=== PATIENT | female | born 1985 | race Caucasian/White ===

== ENCOUNTER 2017-10-05 00:23 | Inpatient (IN) | payer OTHER, MEDICAID ==
[~2017-10-05] VITALS: Ht 167.6 cm; Wt 68.3 kg
[~2017-10-05 00:23] MED LIST: CLOZ100 PO; DOCU250C91 PO; QUET300T2 PO
[2017-10-05 01:23] LABS: BASOPHILS % (AUTO) 0.7 % (0.0-2.0); EOSINOPHILS % (AUTO) 0.7 % (1.0-6.0); HEMATOCRIT 35.9 % (36-46); HEMOGLOBIN 12.4 g/dL (12.0-16.0); LYMPHOCYTES # (AUTO) 2.3 K/uL (1.0-4.8); LYMPHOCYTES % (AUTO) 35.3 % (22.0-44.0); MEAN CORPUSCULAR HEMOGLOBIN 30.4 pg (26.0-34.0); MEAN CORPUSCULAR HGB CONC 34.6 G/dL (31.0-37.0); MEAN CORPUSCULAR VOLUME 88 fL (80-100); MONOCYTES # (AUTO) 0.7 K/uL (0.1-1.0); MONOCYTES % (AUTO) 10.7 % (2.0-9.0); NEUTROPHILS # (AUTO) 3.4 K/uL (1.8-7.7); NEUTROPHILS % (AUTO) 52.6 % (40.0-70.0); PLATELET COUNT (AUTO) 260 K/uL (150-450); RED BLOOD CELL COUNT(AUTO) 4.09 MIL/uL (4.00-5.20)
[2017-10-05 01:39] LABS: ANION GAP 8 mmol/L (8-16); CALCIUM, TOTAL 9.1 mg/dL (8.8-10.5); CARBON DIOXIDE 25 mmol/L (22-29); CHLORIDE 106 mmol/L (98-107); CREATININE 1.13 mg/dL (0.60-1.30); GLOMERULAR FILTR. RATE CALC 56 mL/min (>60); GLUCOSE,RANDOM 125 mg/dL (70-110); POTASSIUM 3.8 mmol/L (3.5-5.1); SODIUM SERUM 139 mmol/L (136-145); UREA NITROGEN, BLOOD 13 mg/dL (7-18)
[2017-10-05 01:44] LABS: ALANINE AMINOTRANSFERASE 22 U/L (12-78); ALBUMIN 3.9 g/dL (3.4-5.0); ALKALINE PHOSPHATASE 47 U/L (46-116); ASPARTATE AMINOTRANSFERASE 20 U/L (15-37); BILIRUBIN,TOTAL 0.3 mg/dL (0.1-1.0); TOTAL PROTEIN, SERUM 7.5 g/dL (6.4-8.2)
[2017-10-05 05:24] LABS: AMPHET/METH SCREEN,URINE NEGATIVE (NEGATIVE); BARBITURATE SCREEN, URINE NEGATIVE (NEGATIVE); BENZODIAZEPINES SCREEN,URINE NEGATIVE (NEGATIVE); CANNABINOID SCREEN,URINE NEGATIVE (NEGATIVE); COCAINE SCREEN,URINE NEGATIVE (NEGATIVE); METHADONE SCREEN, URINE NEGATIVE (NEGATIVE); OPIATE SCREEN,URINE NEGATIVE (NEGATIVE)
[2017-10-05 05:25] LABS: PHENCYCLIDINE SCREEN,URINE NEGATIVE (NEGATIVE)
[2017-10-05] MEDS ORDERED: ZOLPIDEM TARTRATE 10 MG TABLET PO PRN (06:45)
[2017-10-05 18:33] VITALS: BP 102/64
[2017-10-06 01:07] VITALS: BP 121/79
[2017-10-06 08:22] VITALS: BP 125/71
[2017-10-06 16:23] VITALS: BP 136/76
[2017-10-07 01:20] VITALS: BP 122/73
[2017-10-07 08:30] VITALS: BP 118/79
[2017-10-07 09:57] LABS: GLUCOMETER DEV NAME(LOC) BV3S 2; GLUCOSE,POINT OF CARE 105 MG/DL (70-110)
[2017-10-07] MEDS ORDERED: LORazepam 2 MG/ML VIAL IM ONE (10:00)
[2017-10-07] MEDS ORDERED: HALOPERIDOL LACTATE 5 MG/ML VIAL IM ONE (10:00)
[2017-10-07 14:14] VITALS: BP 120/62
[2017-10-07 16:11] VITALS: BP 115/68
[2017-10-07] MEDS: LORazepam 2 MG TABLET PO PRN (16:15)
[2017-10-07] MEDS: HALOPERIDOL 5 MG TABLET PO PRN (16:15)
[2017-10-07] MEDS: TOPIRAMATE 100 MG TABLET PO SCH (16:16)
[2017-10-07] MEDS: CloZAPine 100 MG TABLET PO SCH (20:59)
[2017-10-07] MEDS: LORazepam 0.5 MG TABLET PO SCH (20:59)
[2017-10-08 07:15] VITALS: BP 110/69
[2017-10-08] MEDS: TOPIRAMATE 100 MG TABLET PO SCH ×2 (08:14→16:31)
[2017-10-08] MEDS: BuPROPion HCL 75 MG TABLET PO SCH (08:14)
[2017-10-08] MEDS: DOCUSATE SODIUM 250 MG CAPSULE PO SCH (08:14)
[2017-10-08] MEDS: CloZAPine 100 MG TABLET PO SCH ×2 (08:14→20:21)
[2017-10-08] MEDS: LORazepam 2 MG TABLET PO PRN ×2 (08:16→16:31)
[2017-10-08 08:48] VITALS: BP 101/64
[2017-10-08 16:20] VITALS: BP 117/63
[2017-10-08] MEDS ORDERED: ACETAMINOPHEN 325 MG TABLET PO PRN (20:00)
[2017-10-08] MEDS ORDERED: IBUPROFEN 600 MG TABLET PO PRN (20:00)
[2017-10-08] MEDS: LORazepam 0.5 MG TABLET PO SCH (20:21)
[2017-10-09 04:45] VITALS: BP 115/70
[2017-10-09] MEDS: BuPROPion HCL 75 MG TABLET PO SCH (08:09)
[2017-10-09] MEDS: TOPIRAMATE 100 MG TABLET PO SCH ×2 (08:09→16:12)
[2017-10-09] MEDS: DOCUSATE SODIUM 250 MG CAPSULE PO SCH (08:09)
[2017-10-09] MEDS: CloZAPine 100 MG TABLET PO SCH ×2 (08:09→20:23)
[2017-10-09] MEDS: LORazepam 2 MG TABLET PO PRN ×2 (08:09→16:12)
[2017-10-09 08:38] VITALS: BP 107/72
[2017-10-09 08:50] LABS: FREE T4 (FREE THYROXINE) 1.17 ng/dL (0.76-1.46); THYROID STIMULATING HORMONE 2.03 uIU/mL (0.36-3.74)
[2017-10-09 16:10] VITALS: BP 129/69
[2017-10-09] MEDS: LORazepam 0.5 MG TABLET PO SCH (20:23)
[2017-10-10] MEDS: LORazepam 2 MG TABLET PO PRN ×3 (06:22→16:48)
[2017-10-10] MEDS: BuPROPion HCL 75 MG TABLET PO SCH (08:14)
[2017-10-10] MEDS: DOCUSATE SODIUM 250 MG CAPSULE PO SCH (08:14)
[2017-10-10] MEDS: TOPIRAMATE 100 MG TABLET PO SCH ×2 (08:14→16:47)
[2017-10-10] MEDS: CloZAPine 100 MG TABLET PO SCH ×2 (08:14→20:26)
[2017-10-10 08:37] VITALS: BP 114/67
[2017-10-10] MEDS ORDERED: ONDANSETRON HCL 4 MG TABLET PO PRN (11:00)
[2017-10-10 16:28] VITALS: BP 116/68
[2017-10-10] MEDS: LORazepam 0.5 MG TABLET PO SCH (20:26)
[2017-10-11 05:57] VITALS: BP 125/68
[2017-10-11] MEDS: CloZAPine 100 MG TABLET PO SCH ×2 (08:08→20:20)
[2017-10-11] MEDS: DOCUSATE SODIUM 250 MG CAPSULE PO SCH (08:08)
[2017-10-11] MEDS: TOPIRAMATE 100 MG TABLET PO SCH ×2 (08:08→16:08)
[2017-10-11] MEDS: BuPROPion HCL 75 MG TABLET PO SCH (08:13)
[2017-10-11 08:36] VITALS: BP 111/70
[2017-10-11] MEDS: LORazepam 2 MG TABLET PO PRN (16:08)
[2017-10-11 16:11] VITALS: BP 125/93
[2017-10-11] MEDS: LORazepam 0.5 MG TABLET PO SCH (20:20)
[2017-10-12 04:32] VITALS: BP 111/66
[2017-10-12 08:24] VITALS: BP 114/71
[2017-10-12] MEDS: LORazepam 2 MG TABLET PO PRN (08:25)
[2017-10-12] MEDS: DOCUSATE SODIUM 250 MG CAPSULE PO SCH (08:25)
[2017-10-12] MEDS: TOPIRAMATE 100 MG TABLET PO SCH ×2 (08:25→17:06)
[2017-10-12] MEDS: CloZAPine 100 MG TABLET PO SCH ×2 (08:25→20:52)
[2017-10-12] MEDS: BuPROPion HCL 75 MG TABLET PO SCH (08:25)
[2017-10-12 08:51] LABS: BASOPHILS % (AUTO) 0.8 % (0.0-2.0); EOSINOPHILS % (AUTO) 0.9 % (1.0-6.0); HEMATOCRIT 35.9 % (36-46); HEMOGLOBIN 12.5 g/dL (12.0-16.0); LYMPHOCYTES % (AUTO) 34.9 % (22.0-44.0); MEAN CORPUSCULAR HEMOGLOBIN 30.5 pg (26.0-34.0); MEAN CORPUSCULAR HGB CONC 34.8 G/dL (31.0-37.0); MEAN CORPUSCULAR VOLUME 88 fL (80-100); MONOCYTES # (AUTO) 0.6 K/uL (0.1-1.0); MONOCYTES % (AUTO) 10.2 % (2.0-9.0); NEUTROPHILS % (AUTO) 53.2 % (40.0-70.0); PLATELET COUNT (AUTO) 291 K/uL (150-450); RED BLOOD CELL COUNT(AUTO) 4.09 MIL/uL (4.00-5.20); RED CELL DISTRIBUTION WIDTH 13.3 % (11.5-14.5)
[2017-10-12 16:51] VITALS: BP 122/74
[2017-10-12] MEDS: LORazepam 0.5 MG TABLET PO SCH (20:52)
[2017-10-13 07:16] VITALS: BP 126/72
[2017-10-13 08:15] VITALS: BP 116/71
[2017-10-13] MEDS: BuPROPion HCL 75 MG TABLET PO SCH (08:37)
[2017-10-13] MEDS: DOCUSATE SODIUM 250 MG CAPSULE PO SCH (08:38)
[2017-10-13] MEDS: CloZAPine 100 MG TABLET PO SCH ×2 (08:38→20:50)
[2017-10-13] MEDS: LORazepam 2 MG TABLET PO PRN ×2 (08:38→16:47)
[2017-10-13] MEDS: TOPIRAMATE 100 MG TABLET PO SCH ×2 (08:38→17:32)
[2017-10-13 16:05] VITALS: BP 114/75
[2017-10-13] MEDS: HALOPERIDOL 5 MG TABLET PO PRN (16:47)
[2017-10-13] MEDS: LORazepam 0.5 MG TABLET PO SCH (20:50)
[2017-10-14 06:01] VITALS: BP 120/71
[2017-10-14] MEDS: CloZAPine 100 MG TABLET PO SCH ×2 (08:25→20:37)
[2017-10-14] MEDS: TOPIRAMATE 100 MG TABLET PO SCH ×2 (08:25→16:53)
[2017-10-14] MEDS: BuPROPion HCL 75 MG TABLET PO SCH (08:25)
[2017-10-14] MEDS: LORazepam 2 MG TABLET PO PRN (08:25)
[2017-10-14] MEDS: DOCUSATE SODIUM 250 MG CAPSULE PO SCH (08:25)
[2017-10-14 14:58] VITALS: BP 103/73
[2017-10-14 16:10] VITALS: BP 104/70
[2017-10-14] MEDS: LORazepam 0.5 MG TABLET PO SCH (20:37)
[2017-10-15 07:23] VITALS: BP 110/72
[2017-10-15] MEDS: TOPIRAMATE 100 MG TABLET PO SCH ×2 (08:12→17:28)
[2017-10-15] MEDS: HALOPERIDOL 5 MG TABLET PO PRN ×2 (08:13→16:16)
[2017-10-15] MEDS: CloZAPine 100 MG TABLET PO SCH ×2 (08:13→20:47)
[2017-10-15] MEDS: BuPROPion HCL 75 MG TABLET PO SCH (08:13)
[2017-10-15 08:15] VITALS: BP 117/67
[2017-10-15] MEDS: DOCUSATE SODIUM 250 MG CAPSULE PO SCH (08:44)
[2017-10-15 16:05] VITALS: BP 110/69
[2017-10-15] MEDS: LORazepam 2 MG TABLET PO PRN (16:16)
[2017-10-15] MEDS: LORazepam 0.5 MG TABLET PO SCH (20:47)
[2017-10-16 05:44] VITALS: BP 114/70
[2017-10-16 08:17] VITALS: BP 110/72
[2017-10-16] MEDS: DOCUSATE SODIUM 250 MG CAPSULE PO SCH (09:09)
[2017-10-16] MEDS: CloZAPine 100 MG TABLET PO SCH ×2 (09:09→20:09)
[2017-10-16] MEDS: HALOPERIDOL 5 MG TABLET PO PRN ×2 (09:10→16:58)
[2017-10-16] MEDS: LORazepam 2 MG TABLET PO PRN ×2 (09:10→16:58)
[2017-10-16] MEDS: TOPIRAMATE 100 MG TABLET PO SCH ×2 (09:10→17:34)
[2017-10-16] MEDS: BuPROPion HCL 75 MG TABLET PO SCH (09:10)
[2017-10-16 16:29] VITALS: BP 110/69
[2017-10-16] MEDS: LORazepam 0.5 MG TABLET PO SCH (20:10)
[2017-10-17 04:04] VITALS: BP 117/66
[2017-10-17 08:17] VITALS: BP 121/68
[2017-10-17] MEDS: DOCUSATE SODIUM 250 MG CAPSULE PO SCH (08:42)
[2017-10-17] MEDS: CloZAPine 100 MG TABLET PO SCH ×2 (08:42→20:31)
[2017-10-17] MEDS: TOPIRAMATE 100 MG TABLET PO SCH ×2 (08:43→17:04)
[2017-10-17] MEDS: BuPROPion HCL 75 MG TABLET PO SCH (08:43)
[2017-10-17] MEDS ORDERED: CLOZ100 PO (15:57)
[2017-10-17] MEDS ORDERED: BUPR75 PO (15:57)
[2017-10-17] MEDS ORDERED: DOCU250C91 PO (15:57)
[2017-10-17] MEDS ORDERED: TOPI100T37 PO (15:57)
[2017-10-17 16:09] VITALS: BP 123/74
[2017-10-17] MEDS: LORazepam 2 MG TABLET PO PRN (16:23)
[2017-10-17] MEDS: HALOPERIDOL 5 MG TABLET PO PRN (17:23)
[2017-10-17] MEDS: LORazepam 0.5 MG TABLET PO SCH (20:31)
[2017-10-18 06:41] VITALS: BP 107/73
[2017-10-18] MEDS: BuPROPion HCL 75 MG TABLET PO SCH (08:16)
[2017-10-18] MEDS: TOPIRAMATE 100 MG TABLET PO SCH ×2 (08:17→17:02)
[2017-10-18] MEDS: CloZAPine 100 MG TABLET PO SCH ×2 (08:18→20:20)
[2017-10-18] MEDS: DOCUSATE SODIUM 250 MG CAPSULE PO SCH (08:18)
[2017-10-18] MEDS: LORazepam 2 MG TABLET PO PRN ×2 (08:19→16:21)
[2017-10-18 08:30] VITALS: BP 105/76
[2017-10-18 16:05] VITALS: BP 110/74
[2017-10-18] MEDS: HALOPERIDOL 5 MG TABLET PO PRN (16:21)
[2017-10-18] MEDS: LORazepam 0.5 MG TABLET PO SCH (20:20)
[2017-10-19 05:48] VITALS: BP 110/68
[2017-10-19 08:31] VITALS: BP 110/74
[2017-10-19] MEDS: BuPROPion HCL 75 MG TABLET PO SCH (09:15)
[2017-10-19] MEDS: TOPIRAMATE 100 MG TABLET PO SCH (09:15)
[2017-10-19] MEDS: DOCUSATE SODIUM 250 MG CAPSULE PO SCH (09:15)
[2017-10-19] MEDS: CloZAPine 100 MG TABLET PO SCH (09:15)
== END 2017-10-19 13:00 | disposition home or self-care (01) | DRG 885 ==
LOC: EMS 00:26 → B3A 16:32
PROVIDERS: ADMIT Psychiatry & Neurology Psychiatry; ATTEND Psychiatry & Neurology Psychiatry
DX: F20.0 Paranoid schizophrenia (principal); R11.0 Nausea; R51 Headache; Z79.899 Other long term (current) drug therapy
CPT/HCPCS: 84439; 84443; 99285; G0480; J1630; J2060

== ENCOUNTER 2017-11-11 19:55 | Inpatient (IN) | payer OTHER, MEDICAID ==
[~2017-11-11] VITALS: Ht 170.2 cm; Wt 70.9 kg
[~2017-11-11 19:55] MED LIST changes: +BUPR75 PO; -QUET300T2 PO; +TOPI100T37 PO
[2017-11-11] MEDS ORDERED: LORA0.5T2 PO (21:07)
[2017-11-11] MEDS ORDERED: FOLI1 PO (21:07)
[2017-11-11] MEDS ORDERED: DIPH25 PO (21:07)
[2017-11-11] MEDS ORDERED: NORG1TAB13 PO (21:07)
[2017-11-11] MEDS ORDERED: CLOZ100 PO (21:07)
[2017-11-11] MEDS ORDERED: FENO160 PO (21:07)
[2017-11-11] MEDS ORDERED: OMEP20 PO (21:07)
[2017-11-11 21:41] LABS: BASOPHILS % (AUTO) 0.6 % (0.0-2.0); HEMATOCRIT 34.5 % (36-46); HEMOGLOBIN 11.8 g/dL (12.0-16.0); LYMPHOCYTES # (AUTO) 2.6 K/uL (1.0-4.8); LYMPHOCYTES % (AUTO) 33.9 % (22.0-44.0); MEAN CORPUSCULAR HEMOGLOBIN 30.4 pg (26.0-34.0); MEAN CORPUSCULAR HGB CONC 34.2 G/dL (31.0-37.0); MEAN CORPUSCULAR VOLUME 89 fL (80-100); MONOCYTES # (AUTO) 0.7 K/uL (0.1-1.0); MONOCYTES % (AUTO) 9.2 % (2.0-9.0); NEUTROPHILS # (AUTO) 4.3 K/uL (1.8-7.7); NEUTROPHILS % (AUTO) 55.3 % (40.0-70.0); PLATELET COUNT (AUTO) 297 K/uL (150-450); RED BLOOD CELL COUNT(AUTO) 3.88 MIL/uL (4.00-5.20); RED CELL DISTRIBUTION WIDTH 14.2 % (11.5-14.5)
[2017-11-11 21:53] LABS: ANION GAP 9 mmol/L (8-16); CARBON DIOXIDE 23 mmol/L (22-29); CHLORIDE 106 mmol/L (98-107); CREATININE 0.94 mg/dL (0.60-1.30); GLOMERULAR FILTR. RATE CALC > 60 mL/min (>60); GLUCOSE,RANDOM 106 mg/dL (70-110); POTASSIUM 3.5 mmol/L (3.5-5.1); SODIUM SERUM 138 mmol/L (136-145); UREA NITROGEN, BLOOD 13 mg/dL (7-18)
[2017-11-11 22:03] LABS: ALANINE AMINOTRANSFERASE 25 U/L (12-78); ALBUMIN 3.3 g/dL (3.4-5.0); ALKALINE PHOSPHATASE 55 U/L (46-116); ASPARTATE AMINOTRANSFERASE 16 U/L (15-37); BILIRUBIN,TOTAL 0.2 mg/dL (0.1-1.0); TOTAL PROTEIN, SERUM 6.9 g/dL (6.4-8.2)
[2017-11-11 22:29] LABS: AMPHET/METH SCREEN,URINE NEGATIVE (NEGATIVE); BARBITURATE SCREEN, URINE NEGATIVE (NEGATIVE); BENZODIAZEPINES SCREEN,URINE NEGATIVE (NEGATIVE); CANNABINOID SCREEN,URINE NEGATIVE (NEGATIVE); COCAINE SCREEN,URINE NEGATIVE (NEGATIVE); METHADONE SCREEN, URINE NEGATIVE (NEGATIVE); OPIATE SCREEN,URINE NEGATIVE (NEGATIVE)
[2017-11-11 22:30] LABS: PHENCYCLIDINE SCREEN,URINE NEGATIVE (NEGATIVE)
[2017-11-12 03:37] VITALS: BP 131/78
[2017-11-12 08:26] VITALS: BP 123/69
[2017-11-12 08:39] LABS: CHOL/HDL RATIO 2.3 (3.9-5.7)
[2017-11-12 16:10] VITALS: BP 134/94
[2017-11-12] MEDS: LORazepam 2 MG TABLET PO PRN (16:18)
[2017-11-12] MEDS: HALOPERIDOL 5 MG TABLET PO PRN (16:27)
[2017-11-12 16:30] VITALS: BP 128/78
[2017-11-12] MEDS: CloZAPine 100 MG TABLET PO SCH (21:00)
[2017-11-13 02:49] VITALS: BP 128/80
[2017-11-13] MEDS: HALOPERIDOL 5 MG TABLET PO PRN (04:09)
[2017-11-13] MEDS: LORazepam 2 MG TABLET PO PRN ×3 (04:09→16:13)
[2017-11-13 08:15] VITALS: BP 108/75
[2017-11-13] MEDS: TOPIRAMATE 100 MG TABLET PO SCH ×2 (08:44→16:13)
[2017-11-13] MEDS: CloZAPine 100 MG TABLET PO SCH ×2 (08:45→20:21)
[2017-11-13] MEDS: BuPROPion HCL 75 MG TABLET PO SCH (08:45)
[2017-11-14 04:32] VITALS: BP 114/76
[2017-11-14] MEDS: LORazepam 2 MG TABLET PO PRN ×3 (04:50→16:47)
[2017-11-14] MEDS: HALOPERIDOL 5 MG TABLET PO PRN ×2 (04:50→16:47)
[2017-11-14] MEDS: CloZAPine 100 MG TABLET PO SCH ×2 (08:17→20:29)
[2017-11-14] MEDS: BuPROPion HCL 75 MG TABLET PO SCH (08:17)
[2017-11-14] MEDS: TOPIRAMATE 100 MG TABLET PO SCH ×2 (08:17→16:46)
[2017-11-14 08:19] VITALS: BP 120/69
[2017-11-14 16:41] VITALS: BP 123/70
[2017-11-15 04:12] VITALS: BP 120/64
[2017-11-15] MEDS: CloZAPine 100 MG TABLET PO SCH ×2 (08:08→20:32)
[2017-11-15] MEDS: HALOPERIDOL 5 MG TABLET PO PRN ×2 (08:08→16:47)
[2017-11-15] MEDS: BuPROPion HCL 75 MG TABLET PO SCH (08:08)
[2017-11-15] MEDS: LORazepam 2 MG TABLET PO PRN ×2 (08:08→16:47)
[2017-11-15] MEDS: TOPIRAMATE 100 MG TABLET PO SCH ×2 (08:08→16:47)
[2017-11-15 08:21] VITALS: BP 121/78
[2017-11-15] MEDS ORDERED: HALOPERIDOL LACTATE 5 MG/ML VIAL ONE (08:48)
[2017-11-15] MEDS ORDERED: LORazepam 2 MG/ML VIAL ONE (08:48)
[2017-11-15] MEDS ORDERED: DiphenhydrAMINE HCL 50 MG/ML VIAL IM ONE (09:00)
[2017-11-15] MEDS ORDERED: LORazepam 2 MG/ML VIAL IM ONE (09:00)
[2017-11-15] MEDS ORDERED: HALOPERIDOL LACTATE 5 MG/ML VIAL IM ONE (09:00)
[2017-11-15 16:26] VITALS: BP 146/67
[2017-11-15] MEDS: ZOLPIDEM TARTRATE 10 MG TABLET PO PRN (20:32)
[2017-11-16 04:37] VITALS: BP 110/60
[2017-11-16] MEDS: HALOPERIDOL 5 MG TABLET PO PRN ×2 (05:59→17:09)
[2017-11-16] MEDS: LORazepam 2 MG TABLET PO PRN ×2 (05:59→17:09)
[2017-11-16] MEDS: BuPROPion HCL 75 MG TABLET PO SCH (08:52)
[2017-11-16] MEDS: CloZAPine 100 MG TABLET PO SCH ×2 (08:52→20:50)
[2017-11-16] MEDS: TOPIRAMATE 100 MG TABLET PO SCH ×2 (08:52→17:09)
[2017-11-16 09:15] VITALS: BP 118/72
[2017-11-16 17:09] VITALS: BP 125/77
[2017-11-16] MEDS: ZOLPIDEM TARTRATE 10 MG TABLET PO PRN (20:50)
[2017-11-17 01:15] VITALS: BP 109/61
[2017-11-17 08:12] LABS: APPEARANCE,URINE CLOUDY (CLEAR); BILIRUBIN,URINE NEGATIVE (NEGATIVE); GLUCOSE, URINE (UA) NEGATIVE (NEGATIVE); KETONES,URINE NEGATIVE (NEGATIVE); LEUKOCYTE ESTERASE ,URINE NEGATIVE (NEGATIVE); NITRATE,URINE NEGATIVE (NEGATIVE); OCCULT BLOOD,URINE MODERATE (NEGATIVE); PROTEIN,URINE NEGATIVE (NEGATIVE); UROBILINOGEN,URINE 0.2 mg/dL (<=1.0)
[2017-11-17 08:27] LABS: BACTERIA,URINE Few /HPF (None Seen); SQUAMOUS EPITHELIAL CELL,UR Few /LPF (None Seen); WBC,URINE 0-2 /HPF (0-5)
[2017-11-17 08:28] LABS: AMORPHOUS SEDIMENT,UR Moderate /LPF (None Seen)
[2017-11-17] MEDS: LORazepam 2 MG TABLET PO PRN ×2 (08:32→16:14)
[2017-11-17] MEDS: BuPROPion HCL 75 MG TABLET PO SCH (08:32)
[2017-11-17] MEDS: TOPIRAMATE 100 MG TABLET PO SCH ×2 (08:32→16:14)
[2017-11-17] MEDS: CloZAPine 100 MG TABLET PO SCH ×2 (08:32→20:12)
[2017-11-17 08:40] VITALS: BP 118/73
[2017-11-17] MEDS: HALOPERIDOL 5 MG TABLET PO PRN (12:44)
[2017-11-17 16:20] VITALS: BP 119/72
[2017-11-18 06:55] VITALS: BP 127/50
[2017-11-18] MEDS: TOPIRAMATE 100 MG TABLET PO SCH (08:15)
[2017-11-18] MEDS: CloZAPine 100 MG TABLET PO SCH (08:15)
[2017-11-18] MEDS: BuPROPion HCL 75 MG TABLET PO SCH (08:16)
[2017-11-18] MEDS: LORazepam 2 MG TABLET PO PRN (08:16)
[2017-11-18 08:25] LABS: BASOPHILS % (AUTO) 0.5 % (0.0-2.0); EOSINOPHILS % (AUTO) 1.6 % (1.0-6.0); HEMATOCRIT 38.3 % (36-46); HEMOGLOBIN 13.1 g/dL (12.0-16.0); LYMPHOCYTES # (AUTO) 2.4 K/uL (1.0-4.8); LYMPHOCYTES % (AUTO) 36.2 % (22.0-44.0); MEAN CORPUSCULAR HEMOGLOBIN 30.8 pg (26.0-34.0); MEAN CORPUSCULAR HGB CONC 34.3 G/dL (31.0-37.0); MEAN CORPUSCULAR VOLUME 90 fL (80-100); MONOCYTES # (AUTO) 0.6 K/uL (0.1-1.0); MONOCYTES % (AUTO) 9.1 % (2.0-9.0); NEUTROPHILS # (AUTO) 3.4 K/uL (1.8-7.7); NEUTROPHILS % (AUTO) 52.6 % (40.0-70.0); PLATELET COUNT (AUTO) 310 K/uL (150-450); RED BLOOD CELL COUNT(AUTO) 4.26 MIL/uL (4.00-5.20); RED CELL DISTRIBUTION WIDTH 13.5 % (11.5-14.5)
[2017-11-18 08:34] VITALS: BP 127/69
[2017-11-18] MEDS ORDERED: CLOZ100 PO (10:18)
[2017-11-18] MEDS ORDERED: BUPR75 PO (10:19)
== END 2017-11-18 11:00 | disposition home or self-care (01) | DRG 885 ==
LOC: EMS 19:55 → B3A 11-12 01:32
PROVIDERS: ADMIT Psychiatry & Neurology Psychiatry; ATTEND Psychiatry & Neurology Psychiatry
DX: F20.0 Paranoid schizophrenia (principal); E78.5 Hyperlipidemia, unspecified; K21.9 Gastro-esophageal reflux disease without esophagitis; F32.9 Major depressive disorder, single episode, unspecified; F41.9 Anxiety disorder, unspecified; Z91.14 Patient's other noncompliance with medication regimen; Z79.899 Other long term (current) drug therapy
CPT/HCPCS: 87081; 99285; G0480; J1200; J1630; J2060

== ENCOUNTER 2017-12-03 09:40 | Inpatient (IN) | payer OTHER, MEDICAID ==
[~2017-12-03] VITALS: Ht 167.6 cm; Wt 76.7 kg
[~2017-12-03 09:40] MED LIST changes: -DOCU250C91 PO
[2017-12-03 10:06] LABS: BASOPHILS % (AUTO) 0.7 % (0.0-2.0); EOSINOPHILS % (AUTO) 2.4 % (1.0-6.0); HEMATOCRIT 37.5 % (36-46); HEMOGLOBIN 12.8 g/dL (12.0-16.0); LYMPHOCYTES # (AUTO) 2.4 K/uL (1.0-4.8); MEAN CORPUSCULAR HEMOGLOBIN 30.3 pg (26.0-34.0); MEAN CORPUSCULAR HGB CONC 34.1 G/dL (31.0-37.0); MEAN CORPUSCULAR VOLUME 89 fL (80-100); MONOCYTES # (AUTO) 0.7 K/uL (0.1-1.0); MONOCYTES % (AUTO) 10.3 % (2.0-9.0); NEUTROPHILS # (AUTO) 3.4 K/uL (1.8-7.7); NEUTROPHILS % (AUTO) 50.6 % (40.0-70.0); PLATELET COUNT (AUTO) 306 K/uL (150-450); RED BLOOD CELL COUNT(AUTO) 4.21 MIL/uL (4.00-5.20); RED CELL DISTRIBUTION WIDTH 13.4 % (11.5-14.5)
[2017-12-03 10:14] LABS: ANION GAP 9 mmol/L (8-16); CALCIUM, TOTAL 8.1 mg/dL (8.8-10.5); CARBON DIOXIDE 22 mmol/L (22-29); CHLORIDE 106 mmol/L (98-107); CREATININE 1.02 mg/dL (0.60-1.30); GLOMERULAR FILTR. RATE CALC > 60 mL/min (>60); GLUCOSE,RANDOM 104 mg/dL (70-110); POTASSIUM 3.4 mmol/L (3.5-5.1); SODIUM SERUM 137 mmol/L (136-145); UREA NITROGEN, BLOOD 15 mg/dL (7-18)
[2017-12-03 10:17] LABS: AMPHET/METH SCREEN,URINE NEGATIVE (NEGATIVE); BARBITURATE SCREEN, URINE NEGATIVE (NEGATIVE); BENZODIAZEPINES SCREEN,URINE NEGATIVE (NEGATIVE); CANNABINOID SCREEN,URINE NEGATIVE (NEGATIVE); COCAINE SCREEN,URINE NEGATIVE (NEGATIVE); METHADONE SCREEN, URINE NEGATIVE (NEGATIVE); OPIATE SCREEN,URINE NEGATIVE (NEGATIVE)
[2017-12-03 10:18] LABS: PHENCYCLIDINE SCREEN,URINE NEGATIVE (NEGATIVE)
[2017-12-03 10:19] LABS: ALANINE AMINOTRANSFERASE 29 U/L (12-78); ALBUMIN 3.7 g/dL (3.4-5.0); ALKALINE PHOSPHATASE 103 U/L (46-116); ASPARTATE AMINOTRANSFERASE 23 U/L (15-37); BILIRUBIN,TOTAL 0.2 mg/dL (0.1-1.0); TOTAL PROTEIN, SERUM 7.3 g/dL (6.4-8.2)
[2017-12-03] MEDS ORDERED: LORazepam 2 MG TABLET PO ONE (10:45)
[2017-12-03] MEDS ORDERED: HALOPERIDOL 5 MG TABLET PO ONE (10:45)
[2017-12-03 13:35] VITALS: BP 123/79
[2017-12-03 14:10] LABS: APPEARANCE,URINE CLOUDY (CLEAR); BILIRUBIN,URINE NEGATIVE (NEGATIVE); GLUCOSE, URINE (UA) NEGATIVE (NEGATIVE); KETONES,URINE NEGATIVE (NEGATIVE); LEUKOCYTE ESTERASE ,URINE SMALL (NEGATIVE); NITRATE,URINE NEGATIVE (NEGATIVE); OCCULT BLOOD,URINE NEGATIVE (NEGATIVE); PH,URINE 7.5 (5.0-8.0); PROTEIN,URINE NEGATIVE (NEGATIVE); UROBILINOGEN,URINE 0.2 mg/dL (<=1.0)
[2017-12-03 14:13] LABS: AMORPHOUS SEDIMENT,UR Moderate /LPF (None Seen); BACTERIA,URINE Rare /HPF (None Seen); RBC,URINE None Seen /HPF (0-2); SQUAMOUS EPITHELIAL CELL,UR Moderate /LPF (None Seen); WBC,URINE 0-2 /HPF (0-5)
[2017-12-03] MEDS ORDERED: POTASSIUM CHLORIDE 20 MEQ ER TABLET PO ONE (15:00)
[2017-12-03] MEDS ORDERED: GuaiFENesin/D-METHORPHAN [SUGAR-FREE] 200-20MG/10 ML SYRUP UDCUP PO PRN (15:00)
[2017-12-03] MEDS: TOPIRAMATE 100 MG TABLET PO SCH (16:11)
[2017-12-03] MEDS: CloZAPine 100 MG TABLET PO SCH (16:11)
[2017-12-03 16:15] VITALS: BP 124/72
[2017-12-03] MEDS: FLUTICASONE PROPIONATE 50 MCG/SPRAY 16 GM NASAL SPRAY NASAL SCH (16:21)
[2017-12-04 00:45] VITALS: BP 115/68
[2017-12-04] MEDS: HALOPERIDOL 5 MG TABLET PO PRN ×3 (01:34→16:22)
[2017-12-04] MEDS: ZOLPIDEM TARTRATE 10 MG TABLET PO PRN ×2 (01:34→20:27)
[2017-12-04] MEDS: BuPROPion HCL 75 MG TABLET PO SCH (08:34)
[2017-12-04] MEDS: CloZAPine 100 MG TABLET PO SCH ×2 (08:34→17:07)
[2017-12-04] MEDS: TOPIRAMATE 100 MG TABLET PO SCH ×2 (08:34→17:07)
[2017-12-04] MEDS: FLUTICASONE PROPIONATE 50 MCG/SPRAY 16 GM NASAL SPRAY NASAL SCH ×2 (08:34→17:07)
[2017-12-04] MEDS: LORazepam 2 MG TABLET PO PRN ×2 (08:35→16:22)
[2017-12-04 08:44] VITALS: BP 115/51
[2017-12-04 16:36] VITALS: BP 120/76
[2017-12-05 03:15] VITALS: BP 110/78
[2017-12-05 08:10] VITALS: BP 117/59
[2017-12-05] MEDS: TOPIRAMATE 100 MG TABLET PO SCH ×2 (08:33→17:01)
[2017-12-05] MEDS: CloZAPine 100 MG TABLET PO SCH ×2 (08:33→17:01)
[2017-12-05] MEDS: HALOPERIDOL 5 MG TABLET PO PRN ×2 (08:33→16:15)
[2017-12-05] MEDS: FLUTICASONE PROPIONATE 50 MCG/SPRAY 16 GM NASAL SPRAY NASAL SCH ×2 (08:33→17:01)
[2017-12-05] MEDS: BuPROPion HCL 75 MG TABLET PO SCH (08:33)
[2017-12-05] MEDS: LORazepam 2 MG TABLET PO PRN ×2 (08:33→16:15)
[2017-12-05 16:06] VITALS: BP 140/69
[2017-12-05] MEDS: ZOLPIDEM TARTRATE 10 MG TABLET PO PRN (21:07)
[2017-12-06 05:55] VITALS: BP 115/69
[2017-12-06 08:16] VITALS: BP 126/71
[2017-12-06] MEDS: FLUTICASONE PROPIONATE 50 MCG/SPRAY 16 GM NASAL SPRAY NASAL SCH ×2 (09:00→16:19)
[2017-12-06] MEDS: CloZAPine 100 MG TABLET PO SCH ×2 (09:20→16:19)
[2017-12-06] MEDS: HALOPERIDOL 5 MG TABLET PO PRN ×2 (09:21→13:49)
[2017-12-06] MEDS: BuPROPion HCL 75 MG TABLET PO SCH (09:21)
[2017-12-06] MEDS: LORazepam 2 MG TABLET PO PRN ×2 (09:21→13:48)
[2017-12-06] MEDS: TOPIRAMATE 100 MG TABLET PO SCH ×2 (09:21→16:18)
[2017-12-06] MEDS: OLANZapine 5 MG TABLET PO SCH ×2 (10:15→16:18)
[2017-12-06 16:00] VITALS: BP 117/64
[2017-12-07] MEDS: ZOLPIDEM TARTRATE 10 MG TABLET PO PRN (00:55)
[2017-12-07 01:50] VITALS: BP 105/62
[2017-12-07 08:20] VITALS: BP 123/79
[2017-12-07 08:48] LABS: BASOPHILS % (AUTO) 0.8 % (0.0-2.0); EOSINOPHILS % (AUTO) 2.3 % (1.0-6.0); LYMPHOCYTES # (AUTO) 2.3 K/uL (1.0-4.8); LYMPHOCYTES % (AUTO) 33.6 % (22.0-44.0); MEAN CORPUSCULAR HEMOGLOBIN 30.5 pg (26.0-34.0); MEAN CORPUSCULAR HGB CONC 34.2 G/dL (31.0-37.0); MEAN CORPUSCULAR VOLUME 89 fL (80-100); MONOCYTES # (AUTO) 0.6 K/uL (0.1-1.0); MONOCYTES % (AUTO) 9.5 % (2.0-9.0); NEUTROPHILS # (AUTO) 3.6 K/uL (1.8-7.7); NEUTROPHILS % (AUTO) 53.8 % (40.0-70.0); PLATELET COUNT (AUTO) 311 K/uL (150-450); RED CELL DISTRIBUTION WIDTH 13.1 % (11.5-14.5)
[2017-12-07 09:09] LABS: ALANINE AMINOTRANSFERASE 32 U/L (12-78); ALBUMIN 3.9 g/dL (3.4-5.0); ALKALINE PHOSPHATASE 95 U/L (46-116); ANION GAP 6 mmol/L (8-16); ASPARTATE AMINOTRANSFERASE 25 U/L (15-37); BILIRUBIN,TOTAL 0.2 mg/dL (0.1-1.0); CALCIUM, TOTAL 9.2 mg/dL (8.8-10.5); CARBON DIOXIDE 28 mmol/L (22-29); CHLORIDE 107 mmol/L (98-107); CREATININE 0.94 mg/dL (0.60-1.30); GLOMERULAR FILTR. RATE CALC > 60 mL/min (>60); GLUCOSE,RANDOM 65 mg/dL (70-110); POTASSIUM 3.9 mmol/L (3.5-5.1); SODIUM SERUM 141 mmol/L (136-145); TOTAL PROTEIN, SERUM 7.8 g/dL (6.4-8.2); UREA NITROGEN, BLOOD 22 mg/dL (7-18)
[2017-12-07] MEDS: LORazepam 2 MG TABLET PO PRN ×2 (09:20→13:56)
[2017-12-07] MEDS: CloZAPine 100 MG TABLET PO SCH ×2 (09:45→16:33)
[2017-12-07] MEDS: FLUTICASONE PROPIONATE 50 MCG/SPRAY 16 GM NASAL SPRAY NASAL SCH ×2 (09:45→16:33)
[2017-12-07] MEDS: TOPIRAMATE 100 MG TABLET PO SCH ×2 (09:45→16:33)
[2017-12-07] MEDS: OLANZapine 5 MG TABLET PO SCH ×2 (09:46→16:33)
[2017-12-07] MEDS: BuPROPion HCL 75 MG TABLET PO SCH (09:46)
[2017-12-07] MEDS: HALOPERIDOL 5 MG TABLET PO PRN ×2 (10:10→14:44)
[2017-12-07 16:05] VITALS: BP 125/74
[2017-12-08 05:01] VITALS: BP 124/74
[2017-12-08 08:31] VITALS: BP 127/75
[2017-12-08] MEDS: CloZAPine 100 MG TABLET PO SCH ×2 (09:00→16:48)
[2017-12-08] MEDS: BuPROPion HCL 75 MG TABLET PO SCH (09:00)
[2017-12-08] MEDS: TOPIRAMATE 100 MG TABLET PO SCH ×2 (09:00→16:48)
[2017-12-08] MEDS: OLANZapine 5 MG TABLET PO SCH ×2 (09:00→16:48)
[2017-12-08] MEDS: FLUTICASONE PROPIONATE 50 MCG/SPRAY 16 GM NASAL SPRAY NASAL SCH ×2 (09:00→16:48)
[2017-12-08] MEDS: LORazepam 2 MG TABLET PO PRN ×2 (09:01→16:48)
[2017-12-08] MEDS: HALOPERIDOL 5 MG TABLET PO PRN ×2 (10:57→16:48)
[2017-12-08 16:00] VITALS: BP 132/68
[2017-12-09 00:43] VITALS: BP 104/68
[2017-12-09] MEDS: BuPROPion HCL 75 MG TABLET PO SCH (08:13)
[2017-12-09] MEDS: LORazepam 2 MG TABLET PO PRN ×2 (08:13→16:26)
[2017-12-09] MEDS: OLANZapine 5 MG TABLET PO SCH ×2 (08:13→16:26)
[2017-12-09] MEDS: CloZAPine 100 MG TABLET PO SCH ×2 (08:13→16:26)
[2017-12-09] MEDS: TOPIRAMATE 100 MG TABLET PO SCH ×2 (08:13→16:26)
[2017-12-09] MEDS: FLUTICASONE PROPIONATE 50 MCG/SPRAY 16 GM NASAL SPRAY NASAL SCH ×2 (09:03→16:26)
[2017-12-09] MEDS: HALOPERIDOL 5 MG TABLET PO PRN ×2 (09:21→16:26)
[2017-12-09 11:04] VITALS: BP 102/63
[2017-12-09 16:10] VITALS: BP 109/73
[2017-12-10 01:29] VITALS: BP 115/70
[2017-12-10] MEDS: FLUTICASONE PROPIONATE 50 MCG/SPRAY 16 GM NASAL SPRAY NASAL SCH ×2 (08:11→16:04)
[2017-12-10] MEDS: TOPIRAMATE 100 MG TABLET PO SCH ×2 (08:12→16:04)
[2017-12-10] MEDS: BuPROPion HCL 75 MG TABLET PO SCH (08:12)
[2017-12-10] MEDS: OLANZapine 5 MG TABLET PO SCH ×2 (08:12→16:04)
[2017-12-10] MEDS: CloZAPine 100 MG TABLET PO SCH ×3 (08:12→20:43)
[2017-12-10] MEDS: LORazepam 2 MG TABLET PO PRN ×2 (08:13→16:04)
[2017-12-10] MEDS: HALOPERIDOL 5 MG TABLET PO PRN ×2 (08:25→17:23)
[2017-12-10 08:36] VITALS: BP 114/67
[2017-12-10 16:05] VITALS: BP 131/71
[2017-12-10] MEDS ORDERED: BISACODYL 5 MG EC TABLET PO PRN (19:15)
[2017-12-10] MEDS ORDERED: LACTULOSE 20 GM/30 ML SOLUTION UDCUP PO PRN (19:15)
[2017-12-10] MEDS: DOCUSATE SODIUM 250 MG CAPSULE PO SCH (20:43)
[2017-12-10] MEDS: PALIPERIDONE 6 MG ER TABLET PO SCH (20:43)
[2017-12-10] MEDS ORDERED: DOCUSATE SODIUM 100 MG CAPSULE PO SCH (21:00)
[2017-12-11 02:34] VITALS: BP 104/64
[2017-12-11] MEDS: TOPIRAMATE 100 MG TABLET PO SCH ×2 (08:13→16:42)
[2017-12-11] MEDS: DOCUSATE SODIUM 250 MG CAPSULE PO SCH ×2 (08:13→16:42)
[2017-12-11] MEDS: LORazepam 2 MG TABLET PO PRN ×2 (08:13→17:50)
[2017-12-11] MEDS: CloZAPine 100 MG TABLET PO SCH ×2 (08:13→20:38)
[2017-12-11] MEDS: FLUTICASONE PROPIONATE 50 MCG/SPRAY 16 GM NASAL SPRAY NASAL SCH ×2 (08:18→16:42)
[2017-12-11 08:24] VITALS: BP 116/67
[2017-12-11] MEDS: BuPROPion HCL 75 MG TABLET PO SCH (08:32)
[2017-12-11] MEDS: HALOPERIDOL 5 MG TABLET PO PRN ×2 (09:24→17:50)
[2017-12-11 16:07] VITALS: BP 125/66
[2017-12-11] MEDS: PALIPERIDONE 6 MG ER TABLET PO SCH (20:38)
[2017-12-12 05:01] VITALS: BP 119/60
[2017-12-12 08:14] VITALS: BP 111/69
[2017-12-12] MEDS: CloZAPine 100 MG TABLET PO SCH ×2 (08:18→20:19)
[2017-12-12] MEDS: DOCUSATE SODIUM 250 MG CAPSULE PO SCH ×2 (08:18→17:00)
[2017-12-12] MEDS: BuPROPion HCL 75 MG TABLET PO SCH (08:18)
[2017-12-12] MEDS: TOPIRAMATE 100 MG TABLET PO SCH ×2 (08:18→17:00)
[2017-12-12] MEDS: FLUTICASONE PROPIONATE 50 MCG/SPRAY 16 GM NASAL SPRAY NASAL SCH ×2 (08:18→17:00)
[2017-12-12] MEDS: LORazepam 2 MG TABLET PO PRN (08:48)
[2017-12-12] MEDS: HALOPERIDOL 5 MG TABLET PO PRN (09:40)
[2017-12-12 16:09] VITALS: BP 136/60
[2017-12-12] MEDS: PALIPERIDONE 6 MG ER TABLET PO SCH (20:37)
[2017-12-13 04:00] VITALS: BP 116/80
[2017-12-13 06:41] VITALS: BP 116/68
[2017-12-13] MEDS: TOPIRAMATE 100 MG TABLET PO SCH ×2 (08:20→17:14)
[2017-12-13] MEDS: DOCUSATE SODIUM 250 MG CAPSULE PO SCH ×2 (08:21→17:14)
[2017-12-13] MEDS: BuPROPion HCL 75 MG TABLET PO SCH (08:21)
[2017-12-13] MEDS: CloZAPine 100 MG TABLET PO SCH ×2 (08:21→20:40)
[2017-12-13] MEDS: LORazepam 2 MG TABLET PO PRN ×2 (08:21→17:14)
[2017-12-13] MEDS: FLUTICASONE PROPIONATE 50 MCG/SPRAY 16 GM NASAL SPRAY NASAL SCH ×2 (08:21→17:14)
[2017-12-13 08:40] VITALS: BP 119/72
[2017-12-13 09:07] LABS: BASOPHILS % (AUTO) 0.7 % (0.0-2.0); EOSINOPHILS % (AUTO) 1.6 % (1.0-6.0); HEMATOCRIT 38.3 % (36-46); HEMOGLOBIN 12.9 g/dL (12.0-16.0); LYMPHOCYTES # (AUTO) 2.4 K/uL (1.0-4.8); MEAN CORPUSCULAR HGB CONC 33.7 G/dL (31.0-37.0); MEAN CORPUSCULAR VOLUME 89 fL (80-100); MONOCYTES # (AUTO) 0.6 K/uL (0.1-1.0); MONOCYTES % (AUTO) 7.1 % (2.0-9.0); NEUTROPHILS # (AUTO) 5.1 K/uL (1.8-7.7); NEUTROPHILS % (AUTO) 61.6 % (40.0-70.0); PLATELET COUNT (AUTO) 281 K/uL (150-450); RED CELL DISTRIBUTION WIDTH 12.9 % (11.5-14.5)
[2017-12-13] MEDS: HALOPERIDOL 5 MG TABLET PO PRN ×2 (09:23→17:14)
[2017-12-13 16:49] VITALS: BP 116/60
[2017-12-13] MEDS: PALIPERIDONE 6 MG ER TABLET PO SCH (20:39)
[2017-12-14 03:29] VITALS: BP 102/67
[2017-12-14 08:01] VITALS: BP 121/73
[2017-12-14] MEDS: HALOPERIDOL 5 MG TABLET PO PRN ×2 (08:42→16:27)
[2017-12-14] MEDS: FLUTICASONE PROPIONATE 50 MCG/SPRAY 16 GM NASAL SPRAY NASAL SCH ×2 (08:42→16:26)
[2017-12-14] MEDS: DOCUSATE SODIUM 250 MG CAPSULE PO SCH ×2 (08:42→16:27)
[2017-12-14] MEDS: TOPIRAMATE 100 MG TABLET PO SCH ×2 (08:42→16:27)
[2017-12-14] MEDS: BuPROPion HCL 75 MG TABLET PO SCH (08:42)
[2017-12-14] MEDS: LORazepam 2 MG TABLET PO PRN ×2 (08:42→16:27)
[2017-12-14] MEDS: CloZAPine 100 MG TABLET PO SCH ×2 (08:42→20:18)
[2017-12-14 16:11] VITALS: BP 110/81
[2017-12-14] MEDS: PALIPERIDONE 6 MG ER TABLET PO SCH (20:18)
[2017-12-14] MEDS: ZOLPIDEM TARTRATE 10 MG TABLET PO PRN (20:18)
[2017-12-15 05:09] VITALS: BP 122/74
[2017-12-15] MEDS: BuPROPion HCL 75 MG TABLET PO SCH (09:19)
[2017-12-15] MEDS: FLUTICASONE PROPIONATE 50 MCG/SPRAY 16 GM NASAL SPRAY NASAL SCH ×2 (09:20→16:12)
[2017-12-15] MEDS: LORazepam 2 MG TABLET PO PRN ×2 (09:20→17:06)
[2017-12-15] MEDS: TOPIRAMATE 100 MG TABLET PO SCH ×2 (09:20→16:12)
[2017-12-15] MEDS: CloZAPine 100 MG TABLET PO SCH ×2 (09:20→20:31)
[2017-12-15] MEDS: DOCUSATE SODIUM 250 MG CAPSULE PO SCH ×2 (09:20→16:12)
[2017-12-15] MEDS: HALOPERIDOL 5 MG TABLET PO PRN ×2 (10:05→17:06)
[2017-12-15 16:34] VITALS: BP 109/64
[2017-12-15] MEDS: PALIPERIDONE 6 MG ER TABLET PO SCH (20:31)
[2017-12-16 05:58] VITALS: BP 110/72
[2017-12-16] MEDS: DOCUSATE SODIUM 250 MG CAPSULE PO SCH ×2 (08:29→16:15)
[2017-12-16] MEDS: CloZAPine 100 MG TABLET PO SCH ×2 (08:29→20:28)
[2017-12-16] MEDS: BuPROPion HCL 75 MG TABLET PO SCH (08:29)
[2017-12-16] MEDS: TOPIRAMATE 100 MG TABLET PO SCH ×2 (08:29→16:15)
[2017-12-16] MEDS: FLUTICASONE PROPIONATE 50 MCG/SPRAY 16 GM NASAL SPRAY NASAL SCH ×2 (08:29→16:15)
[2017-12-16] MEDS: LORazepam 2 MG TABLET PO PRN ×2 (08:29→17:15)
[2017-12-16 08:38] VITALS: BP 127/67
[2017-12-16] MEDS: HALOPERIDOL 5 MG TABLET PO PRN ×2 (09:16→17:15)
[2017-12-16 16:00] VITALS: BP 138/69
[2017-12-16] MEDS: PALIPERIDONE 6 MG ER TABLET PO SCH (20:28)
[2017-12-17 04:47] VITALS: BP 132/70
[2017-12-17 08:20] VITALS: BP 103/60
[2017-12-17] MEDS: CloZAPine 100 MG TABLET PO SCH ×2 (09:19→20:12)
[2017-12-17] MEDS: TOPIRAMATE 100 MG TABLET PO SCH ×2 (09:20→16:38)
[2017-12-17] MEDS: BuPROPion HCL 75 MG TABLET PO SCH (09:20)
[2017-12-17] MEDS: DOCUSATE SODIUM 250 MG CAPSULE PO SCH ×2 (09:20→16:38)
[2017-12-17] MEDS: FLUTICASONE PROPIONATE 50 MCG/SPRAY 16 GM NASAL SPRAY NASAL SCH ×2 (09:22→16:38)
[2017-12-17 10:40] VITALS: BP 119/74
[2017-12-17] MEDS: HALOPERIDOL 5 MG TABLET PO PRN ×2 (10:44→17:05)
[2017-12-17] MEDS: LORazepam 2 MG TABLET PO PRN ×2 (10:44→17:05)
[2017-12-17 16:07] VITALS: BP 122/69
[2017-12-17] MEDS: PALIPERIDONE 6 MG ER TABLET PO SCH (20:12)
[2017-12-18 03:54] VITALS: BP 110/61
[2017-12-18 08:30] VITALS: BP 122/72
[2017-12-18] MEDS: CloZAPine 100 MG TABLET PO SCH ×2 (09:22→20:12)
[2017-12-18] MEDS: DOCUSATE SODIUM 250 MG CAPSULE PO SCH ×2 (09:22→16:14)
[2017-12-18] MEDS: BuPROPion HCL 75 MG TABLET PO SCH (09:22)
[2017-12-18] MEDS: FLUTICASONE PROPIONATE 50 MCG/SPRAY 16 GM NASAL SPRAY NASAL SCH ×2 (09:22→16:13)
[2017-12-18] MEDS: TOPIRAMATE 100 MG TABLET PO SCH ×2 (09:23→16:14)
[2017-12-18] MEDS: HALOPERIDOL 5 MG TABLET PO PRN (16:14)
[2017-12-18] MEDS: LORazepam 2 MG TABLET PO PRN (16:14)
[2017-12-18 16:58] VITALS: BP 140/76
[2017-12-18] MEDS: PALIPERIDONE 6 MG ER TABLET PO SCH (20:12)
[2017-12-18] MEDS: ZOLPIDEM TARTRATE 10 MG TABLET PO PRN (21:23)
[2017-12-19 07:14] VITALS: BP 135/72
[2017-12-19] MEDS: BuPROPion HCL 75 MG TABLET PO SCH (08:06)
[2017-12-19] MEDS: CloZAPine 100 MG TABLET PO SCH ×2 (08:06→20:06)
[2017-12-19] MEDS: DOCUSATE SODIUM 250 MG CAPSULE PO SCH ×2 (08:06→16:15)
[2017-12-19] MEDS: HALOPERIDOL 5 MG TABLET PO PRN (08:06)
[2017-12-19] MEDS: TOPIRAMATE 100 MG TABLET PO SCH ×2 (08:06→16:15)
[2017-12-19] MEDS: FLUTICASONE PROPIONATE 50 MCG/SPRAY 16 GM NASAL SPRAY NASAL SCH ×2 (08:06→16:14)
[2017-12-19] MEDS: LORazepam 2 MG TABLET PO PRN (08:06)
[2017-12-19 08:18] VITALS: BP 113/81
[2017-12-19 17:36] VITALS: BP 129/81
[2017-12-19] MEDS: PALIPERIDONE 6 MG ER TABLET PO SCH (20:06)
[2017-12-20 03:02] VITALS: BP 125/78
[2017-12-20] MEDS: FLUTICASONE PROPIONATE 50 MCG/SPRAY 16 GM NASAL SPRAY NASAL SCH ×2 (08:28→16:00)
[2017-12-20] MEDS: DOCUSATE SODIUM 250 MG CAPSULE PO SCH ×2 (08:28→16:00)
[2017-12-20] MEDS: CloZAPine 100 MG TABLET PO SCH ×2 (08:28→20:04)
[2017-12-20] MEDS: TOPIRAMATE 100 MG TABLET PO SCH ×2 (08:29→16:00)
[2017-12-20 08:34] VITALS: BP 126/77
[2017-12-20] MEDS: BuPROPion HCL 75 MG TABLET PO SCH (08:51)
[2017-12-20 09:22] LABS: EOSINOPHILS % (AUTO) 1.1 % (1.0-6.0); HEMATOCRIT 41.3 % (36-46); HEMOGLOBIN 14.1 g/dL (12.0-16.0); LYMPHOCYTES # (AUTO) 2.4 K/uL (1.0-4.8); LYMPHOCYTES % (AUTO) 28.8 % (22.0-44.0); MEAN CORPUSCULAR HGB CONC 34.1 G/dL (31.0-37.0); MEAN CORPUSCULAR VOLUME 88 fL (80-100); MONOCYTES # (AUTO) 0.7 K/uL (0.1-1.0); MONOCYTES % (AUTO) 8.8 % (2.0-9.0); NEUTROPHILS % (AUTO) 60.3 % (40.0-70.0); PLATELET COUNT (AUTO) 335 K/uL (150-450); RED BLOOD CELL COUNT(AUTO) 4.69 MIL/uL (4.00-5.20); RED CELL DISTRIBUTION WIDTH 12.9 % (11.5-14.5)
[2017-12-20] MEDS ORDERED: ACETAMINOPHEN 325 MG TABLET PO PRN (11:00)
[2017-12-20] MEDS ORDERED: IBUPROFEN 600 MG TABLET PO PRN (11:00)
[2017-12-20 16:05] VITALS: BP 122/71
[2017-12-20] MEDS: PALIPERIDONE 6 MG ER TABLET PO SCH (20:04)
[2017-12-21 03:30] VITALS: BP 122/77
[2017-12-21] MEDS: HALOPERIDOL 5 MG TABLET PO PRN ×2 (05:09→10:26)
[2017-12-21] MEDS: LORazepam 2 MG TABLET PO PRN ×2 (05:09→10:26)
[2017-12-21 08:22] VITALS: BP 109/65
[2017-12-21] MEDS: CloZAPine 100 MG TABLET PO SCH ×2 (08:36→20:33)
[2017-12-21] MEDS: TOPIRAMATE 100 MG TABLET PO SCH ×2 (08:36→16:41)
[2017-12-21] MEDS: DOCUSATE SODIUM 250 MG CAPSULE PO SCH ×2 (08:37→16:41)
[2017-12-21] MEDS: BuPROPion HCL 75 MG TABLET PO SCH (08:37)
[2017-12-21] MEDS: FLUTICASONE PROPIONATE 50 MCG/SPRAY 16 GM NASAL SPRAY NASAL SCH ×2 (08:37→16:41)
[2017-12-21 16:32] VITALS: BP 125/72
[2017-12-21] MEDS: PALIPERIDONE 6 MG ER TABLET PO SCH (20:44)
[2017-12-22 04:51] VITALS: BP 103/62
[2017-12-22] MEDS: FLUTICASONE PROPIONATE 50 MCG/SPRAY 16 GM NASAL SPRAY NASAL SCH ×2 (08:17→16:44)
[2017-12-22] MEDS: DOCUSATE SODIUM 250 MG CAPSULE PO SCH ×2 (08:18→16:44)
[2017-12-22] MEDS: CloZAPine 100 MG TABLET PO SCH ×2 (08:18→20:53)
[2017-12-22] MEDS: TOPIRAMATE 100 MG TABLET PO SCH ×2 (08:18→16:44)
[2017-12-22] MEDS: BuPROPion HCL 75 MG TABLET PO SCH (08:18)
[2017-12-22 08:26] VITALS: BP 118/64
[2017-12-22] MEDS: LORazepam 2 MG TABLET PO PRN ×2 (09:59→16:44)
[2017-12-22] MEDS: HALOPERIDOL 5 MG TABLET PO PRN ×2 (09:59→16:44)
[2017-12-22 16:18] VITALS: BP 114/65
[2017-12-22] MEDS: PALIPERIDONE 6 MG ER TABLET PO SCH (20:53)
[2017-12-22] MEDS: ZOLPIDEM TARTRATE 10 MG TABLET PO PRN (20:53)
[2017-12-23 01:30] VITALS: BP 112/68
[2017-12-23 08:10] VITALS: BP 110/68
[2017-12-23] MEDS: DOCUSATE SODIUM 250 MG CAPSULE PO SCH ×2 (08:18→16:20)
[2017-12-23] MEDS: BuPROPion HCL 75 MG TABLET PO SCH (08:18)
[2017-12-23] MEDS: TOPIRAMATE 100 MG TABLET PO SCH ×2 (08:18→16:20)
[2017-12-23] MEDS: FLUTICASONE PROPIONATE 50 MCG/SPRAY 16 GM NASAL SPRAY NASAL SCH ×2 (08:18→16:20)
[2017-12-23] MEDS: CloZAPine 100 MG TABLET PO SCH ×2 (08:19→20:04)
[2017-12-23] MEDS: HALOPERIDOL 5 MG TABLET PO PRN ×2 (09:33→16:19)
[2017-12-23] MEDS: LORazepam 2 MG TABLET PO PRN ×2 (09:33→16:19)
[2017-12-23 16:00] VITALS: BP 116/70
[2017-12-23] MEDS: ZOLPIDEM TARTRATE 10 MG TABLET PO PRN (20:04)
[2017-12-23] MEDS: PALIPERIDONE 6 MG ER TABLET PO SCH (20:04)
[2017-12-24 06:06] VITALS: BP 104/65
[2017-12-24 08:16] VITALS: BP 110/69
[2017-12-24] MEDS: DOCUSATE SODIUM 250 MG CAPSULE PO SCH ×2 (09:11→15:58)
[2017-12-24] MEDS: CloZAPine 100 MG TABLET PO SCH ×2 (09:11→20:05)
[2017-12-24] MEDS: TOPIRAMATE 100 MG TABLET PO SCH ×2 (09:11→15:58)
[2017-12-24] MEDS: BuPROPion HCL 75 MG TABLET PO SCH (09:11)
[2017-12-24] MEDS: HALOPERIDOL 5 MG TABLET PO PRN (09:11)
[2017-12-24] MEDS: FLUTICASONE PROPIONATE 50 MCG/SPRAY 16 GM NASAL SPRAY NASAL SCH ×2 (09:15→15:59)
[2017-12-24] MEDS: LORazepam 2 MG TABLET PO PRN ×3 (10:25→16:30)
[2017-12-24 16:04] VITALS: BP 130/73
[2017-12-24] MEDS: PALIPERIDONE 6 MG ER TABLET PO SCH (20:05)
[2017-12-25 02:28] VITALS: BP 124/66
[2017-12-25] MEDS: ZOLPIDEM TARTRATE 10 MG TABLET PO PRN (03:01)
[2017-12-25 08:36] VITALS: BP 121/66
[2017-12-25] MEDS: FLUTICASONE PROPIONATE 50 MCG/SPRAY 16 GM NASAL SPRAY NASAL SCH ×2 (09:15→17:00)
[2017-12-25] MEDS: LORazepam 2 MG TABLET PO PRN ×3 (09:16→17:31)
[2017-12-25] MEDS: CloZAPine 100 MG TABLET PO SCH ×2 (09:16→19:50)
[2017-12-25] MEDS: BuPROPion HCL 75 MG TABLET PO SCH (09:16)
[2017-12-25] MEDS: DOCUSATE SODIUM 250 MG CAPSULE PO SCH ×2 (09:16→17:00)
[2017-12-25] MEDS: TOPIRAMATE 100 MG TABLET PO SCH ×2 (09:16→17:00)
[2017-12-25] MEDS: HALOPERIDOL 5 MG TABLET PO PRN ×2 (10:07→17:32)
[2017-12-25 16:04] VITALS: BP 123/70
[2017-12-25] MEDS: PALIPERIDONE 6 MG ER TABLET PO SCH (19:55)
[2017-12-26 03:41] VITALS: BP 106/77
[2017-12-26] MEDS: HALOPERIDOL 5 MG TABLET PO PRN ×2 (04:04→09:50)
[2017-12-26] MEDS: LORazepam 2 MG TABLET PO PRN ×2 (04:04→08:53)
[2017-12-26 08:25] VITALS: BP 102/68
[2017-12-26] MEDS: FLUTICASONE PROPIONATE 50 MCG/SPRAY 16 GM NASAL SPRAY NASAL SCH ×2 (08:53→16:12)
[2017-12-26] MEDS: TOPIRAMATE 100 MG TABLET PO SCH ×2 (08:53→16:12)
[2017-12-26] MEDS: CloZAPine 100 MG TABLET PO SCH ×2 (08:54→20:09)
[2017-12-26] MEDS: DOCUSATE SODIUM 250 MG CAPSULE PO SCH ×2 (08:54→16:12)
[2017-12-26] MEDS: BuPROPion HCL 75 MG TABLET PO SCH (08:54)
[2017-12-26] MEDS ORDERED: PALI234D IM (14:12)
[2017-12-26] MEDS ORDERED: FLUT16H NASAL (14:12)
[2017-12-26] MEDS ORDERED: CLOZ100 PO (14:12)
[2017-12-26] MEDS ORDERED: PALI6 PO (14:12)
[2017-12-26] MEDS ORDERED: DOCU250C91 PO (14:12)
[2017-12-26] MEDS ORDERED: BUPR75 PO (14:17)
[2017-12-26 16:11] VITALS: BP 120/72
[2017-12-26] MEDS: PALIPERIDONE 6 MG ER TABLET PO SCH (20:09)
[2017-12-27 01:06] VITALS: BP 111/62
[2017-12-27] MEDS: LORazepam 2 MG TABLET PO PRN (01:26)
[2017-12-27] MEDS: HALOPERIDOL 5 MG TABLET PO PRN (01:26)
[2017-12-27 08:17] VITALS: BP 123/69
[2017-12-27 08:22] LABS: BASOPHILS % (AUTO) 0.7 % (0.0-2.0); EOSINOPHILS % (AUTO) 2.3 % (1.0-6.0); HEMATOCRIT 40.2 % (36-46); HEMOGLOBIN 13.6 g/dL (12.0-16.0); LYMPHOCYTES # (AUTO) 2.4 K/uL (1.0-4.8); LYMPHOCYTES % (AUTO) 36.7 % (22.0-44.0); MEAN CORPUSCULAR HGB CONC 33.9 G/dL (31.0-37.0); MEAN CORPUSCULAR VOLUME 89 fL (80-100); MONOCYTES # (AUTO) 0.6 K/uL (0.1-1.0); MONOCYTES % (AUTO) 8.8 % (2.0-9.0); NEUTROPHILS # (AUTO) 3.4 K/uL (1.8-7.7); NEUTROPHILS % (AUTO) 51.5 % (40.0-70.0); PLATELET COUNT (AUTO) 307 K/uL (150-450); RED BLOOD CELL COUNT(AUTO) 4.54 MIL/uL (4.00-5.20); RED CELL DISTRIBUTION WIDTH 13.1 % (11.5-14.5)
[2017-12-27] MEDS: TOPIRAMATE 100 MG TABLET PO SCH (08:56)
[2017-12-27] MEDS: DOCUSATE SODIUM 250 MG CAPSULE PO SCH (08:56)
[2017-12-27] MEDS: CloZAPine 100 MG TABLET PO SCH (08:57)
[2017-12-27] MEDS: FLUTICASONE PROPIONATE 50 MCG/SPRAY 16 GM NASAL SPRAY NASAL SCH (08:57)
[2017-12-27] MEDS: BuPROPion HCL 75 MG TABLET PO SCH (08:57)
[2017-12-27] MEDS ORDERED: PALIPERIDONE PALMITATE 234 MG/1.5 ML SYRINGE IM SCH (09:00)
[2018-01-23] MEDS ORDERED: PALIPERIDONE PALMITATE 234 MG/1.5 ML SYRINGE IM SCH (09:00)
== END 2017-12-27 12:31 | disposition home or self-care (01) | DRG 885 ==
LOC: EMS 09:43 → B3A 11:49
PROVIDERS: ADMIT Psychiatry & Neurology Psychiatry; ATTEND Psychiatry & Neurology Psychiatry
DX: F20.0 Paranoid schizophrenia (principal); Z91.19 Patient's noncompliance with other medical treatment and regimen; F31.9 Bipolar disorder, unspecified; F41.9 Anxiety disorder, unspecified
CPT/HCPCS: 87081; 99285; G0480

== ENCOUNTER 2017-12-31 09:25 | Emergency (ER) | payer OTHER ==
[~2017-12-31] VITALS: Ht 162.6 cm; Wt 77.0 kg
[~2017-12-31 09:25] MED LIST changes: +DOCU250C91 PO; +FLUT16H NASAL; +PALI234D IM; +PALI6 PO
[2017-12-31 09:36] VITALS: BP 111/62
[2017-12-31 10:14] LABS: AMPHET/METH SCREEN,URINE NEGATIVE (NEGATIVE); BARBITURATE SCREEN, URINE NEGATIVE (NEGATIVE); BENZODIAZEPINES SCREEN,URINE NEGATIVE (NEGATIVE); CANNABINOID SCREEN,URINE NEGATIVE (NEGATIVE); COCAINE SCREEN,URINE NEGATIVE (NEGATIVE); METHADONE SCREEN, URINE NEGATIVE (NEGATIVE); OPIATE SCREEN,URINE NEGATIVE (NEGATIVE)
[2017-12-31 10:15] LABS: PHENCYCLIDINE SCREEN,URINE NEGATIVE (NEGATIVE)
[2017-12-31 10:19] LABS: BASOPHILS % (AUTO) 0.9 % (0.0-2.0); EOSINOPHILS % (AUTO) 2.6 % (1.0-6.0); HEMATOCRIT 34.2 % (36-46); HEMOGLOBIN 11.7 g/dL (12.0-16.0); LYMPHOCYTES % (AUTO) 36.6 % (22.0-44.0); MEAN CORPUSCULAR HEMOGLOBIN 30.1 pg (26.0-34.0); MEAN CORPUSCULAR HGB CONC 34.2 G/dL (31.0-37.0); MEAN CORPUSCULAR VOLUME 88 fL (80-100); MONOCYTES # (AUTO) 0.7 K/uL (0.1-1.0); MONOCYTES % (AUTO) 12.7 % (2.0-9.0); NEUTROPHILS # (AUTO) 2.5 K/uL (1.8-7.7); NEUTROPHILS % (AUTO) 47.2 % (40.0-70.0); PLATELET COUNT (AUTO) 245 K/uL (150-450); RED BLOOD CELL COUNT(AUTO) 3.89 MIL/uL (4.00-5.20)
[2017-12-31] MEDS ORDERED: HALOPERIDOL 5 MG TABLET PO ONE (10:30)
[2017-12-31] MEDS ORDERED: LORazepam 1 MG TABLET PO ONE (10:30)
[2017-12-31 10:41] LABS: ANION GAP 9 mmol/L (8-16); CALCIUM, TOTAL 8.9 mg/dL (8.8-10.5); CARBON DIOXIDE 24 mmol/L (22-29); CHLORIDE 107 mmol/L (98-107); CREATININE 0.83 mg/dL (0.60-1.30); GLOMERULAR FILTR. RATE CALC > 60 mL/min (>60); GLUCOSE,RANDOM 106 mg/dL (70-110); POTASSIUM 3.4 mmol/L (3.5-5.1); SODIUM SERUM 140 mmol/L (136-145); UREA NITROGEN, BLOOD 16 mg/dL (7-18)
[2017-12-31 10:46] LABS: ALANINE AMINOTRANSFERASE 30 U/L (12-78); ALBUMIN 3.6 g/dL (3.4-5.0); ALKALINE PHOSPHATASE 84 U/L (46-116); ASPARTATE AMINOTRANSFERASE 24 U/L (15-37); BILIRUBIN,TOTAL 0.3 mg/dL (0.1-1.0); TOTAL PROTEIN, SERUM 7.2 g/dL (6.4-8.2)
[2017-12-31] MEDS ORDERED: POTASSIUM CHLORIDE 20 MEQ ER TABLET PO ONE (11:00)
== END 2017-12-31 11:13 | disposition home or self-care (01) ==
LOC: EMS 09:27
DX: F32.9 Major depressive disorder, single episode, unspecified (principal); F41.9 Anxiety disorder, unspecified; F20.9 Schizophrenia, unspecified; Z79.899 Other long term (current) drug therapy
CPT/HCPCS: 36415; 80053; 80307; 85025; 99284; G0480

== ENCOUNTER 2018-03-13 11:15 | Inpatient (IN) | payer OTHER, MEDICAID ==
[~2018-03-13] VITALS: Ht 160 cm; Wt 86.8 kg
[~2018-03-13 11:15] MED LIST changes: -BUPR75 PO; +OMEP20 PO; -PALI234D IM; -PALI6 PO; -TOPI100T37 PO
[2018-03-13] MEDS ORDERED: PALIPERIDONE PALMITATE 234 MG/1.5 ML SYRINGE IM SCH (13:15)
[2018-03-13 13:21] VITALS: BP 122/74
[2018-03-13] MEDS ORDERED: PALI234D IM (13:42)
[2018-03-13 14:04] VITALS: BP 138/83
[2018-03-13] MEDS: LORazepam 2 MG TABLET PO PRN (14:14)
[2018-03-13] MEDS ORDERED: NORG1TAB13 PO (15:54)
[2018-03-13] MEDS ORDERED: FENO160 PO (15:56)
[2018-03-13 17:32] VITALS: BP 121/60
[2018-03-13] MEDS: CloZAPine 100 MG TABLET PO SCH (17:47)
[2018-03-13] MEDS: HALOPERIDOL 5 MG TABLET PO PRN (18:35)
[2018-03-14 00:02] VITALS: BP 117/74
[2018-03-14 08:12] VITALS: BP 117/67
[2018-03-14 08:14] LABS: BASOPHILS % (AUTO) 0.6 % (0.0-2.0); EOSINOPHILS % (AUTO) 0.3 % (1.0-6.0); HEMATOCRIT 42.8 % (36-46); HEMOGLOBIN 14.5 g/dL (12.0-16.0); LYMPHOCYTES # (AUTO) 2.7 K/uL (1.0-4.8); LYMPHOCYTES % (AUTO) 31.8 % (22.0-44.0); MEAN CORPUSCULAR HGB CONC 33.7 G/dL (31.0-37.0); MEAN CORPUSCULAR VOLUME 89 fL (80-100); MONOCYTES # (AUTO) 0.8 K/uL (0.1-1.0); MONOCYTES % (AUTO) 9.7 % (2.0-9.0); NEUTROPHILS # (AUTO) 4.9 K/uL (1.8-7.7); NEUTROPHILS % (AUTO) 57.6 % (40.0-70.0); PLATELET COUNT (AUTO) 310 K/uL (150-450); RED BLOOD CELL COUNT(AUTO) 4.81 MIL/uL (4.00-5.20); RED CELL DISTRIBUTION WIDTH 14.2 % (11.5-14.5)
[2018-03-14] MEDS: CloZAPine 100 MG TABLET PO SCH ×2 (08:46→16:50)
[2018-03-14] MEDS: LORazepam 2 MG TABLET PO PRN (08:48)
[2018-03-14] MEDS: HALOPERIDOL 5 MG TABLET PO PRN (08:48)
[2018-03-14 08:49] LABS: ALANINE AMINOTRANSFERASE 26 U/L (12-78); ALKALINE PHOSPHATASE 101 U/L (46-116); ANION GAP 7 mmol/L (8-16); ASPARTATE AMINOTRANSFERASE 17 U/L (15-37); BILIRUBIN,TOTAL 0.4 mg/dL (0.1-1.0); CALCIUM, TOTAL 9.2 mg/dL (8.8-10.5); CARBON DIOXIDE 30 mmol/L (22-29); CHLORIDE 102 mmol/L (98-107); CHOL/HDL RATIO 3.2 (3.9-5.7); CHOLESTEROL 168 mg/dL (131-200); FREE T4 (FREE THYROXINE) 0.81 ng/dL (0.76-1.46); GLOMERULAR FILTR. RATE CALC > 60 mL/min (>60); GLUCOSE,RANDOM 115 mg/dL (70-110); HCG,QUANTITATIVE < 1 mIU/mL (0-6); HDL CHOLESTEROL 53 mg/dL (40-60); LDL CHOL (CALC.) 59 mg/dL (0-130); POTASSIUM 3.9 mmol/L (3.5-5.1); SODIUM SERUM 139 mmol/L (136-145); THYROID STIMULATING HORMONE 1.81 uIU/mL (0.36-3.74); TOTAL PROTEIN, SERUM 8.1 g/dL (6.4-8.2); TRIGLYCERIDES 278 mg/dL (15-150); UREA NITROGEN, BLOOD 17 mg/dL (7-18)
[2018-03-14] MEDS ORDERED: FLUTICASONE PROPIONATE 50 MCG/SPRAY 16 GM NASAL SPRAY NASAL PRN (09:00)
[2018-03-14] MEDS: DOCUSATE SODIUM 250 MG CAPSULE PO SCH ×2 (10:18→16:50)
[2018-03-14 16:12] VITALS: BP 128/69
[2018-03-14] MEDS: ZOLPIDEM TARTRATE 10 MG TABLET PO PRN (21:27)
[2018-03-15 06:19] VITALS: BP 107/68
[2018-03-15] MEDS: CloZAPine 100 MG TABLET PO SCH ×2 (08:15→16:39)
[2018-03-15] MEDS: DOCUSATE SODIUM 250 MG CAPSULE PO SCH ×2 (08:15→16:39)
[2018-03-15] MEDS: LORazepam 2 MG TABLET PO PRN ×3 (08:16→20:33)
[2018-03-15 08:41] VITALS: BP 112/63
[2018-03-15] MEDS: HALOPERIDOL 5 MG TABLET PO PRN ×2 (09:44→16:39)
[2018-03-15 16:25] VITALS: BP 124/78
[2018-03-15] MEDS: ZOLPIDEM TARTRATE 10 MG TABLET PO PRN (20:33)
[2018-03-16 06:10] VITALS: BP 118/72
[2018-03-16] MEDS: DOCUSATE SODIUM 250 MG CAPSULE PO SCH ×2 (08:12→16:43)
[2018-03-16] MEDS: LORazepam 2 MG TABLET PO PRN (08:12)
[2018-03-16] MEDS: CloZAPine 100 MG TABLET PO SCH ×2 (08:12→16:43)
[2018-03-16 08:36] VITALS: BP 117/55
[2018-03-16] MEDS ORDERED: LACTULOSE 200 GM/300 ML RECTAL SOLUTION PR PRN (09:00)
[2018-03-16] MEDS ORDERED: LACTULOSE 20 GM/30 ML SOLUTION UDCUP PO PRN (09:00)
[2018-03-16] MEDS: POLYETHYLENE GLYCOL 3350 17 GM PACKET PO SCH ×2 (11:40→16:58)
[2018-03-16] MEDS: HALOPERIDOL 5 MG TABLET PO PRN (12:43)
[2018-03-16 16:20] VITALS: BP 137/87
[2018-03-16] MEDS: ZOLPIDEM TARTRATE 10 MG TABLET PO PRN (20:38)
[2018-03-17 07:26] VITALS: BP 126/73
[2018-03-17] MEDS: CloZAPine 100 MG TABLET PO SCH ×2 (08:31→16:42)
[2018-03-17] MEDS: DOCUSATE SODIUM 250 MG CAPSULE PO SCH ×2 (08:31→16:41)
[2018-03-17] MEDS: POLYETHYLENE GLYCOL 3350 17 GM PACKET PO SCH ×2 (08:32→16:41)
[2018-03-17 08:52] VITALS: BP 97/62
[2018-03-17 09:02] VITALS: BP 111/73
[2018-03-17] MEDS: LORazepam 2 MG TABLET PO PRN ×2 (09:02→14:52)
[2018-03-17] MEDS: HALOPERIDOL 5 MG TABLET PO PRN (16:42)
[2018-03-17 17:18] VITALS: BP 125/75
[2018-03-17] MEDS: ZOLPIDEM TARTRATE 10 MG TABLET PO PRN (21:51)
[2018-03-18 07:25] VITALS: BP 120/64
[2018-03-18 08:49] VITALS: BP 148/114
[2018-03-18] MEDS: CloZAPine 100 MG TABLET PO SCH ×2 (08:54→16:00)
[2018-03-18] MEDS: DOCUSATE SODIUM 250 MG CAPSULE PO SCH ×2 (08:56→16:01)
[2018-03-18] MEDS: HALOPERIDOL 5 MG TABLET PO PRN ×2 (08:57→16:01)
[2018-03-18] MEDS: LORazepam 2 MG TABLET PO PRN ×2 (08:57→16:01)
[2018-03-18] MEDS: POLYETHYLENE GLYCOL 3350 17 GM PACKET PO SCH ×2 (08:59→16:01)
[2018-03-18 17:06] VITALS: BP 130/75
[2018-03-18] MEDS: ZOLPIDEM TARTRATE 10 MG TABLET PO PRN (20:06)
[2018-03-19 06:25] VITALS: BP 122/67
[2018-03-19] MEDS: CloZAPine 100 MG TABLET PO SCH ×2 (08:22→16:40)
[2018-03-19] MEDS: DOCUSATE SODIUM 250 MG CAPSULE PO SCH ×2 (08:22→16:39)
[2018-03-19] MEDS: OMEGA-3/DHA/EPA/FISH OIL 500 MG CAPSULE PO SCH (08:22)
[2018-03-19] MEDS: POLYETHYLENE GLYCOL 3350 17 GM PACKET PO SCH ×2 (08:23→16:41)
[2018-03-19] MEDS: LORazepam 2 MG TABLET PO PRN ×2 (08:24→16:42)
[2018-03-19 08:30] VITALS: BP 138/70
[2018-03-19] MEDS: HALOPERIDOL 5 MG TABLET PO PRN ×2 (10:50→16:42)
[2018-03-19 16:18] VITALS: BP 132/77
[2018-03-19] MEDS: ZOLPIDEM TARTRATE 10 MG TABLET PO PRN (20:12)
[2018-03-20 06:06] VITALS: BP 124/81
[2018-03-20] MEDS: LORazepam 2 MG TABLET PO PRN ×2 (06:42→12:19)
[2018-03-20] MEDS: HALOPERIDOL 5 MG TABLET PO PRN (06:42)
[2018-03-20 08:40] VITALS: BP 116/67
[2018-03-20] MEDS: DOCUSATE SODIUM 250 MG CAPSULE PO SCH ×2 (08:42→16:03)
[2018-03-20] MEDS: OMEGA-3/DHA/EPA/FISH OIL 500 MG CAPSULE PO SCH (08:42)
[2018-03-20] MEDS: CloZAPine 100 MG TABLET PO SCH ×2 (08:42→16:03)
[2018-03-20] MEDS: POLYETHYLENE GLYCOL 3350 17 GM PACKET PO SCH ×2 (08:42→16:03)
[2018-03-20 16:11] VITALS: BP 128/78
[2018-03-21 06:44] VITALS: BP 132/75
[2018-03-21] MEDS: OMEGA-3/DHA/EPA/FISH OIL 500 MG CAPSULE PO SCH (08:03)
[2018-03-21] MEDS: CloZAPine 100 MG TABLET PO SCH (08:03)
[2018-03-21] MEDS: DOCUSATE SODIUM 250 MG CAPSULE PO SCH (08:04)
[2018-03-21] MEDS: POLYETHYLENE GLYCOL 3350 17 GM PACKET PO SCH (08:04)
[2018-03-21 08:16] VITALS: BP 111/59
[2018-03-21 08:33] LABS: BASOPHILS % (AUTO) 0.8 % (0.0-2.0); EOSINOPHILS % (AUTO) 1.5 % (1.0-6.0); HEMATOCRIT 43.4 % (36-46); HEMOGLOBIN 14.5 g/dL (12.0-16.0); LYMPHOCYTES # (AUTO) 2.7 K/uL (1.0-4.8); LYMPHOCYTES % (AUTO) 30.4 % (22.0-44.0); MEAN CORPUSCULAR HEMOGLOBIN 29.7 pg (26.0-34.0); MEAN CORPUSCULAR HGB CONC 33.5 G/dL (31.0-37.0); MEAN CORPUSCULAR VOLUME 89 fL (80-100); MONOCYTES # (AUTO) 0.7 K/uL (0.1-1.0); MONOCYTES % (AUTO) 8.2 % (2.0-9.0); NEUTROPHILS # (AUTO) 5.4 K/uL (1.8-7.7); NEUTROPHILS % (AUTO) 59.1 % (40.0-70.0); PLATELET COUNT (AUTO) 332 K/uL (150-450)
[2018-03-21] MEDS ORDERED: OMEG-50 PO (10:05)
[2018-03-21] MEDS ORDERED: MIRALAX PO (10:05)
[2018-04-10] MEDS ORDERED: PALIPERIDONE PALMITATE 234 MG/1.5 ML SYRINGE IM SCH (09:00)
== END 2018-03-21 13:45 | disposition home or self-care (01) | DRG 885 ==
LOC: B3A 12:00
PROVIDERS: ADMIT Psychiatry & Neurology Psychiatry; ATTEND Psychiatry & Neurology Psychiatry
DX: F20.0 Paranoid schizophrenia (principal); E78.5 Hyperlipidemia, unspecified; J30.9 Allergic rhinitis, unspecified; K59.00 Constipation, unspecified; Z79.899 Other long term (current) drug therapy
CPT/HCPCS: 80159; 84439; 84443; 87081

== ENCOUNTER 2018-06-03 18:54 | Inpatient (IN) | payer MEDICARE, MEDICAID ==
[~2018-06-03] VITALS: Ht 160 cm; Wt 83.5 kg
[~2018-06-03 18:54] MED LIST changes: +MIRALAX PO; +OMEG-50 PO; -OMEP20 PO; +PALI234D IM
[2018-06-03 20:10] VITALS: BP 137/91
[2018-06-03] MEDS ORDERED: ACETAMINOPHEN 325 MG TABLET PO PRN (20:45)
[2018-06-03] MEDS ORDERED: LOPERAMIDE HCL 2 MG CAPSULE PO PRN (20:45)
[2018-06-03] MEDS ORDERED: MAGNESIUM HYDROXIDE SUSPENSION 30 ML UDCUP PO PRN (20:45)
[2018-06-03] MEDS ORDERED: IBUPROFEN 600 MG TABLET PO PRN (20:45)
[2018-06-03] MEDS ORDERED: BENZOCAINE/MENTHOL LOZENGE MM PRN (20:45)
[2018-06-03] MEDS ORDERED: ALBUTEROL SULFATE HFA 90 MCG/PUFF 8 GM INHALER IH PRN (20:45)
[2018-06-03] MEDS ORDERED: PETROLATUM,WHITE 71 GM JELLY TP PRN (20:45)
[2018-06-03] MEDS ORDERED: CloNIDine HCL 0.1 MG TABLET PO PRN (20:45)
[2018-06-03] MEDS ORDERED: ONDANSETRON HCL 4 MG TABLET PO PRN (20:45)
[2018-06-03] MEDS ORDERED: MAG HYDROX/AL HYDROX/SIMETH ES 30 ML SUSPENSION UDCUP PO PRN (20:45)
[2018-06-03] MEDS ORDERED: BACITRACIN 28.4 GM OINTMENT TP PRN (20:45)
[2018-06-03] MEDS: LORazepam 2 MG TABLET PO PRN (21:39)
[2018-06-03] MEDS: HALOPERIDOL 5 MG TABLET PO PRN (21:39)
[2018-06-03] MEDS: ZOLPIDEM TARTRATE 10 MG TABLET PO PRN (21:39)
[2018-06-03] MEDS: CloZAPine 100 MG TABLET PO SCH ×2 (21:47→21:50)
[2018-06-04 07:18] VITALS: BP 139/89
[2018-06-04 08:00] LABS: BASOPHILS % (AUTO) 0.7 % (0.0-2.0); HEMATOCRIT 35.5 % (36-46); HEMOGLOBIN 12.1 g/dL (12.0-16.0); LYMPHOCYTES % (AUTO) 31.6 % (22.0-44.0); MEAN CORPUSCULAR HEMOGLOBIN 29.7 pg (26.0-34.0); MEAN CORPUSCULAR HGB CONC 34.1 G/dL (31.0-37.0); MEAN CORPUSCULAR VOLUME 87 fL (80-100); MONOCYTES # (AUTO) 0.6 K/uL (0.1-1.0); MONOCYTES % (AUTO) 8.9 % (2.0-9.0); NEUTROPHILS # (AUTO) 3.7 K/uL (1.8-7.7); NEUTROPHILS % (AUTO) 57.8 % (40.0-70.0); PLATELET COUNT (AUTO) 290 K/uL (150-450); RED BLOOD CELL COUNT(AUTO) 4.08 MIL/uL (4.00-5.20); RED CELL DISTRIBUTION WIDTH 13.8 % (11.5-14.5)
[2018-06-04 08:12] VITALS: BP 118/71
[2018-06-04] MEDS: FLUTICASONE PROPIONATE 50 MCG/SPRAY 16 GM NASAL SPRAY NASAL SCH (08:13)
[2018-06-04] MEDS: DOCUSATE SODIUM 250 MG CAPSULE PO SCH (08:13)
[2018-06-04] MEDS: POLYETHYLENE GLYCOL 3350 17 GM PACKET PO SCH (08:13)
[2018-06-04] MEDS: OMEGA-3/DHA/EPA/FISH OIL 500 MG CAPSULE PO SCH (08:13)
[2018-06-04] MEDS: OMEPRAZOLE 20 MG CAPSULE PO SCH (08:13)
[2018-06-04 08:55] LABS: ALANINE AMINOTRANSFERASE 22 U/L (12-78); ALBUMIN 3.9 g/dL (3.4-5.0); ALKALINE PHOSPHATASE 55 U/L (46-116); ANION GAP 9 mmol/L (8-16); ASPARTATE AMINOTRANSFERASE 14 U/L (15-37); BILIRUBIN,TOTAL 0.2 mg/dL (0.1-1.0); CALCIUM, TOTAL 9.3 mg/dL (8.8-10.5); CARBON DIOXIDE 27 mmol/L (22-29); CHLORIDE 103 mmol/L (98-107); CHOL/HDL RATIO 2.2 (3.9-5.7); CHOLESTEROL 145 mg/dL (131-200); CREATININE 0.99 mg/dL (0.60-1.30); FREE T4 (FREE THYROXINE) 0.88 ng/dL (0.76-1.46); GLOMERULAR FILTR. RATE CALC > 60 mL/min (>60); GLUCOSE,RANDOM 124 mg/dL (70-110); HCG,QUANTITATIVE < 1 mIU/mL (0-6); HDL CHOLESTEROL 65 mg/dL (40-60); LDL CHOL (CALC.) 51 mg/dL (0-130); POTASSIUM 4.1 mmol/L (3.5-5.1); SODIUM SERUM 139 mmol/L (136-145); THYROID STIMULATING HORMONE 2.62 uIU/mL (0.36-3.74); TOTAL PROTEIN, SERUM 7.3 g/dL (6.4-8.2); TRIGLYCERIDES 143 mg/dL (15-150); UREA NITROGEN, BLOOD 16 mg/dL (7-18)
[2018-06-04] MEDS ORDERED: CloZAPine 100 MG TABLET PO SCH (09:00)
[2018-06-04] MEDS ORDERED: POLYETHYLENE GLYCOL 3350 17 GM PACKET PO PRN (09:15)
[2018-06-04 09:27] LABS: HEMOGLOBIN A1C 5.8 % (4.5-6.2)
[2018-06-04] MEDS: CloZAPine 100 MG TABLET PO SCH ×2 (10:03→17:34)
[2018-06-04] MEDS: LORazepam 2 MG TABLET PO PRN ×2 (11:26→17:34)
[2018-06-04] MEDS: HALOPERIDOL 5 MG TABLET PO PRN (17:34)
[2018-06-04 19:01] VITALS: BP_SYST 110; BP_SYST 156; BP_DIAS 68; BP_DIAS 74
[2018-06-04 19:46] VITALS: BP 110/68
[2018-06-05] MEDS: ZOLPIDEM TARTRATE 10 MG TABLET PO PRN ×2 (00:28→21:17)
[2018-06-05 06:36] VITALS: BP 108/72
[2018-06-05] MEDS: FLUTICASONE PROPIONATE 50 MCG/SPRAY 16 GM NASAL SPRAY NASAL SCH (08:18)
[2018-06-05] MEDS: POLYETHYLENE GLYCOL 3350 17 GM PACKET PO SCH (08:18)
[2018-06-05] MEDS: DOCUSATE SODIUM 250 MG CAPSULE PO SCH (08:18)
[2018-06-05] MEDS: CloZAPine 100 MG TABLET PO SCH ×2 (08:18→16:45)
[2018-06-05] MEDS: OMEGA-3/DHA/EPA/FISH OIL 500 MG CAPSULE PO SCH (08:18)
[2018-06-05] MEDS: OMEPRAZOLE 20 MG CAPSULE PO SCH (08:18)
[2018-06-05] MEDS: LORazepam 2 MG TABLET PO PRN ×3 (08:19→16:45)
[2018-06-05 09:09] VITALS: BP 128/70
[2018-06-05] MEDS: HALOPERIDOL 5 MG TABLET PO PRN (16:45)
[2018-06-05 18:55] VITALS: BP 103/71
[2018-06-06 01:00] VITALS: BP 122/82
[2018-06-06 08:16] VITALS: BP 109/68
[2018-06-06] MEDS: CloZAPine 100 MG TABLET PO SCH ×2 (08:59→16:55)
[2018-06-06] MEDS: DOCUSATE SODIUM 250 MG CAPSULE PO SCH (09:01)
[2018-06-06] MEDS: POLYETHYLENE GLYCOL 3350 17 GM PACKET PO SCH (09:01)
[2018-06-06] MEDS: OMEGA-3/DHA/EPA/FISH OIL 500 MG CAPSULE PO SCH (09:01)
[2018-06-06] MEDS: FLUTICASONE PROPIONATE 50 MCG/SPRAY 16 GM NASAL SPRAY NASAL SCH (09:02)
[2018-06-06] MEDS: OMEPRAZOLE 20 MG CAPSULE PO SCH (09:02)
[2018-06-06] MEDS: LORazepam 2 MG TABLET PO PRN ×2 (09:41→16:10)
[2018-06-06] MEDS: HALOPERIDOL 5 MG TABLET PO PRN (09:41)
[2018-06-06 16:00] VITALS: BP 110/71
[2018-06-06] MEDS: ZOLPIDEM TARTRATE 10 MG TABLET PO PRN (21:09)
[2018-06-07] MEDS: LORazepam 2 MG TABLET PO PRN ×2 (03:09→08:15)
[2018-06-07 05:50] VITALS: BP 106/65
[2018-06-07] MEDS: POLYETHYLENE GLYCOL 3350 17 GM PACKET PO SCH (08:13)
[2018-06-07] MEDS: FLUTICASONE PROPIONATE 50 MCG/SPRAY 16 GM NASAL SPRAY NASAL SCH (08:13)
[2018-06-07] MEDS: DOCUSATE SODIUM 250 MG CAPSULE PO SCH (08:13)
[2018-06-07] MEDS: OMEPRAZOLE 20 MG CAPSULE PO SCH (08:13)
[2018-06-07] MEDS: CloZAPine 100 MG TABLET PO SCH (08:15)
[2018-06-07 08:21] VITALS: BP 125/60
[2018-06-07] MEDS: OMEGA-3/DHA/EPA/FISH OIL 500 MG CAPSULE PO SCH (08:53)
== END 2018-06-07 13:30 | disposition home or self-care (01) | DRG 885 ==
LOC: B3A 19:43
PROVIDERS: ADMIT Psychiatry & Neurology Psychiatry; ATTEND Psychiatry & Neurology Psychiatry
DX: F20.0 Paranoid schizophrenia (principal); G47.00 Insomnia, unspecified; E66.9 Obesity, unspecified; Z68.32 Body mass index [BMI] 32.0-32.9, adult; J31.0 Chronic rhinitis; K21.9 Gastro-esophageal reflux disease without esophagitis; K59.09 Other constipation; Z81.8 Family history of other mental and behavioral disorders; Z79.899 Other long term (current) drug therapy; Z56.0 Unemployment, unspecified
CPT/HCPCS: 83036; 84439; 84443; Q0162

== ENCOUNTER 2018-07-23 11:48 | Inpatient (IN) | payer MEDICARE, MEDICAID ==
[~2018-07-23] VITALS: Ht 160 cm; Wt 84.2 kg
[~2018-07-23 11:48] MED LIST changes: -DOCU250C91 PO; -FLUT16H NASAL; -MIRALAX PO; -OMEG-50 PO; -PALI234D IM
[2018-07-23 12:54] VITALS: BP 138/78
[2018-07-23] MEDS ORDERED: NORG1TAB13 PO (15:17)
[2018-07-23] MEDS ORDERED: FENO160 PO (15:17)
[2018-07-23] MEDS ORDERED: OMEP20 PO (15:17)
[2018-07-23] MEDS ORDERED: LINA145C PO (15:17)
[2018-07-23] MEDS ORDERED: BENZ2TAB10 PO (15:17)
[2018-07-23] MEDS ORDERED: DOCU250C91 PO (15:17)
[2018-07-23 16:17] VITALS: BP 132/78
[2018-07-23] MEDS ORDERED: ALBUTEROL SULFATE HFA 90 MCG/PUFF 8 GM INHALER IH PRN (16:30)
[2018-07-23] MEDS ORDERED: BENZOCAINE/MENTHOL LOZENGE MM PRN (16:30)
[2018-07-23] MEDS ORDERED: BACITRACIN 28.4 GM OINTMENT TP PRN (16:30)
[2018-07-23] MEDS ORDERED: CloNIDine HCL 0.1 MG TABLET PO PRN (16:30)
[2018-07-23] MEDS ORDERED: PETROLATUM,WHITE 71 GM JELLY TP PRN (16:30)
[2018-07-23] MEDS ORDERED: LOPERAMIDE HCL 2 MG CAPSULE PO PRN (16:30)
[2018-07-23] MEDS ORDERED: ONDANSETRON HCL 4 MG TABLET PO PRN (16:30)
[2018-07-23] MEDS ORDERED: CloZAPine 100 MG TABLET PO ONE (17:00)
[2018-07-23] MEDS: LORazepam 2 MG TABLET PO PRN (17:01)
[2018-07-23] MEDS: HALOPERIDOL 5 MG TABLET PO PRN (17:01)
[2018-07-23] MEDS: ZOLPIDEM TARTRATE 10 MG TABLET PO PRN (20:37)
[2018-07-23] MEDS: BENZTROPINE MESYLATE 2 MG TABLET PO SCH (20:37)
[2018-07-24 02:13] VITALS: BP 102/70
[2018-07-24] MEDS: ACETAMINOPHEN 325 MG TABLET PO PRN ×2 (02:15→08:39)
[2018-07-24] MEDS: MAG HYDROX/AL HYDROX/SIMETH ES 30 ML SUSPENSION UDCUP PO PRN (05:01)
[2018-07-24 08:08] VITALS: BP 113/67
[2018-07-24 08:39] VITALS: BP 113/67
[2018-07-24] MEDS: DOCUSATE SODIUM 100 MG CAPSULE PO SCH (08:40)
[2018-07-24] MEDS: OMEPRAZOLE 20 MG CAPSULE PO SCH (08:40)
[2018-07-24 09:12] LABS: BASOPHILS % (AUTO) 0.5 % (0.0-2.0); HEMATOCRIT 36.1 % (36-46); HEMOGLOBIN 11.9 g/dL (12.0-16.0); LYMPHOCYTES # (AUTO) 2.2 K/uL (1.0-4.8); LYMPHOCYTES % (AUTO) 34.4 % (22.0-44.0); MEAN CORPUSCULAR HEMOGLOBIN 29.1 pg (26.0-34.0); MEAN CORPUSCULAR VOLUME 88 fL (80-100); MONOCYTES # (AUTO) 0.6 K/uL (0.1-1.0); MONOCYTES % (AUTO) 8.9 % (2.0-9.0); NEUTROPHILS # (AUTO) 3.5 K/uL (1.8-7.7); NEUTROPHILS % (AUTO) 55.2 % (40.0-70.0); PLATELET COUNT (AUTO) 283 K/uL (150-450); RED BLOOD CELL COUNT(AUTO) 4.08 MIL/uL (4.00-5.20); RED CELL DISTRIBUTION WIDTH 13.1 % (11.5-14.5)
[2018-07-24 09:25] LABS: AMPHET/METH SCREEN,URINE NEGATIVE (NEGATIVE); BARBITURATE SCREEN, URINE NEGATIVE (NEGATIVE); BENZODIAZEPINES SCREEN,URINE NEGATIVE (NEGATIVE); CANNABINOID SCREEN,URINE NEGATIVE (NEGATIVE); COCAINE SCREEN,URINE NEGATIVE (NEGATIVE); METHADONE SCREEN, URINE NEGATIVE (NEGATIVE); OPIATE SCREEN,URINE NEGATIVE (NEGATIVE)
[2018-07-24 09:27] LABS: PHENCYCLIDINE SCREEN,URINE NEGATIVE (NEGATIVE)
[2018-07-24 09:33] LABS: ALANINE AMINOTRANSFERASE 19 U/L (12-78); ALBUMIN 3.6 g/dL (3.4-5.0); ALKALINE PHOSPHATASE 78 U/L (46-116); ANION GAP 12 mmol/L (8-16); ASPARTATE AMINOTRANSFERASE 15 U/L (15-37); BILIRUBIN,TOTAL 0.2 mg/dL (0.1-1.0); CALCIUM, TOTAL 9.3 mg/dL (8.8-10.5); CARBON DIOXIDE 25 mmol/L (22-29); CHLORIDE 103 mmol/L (98-107); CHOL/HDL RATIO 2.4 (3.9-5.7); CHOLESTEROL 147 mg/dL (131-200); FREE T4 (FREE THYROXINE) 0.94 ng/dL (0.76-1.46); GLOMERULAR FILTR. RATE CALC > 60 mL/min (>60); GLUCOSE,RANDOM 105 mg/dL (70-110); HCG,QUANTITATIVE < 1 mIU/mL (0-6); HDL CHOLESTEROL 61 mg/dL (40-60); LDL CHOL (CALC.) 59 mg/dL (0-130); SODIUM SERUM 140 mmol/L (136-145); THYROID STIMULATING HORMONE 2.55 uIU/mL (0.36-3.74); TOTAL PROTEIN, SERUM 7.5 g/dL (6.4-8.2); TRIGLYCERIDES 135 mg/dL (15-150); UREA NITROGEN, BLOOD 14 mg/dL (7-18)
[2018-07-24] MEDS: CloZAPine 100 MG TABLET PO SCH ×2 (12:17→16:21)
[2018-07-24] MEDS: LORazepam 2 MG TABLET PO PRN ×2 (13:14→17:33)
[2018-07-24] MEDS: HALOPERIDOL 5 MG TABLET PO PRN ×2 (13:14→17:33)
[2018-07-24 16:50] VITALS: BP 120/74
[2018-07-24] MEDS: BENZTROPINE MESYLATE 2 MG TABLET PO SCH (20:20)
[2018-07-24] MEDS: ZOLPIDEM TARTRATE 10 MG TABLET PO PRN (21:05)
[2018-07-25 06:31] VITALS: BP 106/68
[2018-07-25] MEDS: OMEPRAZOLE 20 MG CAPSULE PO SCH (08:02)
[2018-07-25] MEDS: CloZAPine 100 MG TABLET PO SCH ×2 (08:02→16:47)
[2018-07-25] MEDS: LORazepam 2 MG TABLET PO PRN ×2 (08:02→16:13)
[2018-07-25] MEDS: DOCUSATE SODIUM 100 MG CAPSULE PO SCH (08:02)
[2018-07-25 08:35] VITALS: BP 115/69
[2018-07-25] MEDS: HALOPERIDOL 5 MG TABLET PO PRN ×2 (10:39→16:13)
[2018-07-25] MEDS: MAG HYDROX/AL HYDROX/SIMETH ES 30 ML SUSPENSION UDCUP PO PRN (13:44)
[2018-07-25 16:00] VITALS: BP 110/63
[2018-07-25 16:07] VITALS: BP 101/63
[2018-07-25] MEDS: BENZTROPINE MESYLATE 2 MG TABLET PO SCH (20:23)
[2018-07-25] MEDS: ZOLPIDEM TARTRATE 10 MG TABLET PO PRN (21:09)
[2018-07-26 00:51] VITALS: BP 106/70
[2018-07-26] MEDS: LORazepam 2 MG TABLET PO PRN ×2 (07:22→16:35)
[2018-07-26 08:16] VITALS: BP 101/69
[2018-07-26] MEDS: OMEPRAZOLE 20 MG CAPSULE PO SCH (09:30)
[2018-07-26] MEDS: CloZAPine 100 MG TABLET PO SCH ×2 (09:30→19:43)
[2018-07-26] MEDS: HALOPERIDOL 5 MG TABLET PO PRN ×3 (09:30→19:38)
[2018-07-26] MEDS: DOCUSATE SODIUM 100 MG CAPSULE PO SCH (09:30)
[2018-07-26 16:10] VITALS: BP 116/77
[2018-07-26] MEDS: MAG HYDROX/AL HYDROX/SIMETH ES 30 ML SUSPENSION UDCUP PO PRN (17:08)
[2018-07-26] MEDS: BENZTROPINE MESYLATE 2 MG TABLET PO SCH (20:18)
[2018-07-26] MEDS: ZOLPIDEM TARTRATE 10 MG TABLET PO PRN (21:11)
[2018-07-27 01:37] VITALS: BP 101/66
[2018-07-27] MEDS: MAG HYDROX/AL HYDROX/SIMETH ES 30 ML SUSPENSION UDCUP PO PRN ×2 (06:10→12:32)
[2018-07-27] MEDS: LORazepam 2 MG TABLET PO PRN ×3 (06:33→17:41)
[2018-07-27] MEDS: OMEPRAZOLE 20 MG CAPSULE PO SCH (08:07)
[2018-07-27] MEDS: DOCUSATE SODIUM 100 MG CAPSULE PO SCH (08:07)
[2018-07-27] MEDS: CloZAPine 100 MG TABLET PO SCH ×2 (08:07→16:05)
[2018-07-27 08:16] VITALS: BP 137/67
[2018-07-27] MEDS: COLLOIDAL OATMEAL/DIMETH 227 GM LOTION TP SCH ×3 (08:44→16:05)
[2018-07-27] MEDS: HALOPERIDOL 5 MG TABLET PO PRN (09:26)
[2018-07-27] MEDS: POLYETHYLENE GLYCOL 3350 17 GM PACKET PO PRN (14:59)
[2018-07-27 15:52] VITALS: BP 114/64
[2018-07-27 16:57] VITALS: BP 114/64
[2018-07-27] MEDS: ACETAMINOPHEN 325 MG TABLET PO PRN (17:07)
[2018-07-27 18:07] VITALS: BP 112/70
[2018-07-27] MEDS: BENZTROPINE MESYLATE 2 MG TABLET PO SCH (20:18)
[2018-07-27] MEDS: ZOLPIDEM TARTRATE 10 MG TABLET PO PRN (22:42)
[2018-07-28 05:38] VITALS: BP 118/71
[2018-07-28 08:00] VITALS: BP 114/73
[2018-07-28] MEDS: COLLOIDAL OATMEAL/DIMETH 227 GM LOTION TP SCH ×3 (08:04→16:55)
[2018-07-28] MEDS: DOCUSATE SODIUM 100 MG CAPSULE PO SCH (08:05)
[2018-07-28] MEDS: OMEPRAZOLE 20 MG CAPSULE PO SCH (08:05)
[2018-07-28] MEDS: CloZAPine 100 MG TABLET PO SCH ×2 (08:06→16:55)
[2018-07-28] MEDS: LORazepam 2 MG TABLET PO PRN ×2 (08:19→16:01)
[2018-07-28 16:00] VITALS: BP 124/78
[2018-07-28] MEDS: HALOPERIDOL 5 MG TABLET PO PRN (16:01)
[2018-07-28] MEDS: MAGNESIUM HYDROXIDE SUSPENSION 30 ML UDCUP PO PRN (17:50)
[2018-07-28] MEDS: BENZTROPINE MESYLATE 2 MG TABLET PO SCH (20:39)
[2018-07-28 20:45] VITALS: BP 120/80
[2018-07-28] MEDS: ACETAMINOPHEN 325 MG TABLET PO PRN (20:49)
[2018-07-28] MEDS: ZOLPIDEM TARTRATE 10 MG TABLET PO PRN (21:32)
[2018-07-28] MEDS: POLYETHYLENE GLYCOL 3350 17 GM PACKET PO PRN (21:33)
[2018-07-28 21:45] VITALS: BP 118/78
[2018-07-29 04:43] VITALS: BP 115/82
[2018-07-29] MEDS: DOCUSATE SODIUM 100 MG CAPSULE PO SCH (08:12)
[2018-07-29] MEDS: OMEPRAZOLE 20 MG CAPSULE PO SCH (08:13)
[2018-07-29] MEDS: LORazepam 2 MG TABLET PO PRN ×2 (08:13→20:28)
[2018-07-29] MEDS: CloZAPine 100 MG TABLET PO SCH ×2 (08:13→16:13)
[2018-07-29 08:15] VITALS: BP 100/72
[2018-07-29] MEDS: COLLOIDAL OATMEAL/DIMETH 227 GM LOTION TP SCH ×3 (08:33→16:13)
[2018-07-29 16:12] VITALS: BP 136/89
[2018-07-29] MEDS: MAGNESIUM HYDROXIDE SUSPENSION 30 ML UDCUP PO PRN (18:08)
[2018-07-29] MEDS: MAG HYDROX/AL HYDROX/SIMETH ES 30 ML SUSPENSION UDCUP PO PRN (18:33)
[2018-07-29] MEDS: BENZTROPINE MESYLATE 2 MG TABLET PO SCH (20:28)
[2018-07-29] MEDS: HALOPERIDOL 5 MG TABLET PO PRN (20:28)
[2018-07-29] MEDS: ZOLPIDEM TARTRATE 10 MG TABLET PO PRN (20:28)
[2018-07-30 03:45] VITALS: BP 117/68
[2018-07-30] MEDS: OMEPRAZOLE 20 MG CAPSULE PO SCH (08:02)
[2018-07-30] MEDS: CloZAPine 100 MG TABLET PO SCH ×2 (08:03→16:20)
[2018-07-30] MEDS: DOCUSATE SODIUM 100 MG CAPSULE PO SCH (08:03)
[2018-07-30] MEDS: COLLOIDAL OATMEAL/DIMETH 227 GM LOTION TP SCH ×3 (08:04→16:20)
[2018-07-30 08:19] VITALS: BP 108/68
[2018-07-30] MEDS: LORazepam 2 MG TABLET PO PRN (08:59)
[2018-07-30] MEDS: HALOPERIDOL 5 MG TABLET PO PRN (12:59)
[2018-07-30] MEDS: MAG HYDROX/AL HYDROX/SIMETH ES 30 ML SUSPENSION UDCUP PO PRN ×2 (13:00→21:20)
[2018-07-30 16:22] VITALS: BP 127/76
[2018-07-30] MEDS: ACETAMINOPHEN 325 MG TABLET PO PRN (17:55)
[2018-07-30] MEDS: ZOLPIDEM TARTRATE 10 MG TABLET PO PRN (20:50)
[2018-07-30] MEDS: BENZTROPINE MESYLATE 2 MG TABLET PO SCH (21:05)
[2018-07-31 01:25] VITALS: BP 100/65
[2018-07-31] MEDS: MAG HYDROX/AL HYDROX/SIMETH ES 30 ML SUSPENSION UDCUP PO PRN ×2 (04:39→17:41)
[2018-07-31] MEDS: OMEPRAZOLE 20 MG CAPSULE PO SCH (08:00)
[2018-07-31] MEDS: DOCUSATE SODIUM 100 MG CAPSULE PO SCH (08:01)
[2018-07-31] MEDS: CloZAPine 100 MG TABLET PO SCH ×2 (08:01→16:09)
[2018-07-31] MEDS: LORazepam 2 MG TABLET PO PRN ×2 (08:01→16:59)
[2018-07-31] MEDS: COLLOIDAL OATMEAL/DIMETH 227 GM LOTION TP SCH ×3 (08:02→16:09)
[2018-07-31 08:19] VITALS: BP 111/75
[2018-07-31] MEDS: HALOPERIDOL 5 MG TABLET PO PRN (16:59)
[2018-07-31 17:41] VITALS: BP 125/73
[2018-07-31] MEDS: IBUPROFEN 600 MG TABLET PO PRN (17:41)
[2018-07-31] MEDS: BENZTROPINE MESYLATE 2 MG TABLET PO SCH (20:04)
[2018-07-31] MEDS: ZOLPIDEM TARTRATE 10 MG TABLET PO PRN (20:04)
[2018-08-01] MEDS: LORazepam 2 MG TABLET PO PRN ×2 (00:32→12:15)
[2018-08-01 01:03] VITALS: BP 119/73
[2018-08-01 08:08] LABS: BASOPHILS % (AUTO) 0.8 % (0.0-2.0); HEMATOCRIT 33.9 % (36-46); HEMOGLOBIN 11.5 g/dL (12.0-16.0); LYMPHOCYTES # (AUTO) 2.6 K/uL (1.0-4.8); LYMPHOCYTES % (AUTO) 34.7 % (22.0-44.0); MEAN CORPUSCULAR HEMOGLOBIN 30.1 pg (26.0-34.0); MEAN CORPUSCULAR HGB CONC 34.1 G/dL (31.0-37.0); MEAN CORPUSCULAR VOLUME 88 fL (80-100); MONOCYTES # (AUTO) 0.8 K/uL (0.1-1.0); MONOCYTES % (AUTO) 10.3 % (2.0-9.0); NEUTROPHILS # (AUTO) 4.1 K/uL (1.8-7.7); NEUTROPHILS % (AUTO) 53.2 % (40.0-70.0); PLATELET COUNT (AUTO) 277 K/uL (150-450); RED BLOOD CELL COUNT(AUTO) 3.84 MIL/uL (4.00-5.20); RED CELL DISTRIBUTION WIDTH 13.2 % (11.5-14.5)
[2018-08-01] MEDS: CloZAPine 100 MG TABLET PO SCH ×2 (08:15→16:19)
[2018-08-01] MEDS: DOCUSATE SODIUM 100 MG CAPSULE PO SCH (08:16)
[2018-08-01] MEDS: OMEPRAZOLE 20 MG CAPSULE PO SCH (08:16)
[2018-08-01 08:20] VITALS: BP 136/86
[2018-08-01] MEDS: IBUPROFEN 600 MG TABLET PO PRN (12:15)
[2018-08-01 16:19] VITALS: BP 118/80
== END 2018-08-01 18:00 | disposition home or self-care (01) | DRG 885 ==
LOC: B3A 14:00
PROVIDERS: ADMIT Psychiatry & Neurology Psychiatry; ATTEND Psychiatry & Neurology Psychiatry
DX: F20.0 Paranoid schizophrenia (principal); G47.00 Insomnia, unspecified; J31.0 Chronic rhinitis; K21.9 Gastro-esophageal reflux disease without esophagitis; K59.00 Constipation, unspecified; E66.9 Obesity, unspecified; Z91.5 Personal history of self-harm; Z68.32 Body mass index [BMI] 32.0-32.9, adult; Z56.0 Unemployment, unspecified; Z79.899 Other long term (current) drug therapy
CPT/HCPCS: 80159; 80307; 84439; 84443

== ENCOUNTER 2018-08-06 12:58 | Inpatient (IN) | payer MEDICARE, MEDICAID ==
[~2018-08-06] VITALS: Ht 167.6 cm; Wt 81.6 kg
[~2018-08-06 12:58] MED LIST changes: +BENZ2TAB10 PO
[2018-08-06 18:24] VITALS: BP 139/73
[2018-08-06] MEDS: HALOPERIDOL 5 MG TABLET PO PRN (20:33)
[2018-08-06] MEDS: LORazepam 2 MG TABLET PO PRN (20:33)
[2018-08-06] MEDS: ZOLPIDEM TARTRATE 10 MG TABLET PO PRN (21:48)
[2018-08-07 00:16] VITALS: BP 117/81
[2018-08-07 08:09] VITALS: BP 123/60
[2018-08-07] MEDS: LORazepam 2 MG TABLET PO PRN ×2 (08:16→14:08)
[2018-08-07] MEDS: HALOPERIDOL 5 MG TABLET PO PRN (08:16)
[2018-08-07 08:38] LABS: BASOPHILS % (AUTO) 0.7 % (0.0-2.0); HEMATOCRIT 37.5 % (36-46); HEMOGLOBIN 12.9 g/dL (12.0-16.0); LYMPHOCYTES # (AUTO) 2.2 K/uL (1.0-4.8); LYMPHOCYTES % (AUTO) 34.3 % (22.0-44.0); MEAN CORPUSCULAR HEMOGLOBIN 30.2 pg (26.0-34.0); MEAN CORPUSCULAR HGB CONC 34.4 G/dL (31.0-37.0); MEAN CORPUSCULAR VOLUME 88 fL (80-100); MONOCYTES # (AUTO) 0.7 K/uL (0.1-1.0); MONOCYTES % (AUTO) 10.9 % (2.0-9.0); NEUTROPHILS # (AUTO) 3.5 K/uL (1.8-7.7); NEUTROPHILS % (AUTO) 53.1 % (40.0-70.0); PLATELET COUNT (AUTO) 300 K/uL (150-450); RED BLOOD CELL COUNT(AUTO) 4.27 MIL/uL (4.00-5.20)
[2018-08-07 09:17] LABS: HEMOGLOBIN A1C 5.8 % (4.5-6.2)
[2018-08-07 09:35] LABS: ALANINE AMINOTRANSFERASE 21 U/L (12-78); ALBUMIN 4.4 g/dL (3.4-5.0); ALKALINE PHOSPHATASE 91 U/L (46-116); ANION GAP 6 mmol/L (8-16); ASPARTATE AMINOTRANSFERASE 17 U/L (15-37); BILIRUBIN,TOTAL 0.3 mg/dL (0.1-1.0); CALCIUM, TOTAL 9.7 mg/dL (8.8-10.5); CARBON DIOXIDE 30 mmol/L (22-29); CHLORIDE 104 mmol/L (98-107); CHOL/HDL RATIO 2.9 (3.9-5.7); CHOLESTEROL 189 mg/dL (131-200); CREATININE 0.83 mg/dL (0.60-1.30); FREE T4 (FREE THYROXINE) 0.96 ng/dL (0.76-1.46); GLOMERULAR FILTR. RATE CALC > 60 mL/min (>60); GLUCOSE,RANDOM 109 mg/dL (70-110); HCG,QUANTITATIVE < 1 mIU/mL (0-6); HDL CHOLESTEROL 65 mg/dL (40-60); LDL CHOL (CALC.) 90 mg/dL (0-130); POTASSIUM 4.1 mmol/L (3.5-5.1); SODIUM SERUM 140 mmol/L (136-145); THYROID STIMULATING HORMONE 2.42 uIU/mL (0.36-3.74); TOTAL PROTEIN, SERUM 8.1 g/dL (6.4-8.2); TRIGLYCERIDES 170 mg/dL (15-150); UREA NITROGEN, BLOOD 14 mg/dL (7-18)
[2018-08-07] MEDS: CloZAPine 100 MG TABLET PO SCH ×2 (10:52→17:18)
[2018-08-07] MEDS ORDERED: ONDANSETRON HCL 4 MG TABLET PO PRN (11:00)
[2018-08-07] MEDS ORDERED: LOPERAMIDE HCL 2 MG CAPSULE PO PRN (11:00)
[2018-08-07] MEDS ORDERED: CloNIDine HCL 0.1 MG TABLET PO PRN (11:00)
[2018-08-07] MEDS ORDERED: PETROLATUM,WHITE 71 GM JELLY TP PRN (11:00)
[2018-08-07] MEDS ORDERED: BACITRACIN 28.4 GM OINTMENT TP PRN (11:00)
[2018-08-07] MEDS ORDERED: DOCUSATE SODIUM 100 MG CAPSULE PO SCH (11:00)
[2018-08-07] MEDS ORDERED: BENZOCAINE/MENTHOL LOZENGE MM PRN (11:00)
[2018-08-07] MEDS ORDERED: ALBUTEROL SULFATE HFA 90 MCG/PUFF 8 GM INHALER IH PRN (11:00)
[2018-08-07] MEDS: OMEPRAZOLE 20 MG CAPSULE PO SCH (12:23)
[2018-08-07 16:07] VITALS: BP 127/82
[2018-08-07] MEDS: DOCUSATE SODIUM 100 MG CAPSULE PO SCH (17:18)
[2018-08-07] MEDS: HALOPERIDOL 10 MG TABLET PO SCH (20:15)
[2018-08-07] MEDS: ZOLPIDEM TARTRATE 10 MG TABLET PO PRN (21:24)
[2018-08-08 03:25] VITALS: BP 123/68
[2018-08-08] MEDS: ACETAMINOPHEN 325 MG TABLET PO PRN (03:29)
[2018-08-08] MEDS: LORazepam 2 MG TABLET PO PRN ×3 (07:07→16:24)
[2018-08-08 08:02] VITALS: BP 127/78
[2018-08-08] MEDS: DOCUSATE SODIUM 100 MG CAPSULE PO SCH ×2 (08:27→16:34)
[2018-08-08] MEDS: OMEPRAZOLE 20 MG CAPSULE PO SCH (08:27)
[2018-08-08] MEDS: CloZAPine 100 MG TABLET PO SCH ×2 (08:28→16:34)
[2018-08-08] MEDS: HALOPERIDOL 5 MG TABLET PO PRN (09:27)
[2018-08-08] MEDS: MAGNESIUM HYDROXIDE SUSPENSION 30 ML UDCUP PO PRN (11:47)
[2018-08-08 16:12] VITALS: BP 133/73
[2018-08-08] MEDS: HALOPERIDOL 10 MG TABLET PO SCH (20:17)
[2018-08-08] MEDS: ZOLPIDEM TARTRATE 10 MG TABLET PO PRN (20:20)
[2018-08-09 02:36] VITALS: BP 115/70
[2018-08-09] MEDS: IBUPROFEN 600 MG TABLET PO PRN (02:38)
[2018-08-09] MEDS: OMEPRAZOLE 20 MG CAPSULE PO SCH (08:29)
[2018-08-09] MEDS: LORazepam 2 MG TABLET PO PRN ×3 (08:30→18:01)
[2018-08-09] MEDS: CloZAPine 100 MG TABLET PO SCH ×2 (08:30→17:28)
[2018-08-09] MEDS: DOCUSATE SODIUM 100 MG CAPSULE PO SCH ×2 (08:30→17:28)
[2018-08-09 09:48] VITALS: BP 115/74
[2018-08-09] MEDS: MAGNESIUM HYDROXIDE SUSPENSION 30 ML UDCUP PO PRN (12:47)
[2018-08-09] MEDS: HALOPERIDOL 5 MG TABLET PO PRN (14:43)
[2018-08-09 16:11] VITALS: BP 133/76
[2018-08-09] MEDS: HALOPERIDOL 10 MG TABLET PO SCH (21:22)
[2018-08-09] MEDS: ZOLPIDEM TARTRATE 10 MG TABLET PO PRN (21:22)
[2018-08-09] MEDS ORDERED: MAGNESIUM CITRATE 300 ML ORAL SOLUTION PO ONE (22:15)
[2018-08-10 00:11] VITALS: BP 107/68
[2018-08-10] MEDS: OMEPRAZOLE 20 MG CAPSULE PO SCH (08:02)
[2018-08-10] MEDS: DOCUSATE SODIUM 100 MG CAPSULE PO SCH ×2 (08:02→16:14)
[2018-08-10] MEDS: CloZAPine 100 MG TABLET PO SCH ×2 (08:02→16:14)
[2018-08-10] MEDS: LORazepam 2 MG TABLET PO PRN ×2 (08:03→18:21)
[2018-08-10 08:30] VITALS: BP 143/71
[2018-08-10] MEDS ORDERED: MAGNESIUM CITRATE 300 ML ORAL SOLUTION PO ONE (09:00)
[2018-08-10 16:13] VITALS: BP 118/69
[2018-08-10] MEDS: ACETAMINOPHEN 325 MG TABLET PO PRN (17:21)
[2018-08-10] MEDS: MAG HYDROX/AL HYDROX/SIMETH ES 30 ML SUSPENSION UDCUP PO PRN (17:28)
[2018-08-10] MEDS: HALOPERIDOL 10 MG TABLET PO SCH (20:35)
[2018-08-10] MEDS: ZOLPIDEM TARTRATE 10 MG TABLET PO PRN (21:10)
[2018-08-11 01:28] VITALS: BP 127/69
[2018-08-11] MEDS: DOCUSATE SODIUM 100 MG CAPSULE PO SCH ×2 (08:08→16:06)
[2018-08-11] MEDS: CloZAPine 100 MG TABLET PO SCH ×2 (08:08→16:06)
[2018-08-11] MEDS: OMEPRAZOLE 20 MG CAPSULE PO SCH (08:09)
[2018-08-11] MEDS: LORazepam 2 MG TABLET PO PRN ×2 (08:09→16:06)
[2018-08-11 08:21] VITALS: BP 118/67
[2018-08-11 16:33] VITALS: BP 127/80
[2018-08-11] MEDS: ACETAMINOPHEN 325 MG TABLET PO PRN (17:30)
[2018-08-11] MEDS: MAG HYDROX/AL HYDROX/SIMETH ES 30 ML SUSPENSION UDCUP PO PRN (18:47)
[2018-08-11] MEDS: HALOPERIDOL 10 MG TABLET PO SCH (20:43)
[2018-08-11] MEDS: ZOLPIDEM TARTRATE 10 MG TABLET PO PRN (20:43)
[2018-08-11] MEDS: IBUPROFEN 600 MG TABLET PO PRN (20:46)
[2018-08-12 05:51] VITALS: BP 129/73
[2018-08-12] MEDS: CloZAPine 100 MG TABLET PO SCH ×2 (08:11→16:34)
[2018-08-12] MEDS: OMEPRAZOLE 20 MG CAPSULE PO SCH (08:11)
[2018-08-12] MEDS: DOCUSATE SODIUM 100 MG CAPSULE PO SCH ×2 (08:11→16:34)
[2018-08-12 08:24] VITALS: BP 128/81
[2018-08-12] MEDS: LORazepam 2 MG TABLET PO PRN ×2 (08:54→16:05)
[2018-08-12 16:12] VITALS: BP 137/93
[2018-08-12] MEDS: HALOPERIDOL 10 MG TABLET PO SCH (20:05)
[2018-08-12] MEDS: ZOLPIDEM TARTRATE 10 MG TABLET PO PRN (21:05)
[2018-08-13 00:26] VITALS: BP 122/78
[2018-08-13 08:06] VITALS: BP 109/68
[2018-08-13] MEDS: ACETAMINOPHEN 325 MG TABLET PO PRN (08:06)
[2018-08-13] MEDS: DOCUSATE SODIUM 100 MG CAPSULE PO SCH ×2 (08:06→17:27)
[2018-08-13] MEDS: OMEPRAZOLE 20 MG CAPSULE PO SCH (08:07)
[2018-08-13] MEDS: CloZAPine 100 MG TABLET PO SCH ×2 (08:07→17:26)
[2018-08-13] MEDS: HALOPERIDOL 5 MG TABLET PO PRN (13:05)
[2018-08-13 16:22] VITALS: BP 133/76
[2018-08-13] MEDS: LORazepam 2 MG TABLET PO PRN (17:27)
[2018-08-13] MEDS: ZOLPIDEM TARTRATE 10 MG TABLET PO PRN (20:58)
[2018-08-13] MEDS: HALOPERIDOL 10 MG TABLET PO SCH (20:58)
[2018-08-14 05:23] VITALS: BP 125/77
[2018-08-14 07:45] LABS: BASOPHILS % (AUTO) 0.7 % (0.0-2.0); EOSINOPHILS % (AUTO) 1.1 % (1.0-6.0); HEMATOCRIT 35.8 % (36-46); HEMOGLOBIN 12.1 g/dL (12.0-16.0); LYMPHOCYTES # (AUTO) 2.4 K/uL (1.0-4.8); MEAN CORPUSCULAR HEMOGLOBIN 29.5 pg (26.0-34.0); MEAN CORPUSCULAR HGB CONC 33.7 G/dL (31.0-37.0); MEAN CORPUSCULAR VOLUME 88 fL (80-100); MONOCYTES # (AUTO) 0.7 K/uL (0.1-1.0); NEUTROPHILS # (AUTO) 3.2 K/uL (1.8-7.7); NEUTROPHILS % (AUTO) 50.2 % (40.0-70.0); PLATELET COUNT (AUTO) 269 K/uL (150-450); RED BLOOD CELL COUNT(AUTO) 4.09 MIL/uL (4.00-5.20); RED CELL DISTRIBUTION WIDTH 13.2 % (11.5-14.5)
[2018-08-14 08:14] VITALS: BP 130/79
[2018-08-14] MEDS: DOCUSATE SODIUM 100 MG CAPSULE PO SCH ×2 (08:45→16:34)
[2018-08-14] MEDS: OMEPRAZOLE 20 MG CAPSULE PO SCH (08:45)
[2018-08-14] MEDS: CloZAPine 100 MG TABLET PO SCH ×2 (08:46→16:34)
[2018-08-14] MEDS: LORazepam 2 MG TABLET PO PRN (10:24)
[2018-08-14] MEDS: HALOPERIDOL 5 MG TABLET PO PRN (10:24)
[2018-08-14] MEDS ORDERED: HALO10TA3 PO (13:02)
[2018-08-14 16:16] VITALS: BP 131/89
[2018-08-14] MEDS ORDERED: HALOPERIDOL 10 MG TABLET PO SCH (21:00)
== END 2018-08-14 17:45 | disposition home or self-care (01) | DRG 885 ==
LOC: B3A 17:47
PROVIDERS: ADMIT Psychiatry & Neurology Psychiatry; ATTEND Psychiatry & Neurology Psychiatry
DX: F20.0 Paranoid schizophrenia (principal); K21.9 Gastro-esophageal reflux disease without esophagitis; K59.00 Constipation, unspecified; F41.9 Anxiety disorder, unspecified; G47.00 Insomnia, unspecified; R51 Headache
CPT/HCPCS: 80159; 83036; 84439; 84443; 87081

== ENCOUNTER 2018-10-04 13:42 | Inpatient (IN) | payer MEDICARE, MEDICAID ==
[~2018-10-04] VITALS: Ht 167.6 cm; Wt 80.7 kg
[~2018-10-04 13:42] MED LIST changes: -BENZ2TAB10 PO; +HALO10TA3 PO
[2018-10-04] MEDS ORDERED: OMEP10 PO (13:59)
[2018-10-04 15:22] LABS: BASOPHILS % (AUTO) 0.6 % (0.0-2.0); EOSINOPHILS % (AUTO) 0.2 % (1.0-6.0); HEMATOCRIT 35.7 % (36-46); HEMOGLOBIN 12.1 g/dL (12.0-16.0); LYMPHOCYTES # (AUTO) 2.1 K/uL (1.0-4.8); LYMPHOCYTES % (AUTO) 36.8 % (22.0-44.0); MEAN CORPUSCULAR HEMOGLOBIN 28.9 pg (26.0-34.0); MEAN CORPUSCULAR HGB CONC 33.9 G/dL (31.0-37.0); MEAN CORPUSCULAR VOLUME 86 fL (80-100); MONOCYTES # (AUTO) 0.5 K/uL (0.1-1.0); MONOCYTES % (AUTO) 8.8 % (2.0-9.0); NEUTROPHILS % (AUTO) 53.6 % (40.0-70.0); PLATELET COUNT (AUTO) 276 K/uL (150-450); RED BLOOD CELL COUNT(AUTO) 4.17 MIL/uL (4.00-5.20); RED CELL DISTRIBUTION WIDTH 13.1 % (11.5-14.5)
[2018-10-04 15:35] LABS: AMPHET/METH SCREEN,URINE NEGATIVE (NEGATIVE); BARBITURATE SCREEN, URINE NEGATIVE (NEGATIVE); BENZODIAZEPINES SCREEN,URINE NEGATIVE (NEGATIVE); CANNABINOID SCREEN,URINE NEGATIVE (NEGATIVE); COCAINE SCREEN,URINE NEGATIVE (NEGATIVE); METHADONE SCREEN, URINE NEGATIVE (NEGATIVE); OPIATE SCREEN,URINE NEGATIVE (NEGATIVE)
[2018-10-04 15:38] LABS: ANION GAP 8 mmol/L (8-16); CARBON DIOXIDE 25 mmol/L (22-29); CHLORIDE 106 mmol/L (98-107); CREATININE 1.01 mg/dL (0.60-1.30); GLOMERULAR FILTR. RATE CALC > 60 mL/min (>60); GLUCOSE,RANDOM 116 mg/dL (70-110); POTASSIUM 4.2 mmol/L (3.5-5.1); SODIUM SERUM 139 mmol/L (136-145); UREA NITROGEN, BLOOD 18 mg/dL (7-18)
[2018-10-04 15:39] LABS: PHENCYCLIDINE SCREEN,URINE NEGATIVE (NEGATIVE)
[2018-10-04 15:44] LABS: ALANINE AMINOTRANSFERASE 22 U/L (12-78); ALBUMIN 4.1 g/dL (3.4-5.0); ALKALINE PHOSPHATASE 60 U/L (46-116); ASPARTATE AMINOTRANSFERASE 14 U/L (15-37); BILIRUBIN,TOTAL 0.2 mg/dL (0.1-1.0); TOTAL PROTEIN, SERUM 7.6 g/dL (6.4-8.2)
[2018-10-04] MEDS ORDERED: LORazepam 2 MG TABLET PO ONE (16:15)
[2018-10-04 16:55] LABS: APPEARANCE,URINE CLOUDY (CLEAR); BILIRUBIN,URINE NEGATIVE (NEGATIVE); GLUCOSE, URINE (UA) NEGATIVE (NEGATIVE); KETONES,URINE TRACE mg/dL (NEGATIVE); LEUKOCYTE ESTERASE ,URINE NEGATIVE (NEGATIVE); NITRATE,URINE NEGATIVE (NEGATIVE); OCCULT BLOOD,URINE NEGATIVE (NEGATIVE); PROTEIN,URINE TRACE (NEGATIVE)
[2018-10-04] MEDS ORDERED: LORazepam 2 MG TABLET PO PRN (17:00)
[2018-10-04 17:08] LABS: BACTERIA,URINE Rare /HPF (None Seen); CALCIUM OXALATE CRYSTALS,UR Moderate /LPF (None Seen); RBC,URINE 0-2 /HPF (0-2); SQUAMOUS EPITHELIAL CELL,UR Few /LPF (None Seen); WBC,URINE 0-2 /HPF (0-5)
[2018-10-04 19:25] VITALS: BP 127/61
[2018-10-04] MEDS ORDERED: ONDANSETRON HCL 4 MG TABLET PO PRN (20:00)
[2018-10-04] MEDS ORDERED: ACETAMINOPHEN 325 MG TABLET PO PRN (20:00)
[2018-10-04] MEDS ORDERED: CloNIDine HCL 0.1 MG TABLET PO PRN (20:00)
[2018-10-04] MEDS ORDERED: MAGNESIUM HYDROXIDE SUSPENSION 30 ML UDCUP PO PRN (20:00)
[2018-10-04] MEDS ORDERED: BENZOCAINE/MENTHOL LOZENGE MM PRN (20:00)
[2018-10-04] MEDS ORDERED: ALBUTEROL SULFATE HFA 90 MCG/PUFF 8 GM INHALER IH PRN (20:00)
[2018-10-04] MEDS ORDERED: IBUPROFEN 600 MG TABLET PO PRN (20:00)
[2018-10-04] MEDS ORDERED: PETROLATUM,WHITE 28 GM JELLY TP PRN (20:00)
[2018-10-04] MEDS ORDERED: LOPERAMIDE HCL 2 MG CAPSULE PO PRN (20:00)
[2018-10-04] MEDS ORDERED: BACITRACIN 28.4 GM OINTMENT TP PRN (20:00)
[2018-10-04] MEDS: HALOPERIDOL 5 MG TABLET PO PRN (20:36)
[2018-10-04] MEDS: ZOLPIDEM TARTRATE 10 MG TABLET PO PRN (21:29)
[2018-10-05 01:30] VITALS: BP 104/64
[2018-10-05] MEDS: OMEPRAZOLE 20 MG CAPSULE PO SCH (08:09)
[2018-10-05] MEDS: DOCUSATE SODIUM 100 MG CAPSULE PO SCH (08:09)
[2018-10-05 08:42] VITALS: BP 115/68
[2018-10-05] MEDS: POLYETHYLENE GLYCOL 3350 17 GM PACKET PO SCH (11:41)
[2018-10-05] MEDS: LORazepam 0.5 MG TABLET PO SCH (16:07)
[2018-10-05] MEDS: CloZAPine 100 MG TABLET PO SCH (16:07)
[2018-10-05 16:15] VITALS: BP 119/74
[2018-10-05] MEDS: DOCUSATE SODIUM 250 MG CAPSULE PO SCH (20:24)
[2018-10-05] MEDS: HALOPERIDOL 5 MG TABLET PO SCH (20:25)
[2018-10-05] MEDS: BENZTROPINE MESYLATE 2 MG TABLET PO SCH (21:04)
[2018-10-06 01:54] VITALS: BP 105/66
[2018-10-06 08:13] VITALS: BP 117/68
[2018-10-06] MEDS: POLYETHYLENE GLYCOL 3350 17 GM PACKET PO SCH (08:26)
[2018-10-06] MEDS: DOCUSATE SODIUM 100 MG CAPSULE PO SCH (08:26)
[2018-10-06] MEDS: OMEPRAZOLE 20 MG CAPSULE PO SCH (08:27)
[2018-10-06] MEDS: CloZAPine 100 MG TABLET PO SCH ×2 (08:27→17:05)
[2018-10-06] MEDS: LORazepam 0.5 MG TABLET PO SCH ×2 (08:27→16:26)
[2018-10-06] MEDS: HALOPERIDOL 5 MG TABLET PO PRN ×2 (10:15→16:26)
[2018-10-06 16:21] VITALS: BP 120/66
[2018-10-06] MEDS: BENZTROPINE MESYLATE 2 MG TABLET PO SCH (20:04)
[2018-10-06] MEDS: DOCUSATE SODIUM 250 MG CAPSULE PO SCH (20:04)
[2018-10-06] MEDS: HALOPERIDOL 5 MG TABLET PO SCH (20:05)
[2018-10-06] MEDS: ZOLPIDEM TARTRATE 10 MG TABLET PO PRN (21:20)
[2018-10-07 00:07] VITALS: BP 118/72
[2018-10-07] MEDS: MAG HYDROX/AL HYDROX/SIMETH ES 30 ML SUSPENSION UDCUP PO PRN ×2 (00:24→13:51)
[2018-10-07] MEDS: LORazepam 0.5 MG TABLET PO SCH ×2 (08:09→16:53)
[2018-10-07] MEDS: DOCUSATE SODIUM 100 MG CAPSULE PO SCH (08:09)
[2018-10-07] MEDS: CloZAPine 100 MG TABLET PO SCH ×2 (08:09→16:53)
[2018-10-07] MEDS: POLYETHYLENE GLYCOL 3350 17 GM PACKET PO SCH (08:09)
[2018-10-07] MEDS: OMEPRAZOLE 20 MG CAPSULE PO SCH (08:09)
[2018-10-07 08:13] VITALS: BP 119/78
[2018-10-07 16:13] VITALS: BP 120/73
[2018-10-07] MEDS: BENZTROPINE MESYLATE 2 MG TABLET PO SCH (20:22)
[2018-10-07] MEDS: ZOLPIDEM TARTRATE 10 MG TABLET PO PRN (20:24)
[2018-10-07] MEDS: HALOPERIDOL 5 MG TABLET PO SCH (20:24)
[2018-10-07] MEDS: DOCUSATE SODIUM 250 MG CAPSULE PO SCH (22:08)
[2018-10-08 04:27] VITALS: BP 127/91
[2018-10-08 07:21] LABS: BASOPHILS % (AUTO) 0.8 % (0.0-2.0); EOSINOPHILS % (AUTO) 1.1 % (1.0-6.0); HEMATOCRIT 33.8 % (36-46); HEMOGLOBIN 11.3 g/dL (12.0-16.0); LYMPHOCYTES # (AUTO) 2.9 K/uL (1.0-4.8); LYMPHOCYTES % (AUTO) 43.6 % (22.0-44.0); MEAN CORPUSCULAR HEMOGLOBIN 29.2 pg (26.0-34.0); MEAN CORPUSCULAR HGB CONC 33.5 G/dL (31.0-37.0); MEAN CORPUSCULAR VOLUME 87 fL (80-100); MONOCYTES # (AUTO) 0.7 K/uL (0.1-1.0); MONOCYTES % (AUTO) 10.1 % (2.0-9.0); NEUTROPHILS % (AUTO) 44.4 % (40.0-70.0); PLATELET COUNT (AUTO) 270 K/uL (150-450); RED BLOOD CELL COUNT(AUTO) 3.89 MIL/uL (4.00-5.20); RED CELL DISTRIBUTION WIDTH 13.7 % (11.5-14.5)
[2018-10-08 08:09] VITALS: BP 115/69
[2018-10-08] MEDS: CloZAPine 100 MG TABLET PO SCH ×2 (08:29→16:08)
[2018-10-08] MEDS: LORazepam 0.5 MG TABLET PO SCH ×2 (08:29→16:08)
[2018-10-08] MEDS: POLYETHYLENE GLYCOL 3350 17 GM PACKET PO SCH (08:32)
[2018-10-08] MEDS: OMEPRAZOLE 20 MG CAPSULE PO SCH (08:32)
[2018-10-08] MEDS ORDERED: POLYETHYLENE GLYCOL 3350 17 GM PACKET PO SCH (09:00)
[2018-10-08 16:19] VITALS: BP 136/73
[2018-10-08] MEDS: DOCUSATE SODIUM 250 MG CAPSULE PO SCH (20:16)
[2018-10-08] MEDS: BENZTROPINE MESYLATE 2 MG TABLET PO SCH (20:16)
[2018-10-08] MEDS: ZOLPIDEM TARTRATE 10 MG TABLET PO PRN (20:20)
[2018-10-08] MEDS: HALOPERIDOL 5 MG TABLET PO SCH (20:21)
[2018-10-09 00:59] VITALS: BP 103/73
[2018-10-09] MEDS: OMEPRAZOLE 20 MG CAPSULE PO SCH (08:04)
[2018-10-09] MEDS: LORazepam 0.5 MG TABLET PO SCH ×2 (08:04→17:07)
[2018-10-09] MEDS: POLYETHYLENE GLYCOL 3350 17 GM PACKET PO SCH (08:05)
[2018-10-09] MEDS: CloZAPine 100 MG TABLET PO SCH ×2 (08:05→17:08)
[2018-10-09 08:08] VITALS: BP 97/68
[2018-10-09 16:07] VITALS: BP 122/78
[2018-10-09] MEDS: HALOPERIDOL 5 MG TABLET PO SCH (20:33)
[2018-10-09] MEDS: DOCUSATE SODIUM 250 MG CAPSULE PO SCH (20:33)
[2018-10-09] MEDS: BENZTROPINE MESYLATE 2 MG TABLET PO SCH (20:55)
[2018-10-10 03:15] VITALS: BP 109/69
[2018-10-10 08:12] VITALS: BP 103/70
[2018-10-10] MEDS: LORazepam 0.5 MG TABLET PO SCH ×2 (08:32→16:35)
[2018-10-10] MEDS: OMEPRAZOLE 20 MG CAPSULE PO SCH (08:32)
[2018-10-10] MEDS: CloZAPine 100 MG TABLET PO SCH ×2 (08:33→16:35)
[2018-10-10] MEDS: POLYETHYLENE GLYCOL 3350 17 GM PACKET PO SCH (08:33)
[2018-10-10 16:06] VITALS: BP 140/90
[2018-10-10] MEDS: DOCUSATE SODIUM 250 MG CAPSULE PO SCH (20:36)
[2018-10-10] MEDS: BENZTROPINE MESYLATE 2 MG TABLET PO SCH (20:37)
[2018-10-10] MEDS: HALOPERIDOL 5 MG TABLET PO SCH (20:37)
[2018-10-10] MEDS: ZOLPIDEM TARTRATE 10 MG TABLET PO PRN (20:37)
[2018-10-11 04:34] VITALS: BP 122/68
[2018-10-11] MEDS: CloZAPine 100 MG TABLET PO SCH (08:03)
[2018-10-11] MEDS: LORazepam 0.5 MG TABLET PO SCH (08:03)
[2018-10-11] MEDS: POLYETHYLENE GLYCOL 3350 17 GM PACKET PO SCH (08:03)
[2018-10-11] MEDS: OMEPRAZOLE 20 MG CAPSULE PO SCH (08:04)
[2018-10-11 08:16] VITALS: BP 118/65
[2018-10-11] MEDS ORDERED: LORA0.5T2 PO (10:37)
[2018-10-11] MEDS ORDERED: BENZ2TAB10 PO (10:37)
[2018-10-11] MEDS ORDERED: HALO5TAB2 PO (10:37)
[2018-10-11] MEDS ORDERED: POLY17PO PO (10:37)
== END 2018-10-11 12:20 | disposition home or self-care (01) | DRG 885 ==
LOC: EMS 13:47 → B3A 18:01 → 5N 18:19 → UNDOADMIN 18:19 → 5N 19:43 → B3A 19:43
PROVIDERS: ADMIT Psychiatry & Neurology Psychiatry; ATTEND Psychiatry & Neurology Psychiatry
DX: F20.0 Paranoid schizophrenia (principal); R45.851 Suicidal ideations; K59.00 Constipation, unspecified; K21.9 Gastro-esophageal reflux disease without esophagitis; G47.00 Insomnia, unspecified; R51 Headache
CPT/HCPCS: G0480

== ENCOUNTER 2019-01-24 12:28 | Inpatient (IN) | payer MEDICARE, MEDICAID ==
[~2019-01-24] VITALS: Ht 167.6 cm; Wt 72.6 kg
[~2019-01-24 12:28] MED LIST changes: +BENZ2TAB10 PO; -HALO10TA3 PO; +HALO5TAB2 PO; +LORA0.5T2 PO; +POLY17PO PO
[2019-01-24] MEDS ORDERED: BENZ1TAB10 PO (12:34)
[2019-01-24] MEDS ORDERED: DOCU250C91 PO (12:34)
[2019-01-24 12:39] VITALS: BP 103/65
[2019-01-24] MEDS ORDERED: HALOPERIDOL 5 MG TABLET PO PRN (13:00)
[2019-01-24 14:00] VITALS: BP 127/77
[2019-01-24] MEDS ORDERED: LOPERAMIDE HCL 2 MG CAPSULE PO PRN (14:15)
[2019-01-24] MEDS ORDERED: MAG HYDROX/AL HYDROX/SIMETH ES 30 ML SUSPENSION UDCUP PO PRN (14:15)
[2019-01-24] MEDS ORDERED: BENZOCAINE/MENTHOL LOZENGE MM PRN (14:15)
[2019-01-24] MEDS ORDERED: ALBUTEROL SULFATE HFA 90 MCG/PUFF 8 GM INHALER IH PRN (14:15)
[2019-01-24] MEDS ORDERED: ONDANSETRON HCL 4 MG TABLET PO PRN (14:15)
[2019-01-24] MEDS ORDERED: BACITRACIN 28.4 GM OINTMENT TP PRN (14:15)
[2019-01-24] MEDS ORDERED: IBUPROFEN 600 MG TABLET PO PRN (14:15)
[2019-01-24] MEDS ORDERED: CloNIDine HCL 0.1 MG TABLET PO PRN (14:15)
[2019-01-24] MEDS ORDERED: PETROLATUM,WHITE 28 GM JELLY TP PRN (14:15)
[2019-01-24] MEDS: LORazepam 2 MG TABLET PO PRN (15:26)
[2019-01-24 16:36] VITALS: BP 112/69
[2019-01-24] MEDS: LORazepam 0.5 MG TABLET PO SCH (17:02)
[2019-01-24] MEDS: HALOPERIDOL 5 MG TABLET PO SCH (20:22)
[2019-01-24] MEDS: BENZTROPINE MESYLATE 2 MG TABLET PO SCH (20:22)
[2019-01-25 00:20] VITALS: BP 111/65
[2019-01-25] MEDS: ZOLPIDEM TARTRATE 10 MG TABLET PO PRN ×2 (00:21→21:49)
[2019-01-25] MEDS: MAGNESIUM HYDROXIDE SUSPENSION 30 ML UDCUP PO PRN (07:10)
[2019-01-25] MEDS: LORazepam 0.5 MG TABLET PO SCH ×4 (07:59→20:29)
[2019-01-25] MEDS: OMEPRAZOLE 20 MG CAPSULE PO SCH (07:59)
[2019-01-25] MEDS: BENZTROPINE MESYLATE 1 MG TABLET PO SCH (07:59)
[2019-01-25] MEDS: DOCUSATE SODIUM 100 MG CAPSULE PO SCH (07:59)
[2019-01-25 08:12] VITALS: BP 128/70
[2019-01-25 08:51] LABS: BASOPHILS % (AUTO) 0.6 % (0.0-2.0); HEMATOCRIT 34.2 % (36-46); HEMOGLOBIN 11.1 g/dL (12.0-16.0); LYMPHOCYTES # (AUTO) 2.3 K/uL (1.0-4.8); LYMPHOCYTES % (AUTO) 40.2 % (22.0-44.0); MEAN CORPUSCULAR HEMOGLOBIN 29.5 pg (26.0-34.0); MEAN CORPUSCULAR HGB CONC 32.5 G/dL (31.0-37.0); MEAN CORPUSCULAR VOLUME 91 fL (80-100); MONOCYTES # (AUTO) 0.5 K/uL (0.1-1.0); MONOCYTES % (AUTO) 9.2 % (2.0-9.0); NEUTROPHILS # (AUTO) 2.8 K/uL (1.8-7.7); PLATELET COUNT (AUTO) 273 K/uL (150-450); RED BLOOD CELL COUNT(AUTO) 3.76 MIL/uL (4.00-5.20); RED CELL DISTRIBUTION WIDTH 13.4 % (11.5-14.5)
[2019-01-25 09:17] LABS: HEMOGLOBIN A1C 5.9 % (4.5-6.2)
[2019-01-25 09:37] LABS: ALANINE AMINOTRANSFERASE 11 U/L (12-78); ALBUMIN 3.6 g/dL (3.4-5.0); ALKALINE PHOSPHATASE 62 U/L (46-116); ANION GAP 9 mmol/L (8-16); ASPARTATE AMINOTRANSFERASE 17 U/L (15-37); BILIRUBIN,TOTAL 0.2 mg/dL (0.1-1.0); CALCIUM, TOTAL 8.8 mg/dL (8.8-10.5); CARBON DIOXIDE 24 mmol/L (22-29); CHLORIDE 107 mmol/L (98-107); CHOL/HDL RATIO 2.7 (3.9-5.7); CHOLESTEROL 141 mg/dL (131-200); CREATININE 0.88 mg/dL (0.60-1.30); FREE T4 (FREE THYROXINE) 0.98 ng/dL (0.76-1.46); GLOMERULAR FILTR. RATE CALC > 60 mL/min (>60); GLUCOSE,RANDOM 96 mg/dL (70-110); HCG,QUANTITATIVE < 1 mIU/mL (0-6); HDL CHOLESTEROL 53 mg/dL (40-60); LDL CHOL (CALC.) 49 mg/dL (0-130); SODIUM SERUM 140 mmol/L (136-145); THYROID STIMULATING HORMONE 2.49 uIU/mL (0.36-3.74); TOTAL PROTEIN, SERUM 6.8 g/dL (6.4-8.2); TRIGLYCERIDES 195 mg/dL (15-150)
[2019-01-25 09:59] LABS: UREA NITROGEN, BLOOD 15 mg/dL (7-18)
[2019-01-25] MEDS: LORazepam 2 MG TABLET PO PRN (12:26)
[2019-01-25 16:17] VITALS: BP 122/70
[2019-01-25] MEDS: HALOPERIDOL 5 MG TABLET PO SCH (20:10)
[2019-01-25] MEDS: BENZTROPINE MESYLATE 2 MG TABLET PO SCH (20:22)
[2019-01-26 03:00] VITALS: BP 100/74
[2019-01-26] MEDS: ACETAMINOPHEN 325 MG TABLET PO PRN (03:09)
[2019-01-26 08:12] VITALS: BP 117/69
[2019-01-26] MEDS: CloZAPine 100 MG TABLET PO SCH ×2 (08:21→16:30)
[2019-01-26] MEDS: LORazepam 0.5 MG TABLET PO SCH ×2 (08:21→16:30)
[2019-01-26] MEDS: BENZTROPINE MESYLATE 1 MG TABLET PO SCH (08:22)
[2019-01-26] MEDS: DOCUSATE SODIUM 100 MG CAPSULE PO SCH (08:22)
[2019-01-26] MEDS: OMEPRAZOLE 20 MG CAPSULE PO SCH (08:22)
[2019-01-26] MEDS: MAGNESIUM HYDROXIDE SUSPENSION 30 ML UDCUP PO PRN (12:01)
[2019-01-26] MEDS: LORazepam 2 MG TABLET PO PRN (12:02)
[2019-01-26 16:00] VITALS: BP 112/61
[2019-01-26] MEDS: DOCUSATE SODIUM 100 MG/10 ML LIQUID UDCUP PO SCH (17:14)
[2019-01-26] MEDS: BENZTROPINE MESYLATE 2 MG TABLET PO SCH (20:11)
[2019-01-26] MEDS: HALOPERIDOL 5 MG TABLET PO SCH (20:11)
[2019-01-27] MEDS: ACETAMINOPHEN 325 MG TABLET PO PRN (03:34)
[2019-01-27 03:40] VITALS: BP 115/67
[2019-01-27] MEDS: LORazepam 0.5 MG TABLET PO SCH ×2 (08:12→16:13)
[2019-01-27] MEDS: BENZTROPINE MESYLATE 1 MG TABLET PO SCH (08:12)
[2019-01-27] MEDS: OMEPRAZOLE 20 MG CAPSULE PO SCH (08:12)
[2019-01-27] MEDS: DOCUSATE SODIUM 100 MG CAPSULE PO SCH (08:12)
[2019-01-27] MEDS: CloZAPine 100 MG TABLET PO SCH ×2 (08:13→16:14)
[2019-01-27] MEDS: DOCUSATE SODIUM 100 MG/10 ML LIQUID UDCUP PO SCH ×2 (08:16→16:16)
[2019-01-27 08:23] VITALS: BP 116/67
[2019-01-27] MEDS: LORazepam 2 MG TABLET PO PRN (11:57)
[2019-01-27 16:05] VITALS: BP 100/59
[2019-01-27] MEDS: HALOPERIDOL 5 MG TABLET PO SCH (20:06)
[2019-01-27] MEDS: BENZTROPINE MESYLATE 2 MG TABLET PO SCH (20:06)
[2019-01-28] VITALS: BP 113/60
[2019-01-28] MEDS: ACETAMINOPHEN 325 MG TABLET PO PRN (05:50)
[2019-01-28 08:14] VITALS: BP 109/64
[2019-01-28] MEDS: DOCUSATE SODIUM 100 MG CAPSULE PO SCH (08:34)
[2019-01-28] MEDS: BENZTROPINE MESYLATE 1 MG TABLET PO SCH (08:35)
[2019-01-28] MEDS: CloZAPine 100 MG TABLET PO SCH ×2 (08:35→16:43)
[2019-01-28] MEDS: LORazepam 0.5 MG TABLET PO SCH ×2 (08:36→16:44)
[2019-01-28] MEDS: OMEPRAZOLE 20 MG CAPSULE PO SCH (08:36)
[2019-01-28] MEDS: DOCUSATE SODIUM 100 MG/10 ML LIQUID UDCUP PO SCH ×2 (08:37→16:45)
[2019-01-28] MEDS: LORazepam 2 MG TABLET PO PRN (14:01)
[2019-01-28 16:09] VITALS: BP 112/75
[2019-01-28] MEDS: HALOPERIDOL 5 MG TABLET PO SCH (21:00)
[2019-01-28] MEDS: BENZTROPINE MESYLATE 2 MG TABLET PO SCH (21:00)
[2019-01-29 04:20] VITALS: BP 108/62
[2019-01-29 08:24] VITALS: BP 116/67
[2019-01-29] MEDS: LORazepam 0.5 MG TABLET PO SCH ×2 (09:52→16:26)
[2019-01-29] MEDS: CloZAPine 100 MG TABLET PO SCH ×2 (09:54→16:27)
[2019-01-29] MEDS: BENZTROPINE MESYLATE 1 MG TABLET PO SCH (09:56)
[2019-01-29] MEDS: DOCUSATE SODIUM 100 MG CAPSULE PO SCH (09:56)
[2019-01-29] MEDS: OMEPRAZOLE 20 MG CAPSULE PO SCH (09:56)
[2019-01-29] MEDS: DOCUSATE SODIUM 100 MG/10 ML LIQUID UDCUP PO SCH ×2 (10:07→16:28)
[2019-01-29 16:09] VITALS: BP 110/82
== END 2019-01-29 18:20 | disposition home or self-care (01) | DRG 885 ==
LOC: B3A 13:07
PROVIDERS: ADMIT Psychiatry & Neurology Psychiatry; ATTEND Psychiatry & Neurology Psychiatry
DX: F20.9 Schizophrenia, unspecified (principal); R45.851 Suicidal ideations; F32.9 Major depressive disorder, single episode, unspecified; F41.0 Panic disorder [episodic paroxysmal anxiety]; G47.00 Insomnia, unspecified; K21.9 Gastro-esophageal reflux disease without esophagitis; K59.00 Constipation, unspecified; Z79.899 Other long term (current) drug therapy; R51 Headache
CPT/HCPCS: 83036; 84439; 84443

== ENCOUNTER 2019-01-30 15:56 | Inpatient (IN) | payer MEDICARE, MEDICAID ==
[~2019-01-30] VITALS: Ht 167.6 cm; Wt 73.7 kg
[~2019-01-30 15:56] MED LIST changes: +BENZ1TAB10 PO; -POLY17PO PO
[2019-01-30 18:02] VITALS: BP 127/77
[2019-01-30 19:02] VITALS: BP 133/82
[2019-01-30] MEDS: DOCUSATE SODIUM 250 MG CAPSULE PO SCH (20:45)
[2019-01-30] MEDS: IBUPROFEN 600 MG TABLET PO PRN (20:45)
[2019-01-30] MEDS: HALOPERIDOL 5 MG TABLET PO SCH (20:45)
[2019-01-30] MEDS: ZOLPIDEM TARTRATE 10 MG TABLET PO PRN (20:46)
[2019-01-30] MEDS: LORazepam 2 MG TABLET PO PRN (20:46)
[2019-01-31 05:50] VITALS: BP 122/78
[2019-01-31] MEDS: ACETAMINOPHEN 325 MG TABLET PO PRN ×2 (05:50→20:53)
[2019-01-31 08:25] LABS: BASOPHILS % (AUTO) 0.8 % (0.0-2.0); EOSINOPHILS % (AUTO) 1.2 % (1.0-6.0); HEMATOCRIT 38.7 % (36-46); HEMOGLOBIN 12.9 g/dL (12.0-16.0); LYMPHOCYTES # (AUTO) 2.4 K/uL (1.0-4.8); LYMPHOCYTES % (AUTO) 39.3 % (22.0-44.0); MEAN CORPUSCULAR HGB CONC 33.3 G/dL (31.0-37.0); MEAN CORPUSCULAR VOLUME 90 fL (80-100); MONOCYTES # (AUTO) 0.5 K/uL (0.1-1.0); MONOCYTES % (AUTO) 8.5 % (2.0-9.0); NEUTROPHILS # (AUTO) 3.1 K/uL (1.8-7.7); NEUTROPHILS % (AUTO) 50.2 % (40.0-70.0); PLATELET COUNT (AUTO) 306 K/uL (150-450); RED CELL DISTRIBUTION WIDTH 13.4 % (11.5-14.5)
[2019-01-31 08:26] VITALS: BP 102/65
[2019-01-31] MEDS: OMEPRAZOLE 20 MG CAPSULE PO SCH (08:45)
[2019-01-31] MEDS: CloZAPine 100 MG TABLET PO SCH ×2 (08:45→16:24)
[2019-01-31] MEDS: DOCUSATE SODIUM 250 MG CAPSULE PO SCH ×2 (08:45→16:24)
[2019-01-31 08:51] LABS: HEMOGLOBIN A1C 5.8 % (4.5-6.2)
[2019-01-31 08:56] LABS: ALANINE AMINOTRANSFERASE 16 U/L (12-78); ALKALINE PHOSPHATASE 62 U/L (46-116); ANION GAP 6 mmol/L (8-16); ASPARTATE AMINOTRANSFERASE 15 U/L (15-37); BILIRUBIN,TOTAL 0.4 mg/dL (0.1-1.0); CALCIUM, TOTAL 9.6 mg/dL (8.8-10.5); CARBON DIOXIDE 28 mmol/L (22-29); CHLORIDE 104 mmol/L (98-107); CHOL/HDL RATIO 3.4 (3.9-5.7); CHOLESTEROL 198 mg/dL (131-200); CREATININE 0.96 mg/dL (0.60-1.30); FREE T4 (FREE THYROXINE) 0.92 ng/dL (0.76-1.46); GLOMERULAR FILTR. RATE CALC > 60 mL/min (>60); GLUCOSE,RANDOM 89 mg/dL (70-110); HCG,QUANTITATIVE < 1 mIU/mL (0-6); HDL CHOLESTEROL 58 mg/dL (40-60); LDL CHOL (CALC.) 84 mg/dL (0-130); SODIUM SERUM 138 mmol/L (136-145); THYROID STIMULATING HORMONE 1.67 uIU/mL (0.36-3.74); TOTAL PROTEIN, SERUM 7.2 g/dL (6.4-8.2); TRIGLYCERIDES 279 mg/dL (15-150); UREA NITROGEN, BLOOD 15 mg/dL (7-18)
[2019-01-31] MEDS ORDERED: BENZTROPINE MESYLATE 1 MG TABLET PO SCH ×2 (09:00)
[2019-01-31 09:25] VITALS: BP 120/70
[2019-01-31] MEDS: LORazepam 2 MG TABLET PO PRN (09:26)
[2019-01-31] MEDS ORDERED: ONDANSETRON HCL 4 MG TABLET PO PRN (09:30)
[2019-01-31] MEDS ORDERED: CloNIDine HCL 0.1 MG TABLET PO PRN (09:30)
[2019-01-31] MEDS ORDERED: ALBUTEROL SULFATE HFA 90 MCG/PUFF 8 GM INHALER IH PRN (09:30)
[2019-01-31] MEDS ORDERED: LOPERAMIDE HCL 2 MG CAPSULE PO PRN (09:30)
[2019-01-31] MEDS ORDERED: BACITRACIN 28.4 GM OINTMENT TP PRN (09:30)
[2019-01-31] MEDS ORDERED: MAG HYDROX/AL HYDROX/SIMETH ES 30 ML SUSPENSION UDCUP PO PRN (09:30)
[2019-01-31] MEDS ORDERED: PETROLATUM,WHITE 28 GM JELLY TP PRN (09:30)
[2019-01-31] MEDS ORDERED: BENZOCAINE/MENTHOL LOZENGE MM PRN (09:30)
[2019-01-31] MEDS ORDERED: IBUPROFEN 600 MG TABLET PO PRN (09:30)
[2019-01-31 16:06] VITALS: BP 108/70
[2019-01-31] MEDS: HALOPERIDOL 5 MG TABLET PO PRN (17:32)
[2019-01-31] MEDS: HALOPERIDOL 5 MG TABLET PO SCH (20:08)
[2019-01-31] MEDS: BENZTROPINE MESYLATE 2 MG TABLET PO SCH (20:09)
[2019-01-31 20:53] VITALS: BP 110/65
[2019-02-01 00:34] VITALS: BP 108/62
[2019-02-01] MEDS: OMEPRAZOLE 20 MG CAPSULE PO SCH (08:12)
[2019-02-01] MEDS: CloZAPine 100 MG TABLET PO SCH ×2 (08:12→16:16)
[2019-02-01] MEDS: BENZTROPINE MESYLATE 2 MG TABLET PO SCH ×2 (08:12→20:06)
[2019-02-01] MEDS: DOCUSATE SODIUM 250 MG CAPSULE PO SCH ×2 (08:13→16:16)
[2019-02-01 08:15] VITALS: BP 117/68
[2019-02-01] MEDS: LORazepam 2 MG TABLET PO PRN ×2 (09:07→16:16)
[2019-02-01 16:11] VITALS: BP 114/69
[2019-02-01] MEDS: HALOPERIDOL 5 MG TABLET PO PRN (16:16)
[2019-02-01] MEDS: HALOPERIDOL 5 MG TABLET PO SCH (20:06)
[2019-02-02 06:52] VITALS: BP 116/65
[2019-02-02 08:13] VITALS: BP 118/73
[2019-02-02] MEDS: BENZTROPINE MESYLATE 2 MG TABLET PO SCH ×2 (08:13→20:18)
[2019-02-02] MEDS: OMEPRAZOLE 20 MG CAPSULE PO SCH (08:13)
[2019-02-02] MEDS: DOCUSATE SODIUM 250 MG CAPSULE PO SCH ×2 (08:13→16:24)
[2019-02-02] MEDS: CloZAPine 100 MG TABLET PO SCH ×2 (08:13→16:23)
[2019-02-02] MEDS: LORazepam 2 MG TABLET PO PRN ×2 (08:31→16:24)
[2019-02-02] MEDS: MAGNESIUM HYDROXIDE SUSPENSION 30 ML UDCUP PO PRN (11:54)
[2019-02-02 16:06] VITALS: BP 106/68
[2019-02-02] MEDS: HALOPERIDOL 5 MG TABLET PO PRN (16:24)
[2019-02-02] MEDS: ACETAMINOPHEN 325 MG TABLET PO PRN (17:23)
[2019-02-02] MEDS: HALOPERIDOL 5 MG TABLET PO SCH (20:18)
[2019-02-03 06:35] VITALS: BP 117/70
[2019-02-03] MEDS: MAGNESIUM HYDROXIDE SUSPENSION 30 ML UDCUP PO PRN (08:11)
[2019-02-03 08:14] VITALS: BP 100/67
[2019-02-03] MEDS: CloZAPine 100 MG TABLET PO SCH ×2 (08:29→16:42)
[2019-02-03] MEDS: OMEPRAZOLE 20 MG CAPSULE PO SCH (08:30)
[2019-02-03] MEDS: DOCUSATE SODIUM 250 MG CAPSULE PO SCH ×2 (08:31→16:43)
[2019-02-03] MEDS: BENZTROPINE MESYLATE 2 MG TABLET PO SCH ×2 (08:31→20:33)
[2019-02-03] MEDS: HALOPERIDOL 5 MG TABLET PO PRN (09:46)
[2019-02-03] MEDS ORDERED: MAGNESIUM CITRATE 300 ML ORAL SOLUTION PO ONE (13:30)
[2019-02-03 16:06] VITALS: BP 121/81
[2019-02-03] MEDS: LORazepam 2 MG TABLET PO PRN (16:44)
[2019-02-03] MEDS: HALOPERIDOL 5 MG TABLET PO SCH (20:33)
[2019-02-04 00:05] VITALS: BP 112/68
[2019-02-04] MEDS: OMEPRAZOLE 20 MG CAPSULE PO SCH (08:12)
[2019-02-04] MEDS: CloZAPine 100 MG TABLET PO SCH ×2 (08:12→17:11)
[2019-02-04] MEDS: DOCUSATE SODIUM 250 MG CAPSULE PO SCH ×2 (08:13→17:11)
[2019-02-04] MEDS: BENZTROPINE MESYLATE 2 MG TABLET PO SCH ×2 (08:13→20:18)
[2019-02-04 08:19] VITALS: BP 118/75
[2019-02-04] MEDS: LORazepam 2 MG TABLET PO PRN ×2 (08:52→16:01)
[2019-02-04] MEDS: ACETAMINOPHEN 325 MG TABLET PO PRN (11:40)
[2019-02-04 16:12] VITALS: BP 121/76
[2019-02-04] MEDS: HALOPERIDOL 5 MG TABLET PO SCH (20:18)
[2019-02-05 01:44] VITALS: BP 101/76
[2019-02-05] MEDS: DOCUSATE SODIUM 250 MG CAPSULE PO SCH ×2 (08:16→16:03)
[2019-02-05] MEDS: CloZAPine 100 MG TABLET PO SCH ×2 (08:16→16:03)
[2019-02-05] MEDS: OMEPRAZOLE 20 MG CAPSULE PO SCH (08:16)
[2019-02-05] MEDS: BENZTROPINE MESYLATE 2 MG TABLET PO SCH ×2 (08:17→20:08)
[2019-02-05] MEDS: LORazepam 2 MG TABLET PO PRN ×2 (08:17→17:07)
[2019-02-05 08:33] VITALS: BP 136/73
[2019-02-05] MEDS: HALOPERIDOL 5 MG TABLET PO PRN ×2 (09:39→17:07)
[2019-02-05 16:03] VITALS: BP 139/77
[2019-02-05] MEDS: MAGNESIUM HYDROXIDE SUSPENSION 30 ML UDCUP PO PRN (17:03)
[2019-02-05] MEDS: HALOPERIDOL 10 MG TABLET PO SCH (20:08)
[2019-02-06 02:35] VITALS: BP 108/72
[2019-02-06 08:02] VITALS: BP 104/67
[2019-02-06] MEDS: DOCUSATE SODIUM 250 MG CAPSULE PO SCH ×2 (08:36→16:00)
[2019-02-06] MEDS: OMEPRAZOLE 20 MG CAPSULE PO SCH (08:37)
[2019-02-06] MEDS: BENZTROPINE MESYLATE 2 MG TABLET PO SCH ×2 (08:37→20:03)
[2019-02-06] MEDS: CloZAPine 100 MG TABLET PO SCH ×2 (08:37→16:00)
[2019-02-06 09:05] VITALS: BP 112/74
[2019-02-06] MEDS: LORazepam 2 MG TABLET PO PRN ×3 (09:09→20:03)
[2019-02-06 16:32] VITALS: BP 108/64
[2019-02-06] MEDS: MAGNESIUM HYDROXIDE SUSPENSION 30 ML UDCUP PO PRN (18:03)
[2019-02-06] MEDS: HALOPERIDOL 10 MG TABLET PO SCH (20:03)
[2019-02-07 07:10] VITALS: BP 117/72
[2019-02-07 08:04] VITALS: BP 102/63
[2019-02-07] MEDS: OMEPRAZOLE 20 MG CAPSULE PO SCH (08:07)
[2019-02-07] MEDS: OMEGA-3/DHA/EPA/FISH OIL 1,000 MG CAPSULE PO SCH (08:07)
[2019-02-07] MEDS: DOCUSATE SODIUM 250 MG CAPSULE PO SCH ×2 (08:07→16:29)
[2019-02-07 08:16] LABS: BASOPHILS % (AUTO) 0.7 % (0.0-2.0); EOSINOPHILS % (AUTO) 1.8 % (1.0-6.0); HEMATOCRIT 36.7 % (36-46); LYMPHOCYTES # (AUTO) 2.2 K/uL (1.0-4.8); LYMPHOCYTES % (AUTO) 41.6 % (22.0-44.0); MEAN CORPUSCULAR HEMOGLOBIN 29.5 pg (26.0-34.0); MEAN CORPUSCULAR HGB CONC 32.7 G/dL (31.0-37.0); MEAN CORPUSCULAR VOLUME 90 fL (80-100); MONOCYTES # (AUTO) 0.5 K/uL (0.1-1.0); NEUTROPHILS # (AUTO) 2.5 K/uL (1.8-7.7); NEUTROPHILS % (AUTO) 45.9 % (40.0-70.0); PLATELET COUNT (AUTO) 282 K/uL (150-450); RED BLOOD CELL COUNT(AUTO) 4.07 MIL/uL (4.00-5.20); RED CELL DISTRIBUTION WIDTH 13.7 % (11.5-14.5)
[2019-02-07] MEDS: BENZTROPINE MESYLATE 2 MG TABLET PO SCH ×2 (08:21→20:21)
[2019-02-07] MEDS: CloZAPine 100 MG TABLET PO SCH ×2 (08:22→16:29)
[2019-02-07] MEDS: LACTULOSE 20 GM/30 ML SOLUTION UDCUP PO SCH (10:34)
[2019-02-07] MEDS: LORazepam 2 MG TABLET PO PRN (12:48)
[2019-02-07] MEDS: IBUPROFEN 600 MG TABLET PO PRN (12:55)
[2019-02-07 16:03] VITALS: BP 116/75
[2019-02-07] MEDS: HALOPERIDOL 5 MG TABLET PO PRN (16:29)
[2019-02-07] MEDS: HALOPERIDOL 10 MG TABLET PO SCH (20:22)
[2019-02-08 06:00] VITALS: BP 116/64
[2019-02-08 08:07] VITALS: BP 105/70
[2019-02-08] MEDS: BENZTROPINE MESYLATE 2 MG TABLET PO SCH ×2 (08:21→20:07)
[2019-02-08] MEDS: CloZAPine 100 MG TABLET PO SCH ×2 (08:21→16:02)
[2019-02-08] MEDS: OMEGA-3/DHA/EPA/FISH OIL 1,000 MG CAPSULE PO SCH (08:21)
[2019-02-08] MEDS: DOCUSATE SODIUM 250 MG CAPSULE PO SCH ×2 (08:21→16:02)
[2019-02-08] MEDS: LACTULOSE 20 GM/30 ML SOLUTION UDCUP PO SCH (08:21)
[2019-02-08] MEDS: OMEPRAZOLE 20 MG CAPSULE PO SCH (08:21)
[2019-02-08] MEDS: LORazepam 2 MG TABLET PO PRN ×2 (09:28→17:47)
[2019-02-08 16:00] VITALS: BP 108/73
[2019-02-08] MEDS: HALOPERIDOL 5 MG TABLET PO PRN (17:47)
[2019-02-08] MEDS: HALOPERIDOL 10 MG TABLET PO SCH (20:06)
[2019-02-09 05:23] VITALS: BP 100/62
[2019-02-09] MEDS: BENZTROPINE MESYLATE 2 MG TABLET PO SCH ×2 (08:13→20:17)
[2019-02-09] MEDS: LORazepam 2 MG TABLET PO PRN (08:13)
[2019-02-09] MEDS: DOCUSATE SODIUM 250 MG CAPSULE PO SCH ×2 (08:13→16:15)
[2019-02-09] MEDS: CloZAPine 100 MG TABLET PO SCH ×2 (08:13→16:15)
[2019-02-09] MEDS: LACTULOSE 20 GM/30 ML SOLUTION UDCUP PO SCH (08:13)
[2019-02-09] MEDS: OMEPRAZOLE 20 MG CAPSULE PO SCH (08:13)
[2019-02-09 08:16] VITALS: BP 112/70
[2019-02-09] MEDS: OMEGA-3/DHA/EPA/FISH OIL 1,000 MG CAPSULE PO SCH (08:35)
[2019-02-09] MEDS: HALOPERIDOL 5 MG TABLET PO PRN (10:40)
[2019-02-09 16:05] VITALS: BP 118/79
[2019-02-09] MEDS: HALOPERIDOL 10 MG TABLET PO SCH (20:18)
[2019-02-09] MEDS: ZOLPIDEM TARTRATE 10 MG TABLET PO PRN (23:33)
[2019-02-10 06:00] VITALS: BP 123/74
[2019-02-10 08:08] VITALS: BP 123/71
[2019-02-10] MEDS: BENZTROPINE MESYLATE 2 MG TABLET PO SCH (08:12)
[2019-02-10] MEDS: OMEGA-3/DHA/EPA/FISH OIL 1,000 MG CAPSULE PO SCH (08:12)
[2019-02-10] MEDS: CloZAPine 100 MG TABLET PO SCH ×2 (08:12→16:04)
[2019-02-10] MEDS: LACTULOSE 20 GM/30 ML SOLUTION UDCUP PO SCH (08:12)
[2019-02-10] MEDS: DOCUSATE SODIUM 250 MG CAPSULE PO SCH ×2 (08:12→16:04)
[2019-02-10] MEDS: OMEPRAZOLE 20 MG CAPSULE PO SCH (08:12)
[2019-02-10] MEDS: LORazepam 2 MG TABLET PO PRN (08:26)
[2019-02-10 16:00] VITALS: BP 107/69
== END 2019-02-10 19:18 | disposition home or self-care (01) | DRG 885 ==
LOC: B3A 18:42
PROVIDERS: ADMIT Psychiatry & Neurology Psychiatry; ATTEND Psychiatry & Neurology Psychiatry
DX: F20.0 Paranoid schizophrenia (principal); K59.00 Constipation, unspecified; K21.9 Gastro-esophageal reflux disease without esophagitis; G47.00 Insomnia, unspecified; R51 Headache; F60.0 Paranoid personality disorder
CPT/HCPCS: 83036; 84439; 84443; 87081

== ENCOUNTER 2019-04-05 21:07 | Inpatient (IN) | payer MEDICARE, MEDICAID ==
[~2019-04-05] VITALS: Ht 167.6 cm; Wt 74.4 kg
[2019-04-05] MEDS: HALOPERIDOL 10 MG TABLET PO SCH (01:00)
[2019-04-05] MEDS: BENZTROPINE MESYLATE 2 MG TABLET PO SCH (01:00)
[~2019-04-05 21:07] MED LIST changes: -BENZ1TAB10 PO; -LORA0.5T2 PO
[2019-04-05 21:58] VITALS: BP 136/82
[2019-04-06] MEDS ORDERED: CloZAPine 100 MG TABLET PO SCH (00:07)
[2019-04-06 00:15] VITALS: BP 147/64
[2019-04-06] MEDS ORDERED: INFLUENZA VIRUS VACCINE QVS 2019-20 (3YR+)/PF 60 MCG/0.5 ML SYRINGE IM ONE (00:15)
[2019-04-06] MEDS: LORazepam 2 MG TABLET PO PRN ×3 (00:28→18:41)
[2019-04-06] MEDS: ZOLPIDEM TARTRATE 10 MG TABLET PO PRN ×2 (00:28→20:53)
[2019-04-06 08:08] VITALS: BP 116/68
[2019-04-06] MEDS: HALOPERIDOL 5 MG TABLET PO PRN (08:12)
[2019-04-06] MEDS: BENZTROPINE MESYLATE 1 MG TABLET PO SCH (08:12)
[2019-04-06 08:30] LABS: BASOPHILS % (AUTO) 1.2 % (0.0-2.0); EOSINOPHILS % (AUTO) 0.4 % (1.0-6.0); HEMATOCRIT 38.7 % (36-46); HEMOGLOBIN 12.7 g/dL (12.0-16.0); LYMPHOCYTES # (AUTO) 1.7 K/uL (1.0-4.8); LYMPHOCYTES % (AUTO) 25.9 % (22.0-44.0); MEAN CORPUSCULAR HEMOGLOBIN 29.2 pg (26.0-34.0); MEAN CORPUSCULAR HGB CONC 32.9 G/dL (31.0-37.0); MEAN CORPUSCULAR VOLUME 89 fL (80-100); MONOCYTES # (AUTO) 0.7 K/uL (0.1-1.0); MONOCYTES % (AUTO) 9.9 % (2.0-9.0); NEUTROPHILS # (AUTO) 4.2 K/uL (1.8-7.7); NEUTROPHILS % (AUTO) 62.6 % (40.0-70.0); PLATELET COUNT (AUTO) 289 K/uL (150-450); RED BLOOD CELL COUNT(AUTO) 4.36 MIL/uL (4.00-5.20); RED CELL DISTRIBUTION WIDTH 13.4 % (11.5-14.5)
[2019-04-06 09:02] LABS: ALANINE AMINOTRANSFERASE 14 U/L (12-78); ALBUMIN 3.8 g/dL (3.4-5.0); ALKALINE PHOSPHATASE 78 U/L (46-116); ANION GAP 8 mmol/L (8-16); ASPARTATE AMINOTRANSFERASE 14 U/L (15-37); BILIRUBIN,TOTAL 0.2 mg/dL (0.1-1.0); CALCIUM, TOTAL 9.1 mg/dL (8.8-10.5); CARBON DIOXIDE 27 mmol/L (22-29); CHLORIDE 105 mmol/L (98-107); CHOL/HDL RATIO 2.5 (3.9-5.7); CHOLESTEROL 148 mg/dL (131-200); CREATININE 0.75 mg/dL (0.60-1.30); FREE T4 (FREE THYROXINE) 0.93 ng/dL (0.76-1.46); GLOMERULAR FILTR. RATE CALC > 60 mL/min (>60); GLUCOSE,RANDOM 93 mg/dL (70-110); HCG,QUANTITATIVE < 1 mIU/mL (0-6); HDL CHOLESTEROL 60 mg/dL (40-60); LDL CHOL (CALC.) 66 mg/dL (0-130); POTASSIUM 4.3 mmol/L (3.5-5.1); SODIUM SERUM 140 mmol/L (136-145); THYROID STIMULATING HORMONE 2.02 uIU/mL (0.36-3.74); TOTAL PROTEIN, SERUM 7.8 g/dL (6.4-8.2); TRIGLYCERIDES 110 mg/dL (15-150); UREA NITROGEN, BLOOD 15 mg/dL (7-18)
[2019-04-06] MEDS ORDERED: ALBUTEROL SULFATE HFA 90 MCG/PUFF 8 GM INHALER IH PRN (09:30)
[2019-04-06] MEDS ORDERED: BACITRACIN 28.4 GM OINTMENT TP PRN (09:30)
[2019-04-06] MEDS ORDERED: CloNIDine HCL 0.1 MG TABLET PO PRN (09:30)
[2019-04-06] MEDS ORDERED: PETROLATUM,WHITE 28 GM JELLY TP PRN (09:30)
[2019-04-06] MEDS ORDERED: IBUPROFEN 600 MG TABLET PO PRN (09:30)
[2019-04-06] MEDS ORDERED: BENZOCAINE/MENTHOL LOZENGE MM PRN (09:30)
[2019-04-06] MEDS ORDERED: MAG HYDROX/AL HYDROX/SIMETH ES 30 ML SUSPENSION UDCUP PO PRN (09:30)
[2019-04-06] MEDS ORDERED: LOPERAMIDE HCL 2 MG CAPSULE PO PRN (09:30)
[2019-04-06] MEDS ORDERED: ONDANSETRON HCL 4 MG TABLET PO PRN (09:30)
[2019-04-06 16:30] VITALS: BP 125/83
[2019-04-06] MEDS: CloZAPine 100 MG TABLET PO SCH (16:32)
[2019-04-06] MEDS: ACETAMINOPHEN 325 MG TABLET PO PRN (17:26)
[2019-04-06] MEDS: POLYETHYLENE GLYCOL 3350 17 GM PACKET PO SCH (20:18)
[2019-04-06] MEDS: HALOPERIDOL 10 MG TABLET PO SCH (20:19)
[2019-04-06] MEDS: BENZTROPINE MESYLATE 2 MG TABLET PO SCH (20:19)
[2019-04-07 04:34] VITALS: BP 129/79
[2019-04-07] MEDS: OMEPRAZOLE 20 MG CAPSULE PO SCH (08:11)
[2019-04-07] MEDS: CloZAPine 100 MG TABLET PO SCH ×2 (08:11→16:28)
[2019-04-07] MEDS: BENZTROPINE MESYLATE 1 MG TABLET PO SCH (08:12)
[2019-04-07] MEDS: LORazepam 2 MG TABLET PO PRN ×2 (08:12→16:28)
[2019-04-07] MEDS: DOCUSATE SODIUM 100 MG CAPSULE PO SCH (08:12)
[2019-04-07 08:22] VITALS: BP 107/64
[2019-04-07] MEDS: MAGNESIUM HYDROXIDE SUSPENSION 30 ML UDCUP PO PRN ×2 (10:14→16:28)
[2019-04-07] MEDS: HALOPERIDOL 5 MG TABLET PO PRN (13:14)
[2019-04-07 16:40] VITALS: BP 126/70
[2019-04-07] MEDS: POLYETHYLENE GLYCOL 3350 17 GM PACKET PO SCH (20:29)
[2019-04-07] MEDS: HALOPERIDOL 10 MG TABLET PO SCH (20:29)
[2019-04-07] MEDS: BENZTROPINE MESYLATE 2 MG TABLET PO SCH (20:29)
[2019-04-08 05:57] VITALS: BP 122/82
[2019-04-08 08:20] VITALS: BP 118/64
[2019-04-08] MEDS: BENZTROPINE MESYLATE 1 MG TABLET PO SCH (08:52)
[2019-04-08] MEDS: OMEPRAZOLE 20 MG CAPSULE PO SCH (08:53)
[2019-04-08] MEDS: CloZAPine 100 MG TABLET PO SCH ×2 (08:53→16:18)
[2019-04-08] MEDS: DOCUSATE SODIUM 100 MG CAPSULE PO SCH (08:53)
[2019-04-08] MEDS: LORazepam 2 MG TABLET PO PRN (16:17)
[2019-04-08 16:39] VITALS: BP 120/78
[2019-04-08] MEDS: POLYETHYLENE GLYCOL 3350 17 GM PACKET PO SCH (20:46)
[2019-04-08] MEDS: HALOPERIDOL 10 MG TABLET PO SCH (20:47)
[2019-04-08] MEDS: BENZTROPINE MESYLATE 2 MG TABLET PO SCH (21:19)
[2019-04-09 06:28] VITALS: BP 121/67
[2019-04-09] MEDS: MAGNESIUM HYDROXIDE SUSPENSION 30 ML UDCUP PO PRN (06:56)
[2019-04-09] MEDS: CloZAPine 100 MG TABLET PO SCH ×2 (08:25→16:15)
[2019-04-09] MEDS: DOCUSATE SODIUM 100 MG CAPSULE PO SCH (08:26)
[2019-04-09] MEDS: OMEPRAZOLE 20 MG CAPSULE PO SCH (08:26)
[2019-04-09] MEDS: BENZTROPINE MESYLATE 1 MG TABLET PO SCH (08:26)
[2019-04-09 08:28] VITALS: BP 112/66
[2019-04-09 13:30] VITALS: BP 122/76
[2019-04-09] MEDS: ACETAMINOPHEN 325 MG TABLET PO PRN (13:30)
[2019-04-09 16:27] VITALS: BP 140/87
[2019-04-09] MEDS: LORazepam 2 MG TABLET PO PRN (16:36)
[2019-04-09] MEDS: HALOPERIDOL 10 MG TABLET PO SCH (20:02)
[2019-04-09] MEDS: BENZTROPINE MESYLATE 2 MG TABLET PO SCH (20:02)
[2019-04-09] MEDS: POLYETHYLENE GLYCOL 3350 17 GM PACKET PO SCH (20:03)
[2019-04-10 02:30] VITALS: BP 124/72
[2019-04-10] MEDS: ACETAMINOPHEN 325 MG TABLET PO PRN (02:30)
[2019-04-10] MEDS: BENZTROPINE MESYLATE 1 MG TABLET PO SCH (08:00)
[2019-04-10] MEDS: CloZAPine 100 MG TABLET PO SCH ×2 (08:00→16:20)
[2019-04-10] MEDS: DOCUSATE SODIUM 100 MG CAPSULE PO SCH (08:00)
[2019-04-10] MEDS: OMEPRAZOLE 20 MG CAPSULE PO SCH (08:00)
[2019-04-10] MEDS: LORazepam 2 MG TABLET PO PRN ×2 (08:01→16:21)
[2019-04-10 08:19] VITALS: BP 114/70
[2019-04-10] MEDS: MAGNESIUM HYDROXIDE SUSPENSION 30 ML UDCUP PO PRN (12:41)
[2019-04-10] MEDS: HALOPERIDOL 5 MG TABLET PO PRN (14:49)
[2019-04-10 16:17] VITALS: BP 119/76
[2019-04-10] MEDS: POLYETHYLENE GLYCOL 3350 17 GM PACKET PO SCH (20:19)
[2019-04-10] MEDS: HALOPERIDOL 10 MG TABLET PO SCH (20:19)
[2019-04-10] MEDS: BENZTROPINE MESYLATE 2 MG TABLET PO SCH (20:19)
[2019-04-10] MEDS: ZOLPIDEM TARTRATE 10 MG TABLET PO PRN (21:29)
[2019-04-11 04:09] VITALS: BP 117/77
[2019-04-11] MEDS: BENZTROPINE MESYLATE 1 MG TABLET PO SCH (08:01)
[2019-04-11] MEDS: DOCUSATE SODIUM 100 MG CAPSULE PO SCH (08:01)
[2019-04-11] MEDS: CloZAPine 100 MG TABLET PO SCH ×2 (08:01→16:49)
[2019-04-11] MEDS: OMEPRAZOLE 20 MG CAPSULE PO SCH (08:04)
[2019-04-11 08:29] VITALS: BP 102/71
[2019-04-11] MEDS: LORazepam 2 MG TABLET PO PRN (09:16)
[2019-04-11] MEDS: MAGNESIUM HYDROXIDE SUSPENSION 30 ML UDCUP PO PRN (13:09)
[2019-04-11 16:26] VITALS: BP 128/78
[2019-04-11] MEDS: ACETAMINOPHEN 325 MG TABLET PO PRN (19:24)
[2019-04-11] MEDS: HALOPERIDOL 10 MG TABLET PO SCH (21:19)
[2019-04-11] MEDS: BENZTROPINE MESYLATE 2 MG TABLET PO SCH (21:19)
[2019-04-11] MEDS: ZOLPIDEM TARTRATE 10 MG TABLET PO PRN (21:19)
[2019-04-11] MEDS: POLYETHYLENE GLYCOL 3350 17 GM PACKET PO SCH (21:20)
[2019-04-12] MEDS: MAGNESIUM HYDROXIDE SUSPENSION 30 ML UDCUP PO PRN (04:17)
[2019-04-12 04:24] VITALS: BP 102/63
[2019-04-12 08:04] VITALS: BP 109/76
[2019-04-12] MEDS: BENZTROPINE MESYLATE 1 MG TABLET PO SCH (08:17)
[2019-04-12] MEDS: DOCUSATE SODIUM 100 MG CAPSULE PO SCH (08:17)
[2019-04-12] MEDS: OMEPRAZOLE 20 MG CAPSULE PO SCH (08:17)
[2019-04-12] MEDS: CloZAPine 100 MG TABLET PO SCH ×2 (08:17→16:33)
[2019-04-12] MEDS: LORazepam 2 MG TABLET PO PRN ×2 (08:18→17:16)
[2019-04-12] MEDS ORDERED: SODIUM PHOS/SODIUM BIPHOS 133 ML ENEMA PR ONE (16:00)
[2019-04-12 16:28] VITALS: BP 139/75
[2019-04-12] MEDS: HALOPERIDOL 10 MG TABLET PO SCH (20:30)
[2019-04-12] MEDS: BENZTROPINE MESYLATE 2 MG TABLET PO SCH (20:30)
[2019-04-12] MEDS: POLYETHYLENE GLYCOL 3350 17 GM PACKET PO SCH (20:30)
[2019-04-13 04:23] VITALS: BP 123/65
[2019-04-13] MEDS: BENZTROPINE MESYLATE 1 MG TABLET PO SCH (07:59)
[2019-04-13] MEDS: OMEPRAZOLE 20 MG CAPSULE PO SCH (07:59)
[2019-04-13] MEDS: DOCUSATE SODIUM 100 MG CAPSULE PO SCH (07:59)
[2019-04-13] MEDS: CloZAPine 100 MG TABLET PO SCH ×2 (07:59→16:07)
[2019-04-13] MEDS: LORazepam 2 MG TABLET PO PRN ×2 (07:59→17:22)
[2019-04-13 08:10] VITALS: BP 112/60
[2019-04-13 08:52] LABS: BASOPHILS % (AUTO) 0.5 % (0.0-2.0); EOSINOPHILS % (AUTO) 1.5 % (1.0-6.0); HEMATOCRIT 41.2 % (36-46); HEMOGLOBIN 13.4 g/dL (12.0-16.0); LYMPHOCYTES # (AUTO) 2.6 K/uL (1.0-4.8); MEAN CORPUSCULAR HEMOGLOBIN 29.1 pg (26.0-34.0); MEAN CORPUSCULAR HGB CONC 32.6 G/dL (31.0-37.0); MEAN CORPUSCULAR VOLUME 89 fL (80-100); MONOCYTES # (AUTO) 0.7 K/uL (0.1-1.0); MONOCYTES % (AUTO) 10.4 % (2.0-9.0); NEUTROPHILS % (AUTO) 46.6 % (40.0-70.0); PLATELET COUNT (AUTO) 293 K/uL (150-450); RED BLOOD CELL COUNT(AUTO) 4.61 MIL/uL (4.00-5.20); RED CELL DISTRIBUTION WIDTH 13.5 % (11.5-14.5)
[2019-04-13 16:26] VITALS: BP 140/89
[2019-04-13] MEDS: POLYETHYLENE GLYCOL 3350 17 GM PACKET PO SCH (20:19)
[2019-04-13] MEDS: HALOPERIDOL 10 MG TABLET PO SCH (20:19)
[2019-04-13] MEDS: ZOLPIDEM TARTRATE 10 MG TABLET PO PRN (20:19)
[2019-04-13] MEDS: BENZTROPINE MESYLATE 2 MG TABLET PO SCH (20:20)
[2019-04-14 06:55] VITALS: BP 122/63
[2019-04-14 08:07] VITALS: BP 118/75
[2019-04-14] MEDS: OMEPRAZOLE 20 MG CAPSULE PO SCH (08:09)
[2019-04-14] MEDS: DOCUSATE SODIUM 100 MG CAPSULE PO SCH (08:09)
[2019-04-14] MEDS: BENZTROPINE MESYLATE 1 MG TABLET PO SCH (08:11)
[2019-04-14] MEDS: CloZAPine 100 MG TABLET PO SCH ×2 (08:13→16:09)
[2019-04-14] MEDS: LORazepam 2 MG TABLET PO PRN (11:07)
[2019-04-14 16:02] VITALS: BP 129/74
[2019-04-14] MEDS: HALOPERIDOL 10 MG TABLET PO SCH (20:20)
[2019-04-14] MEDS: BENZTROPINE MESYLATE 2 MG TABLET PO SCH (20:20)
[2019-04-14] MEDS: ZOLPIDEM TARTRATE 10 MG TABLET PO PRN (20:20)
[2019-04-14] MEDS: POLYETHYLENE GLYCOL 3350 17 GM PACKET PO SCH (20:21)
[2019-04-15 01:37] VITALS: BP 103/76
[2019-04-15 02:29] VITALS: BP 106/69
[2019-04-15] MEDS: ACETAMINOPHEN 325 MG TABLET PO PRN (02:29)
[2019-04-15] MEDS: CloZAPine 100 MG TABLET PO SCH ×2 (08:11→16:02)
[2019-04-15] MEDS: DOCUSATE SODIUM 100 MG CAPSULE PO SCH (08:11)
[2019-04-15] MEDS: LORazepam 2 MG TABLET PO PRN (08:11)
[2019-04-15] MEDS: BENZTROPINE MESYLATE 1 MG TABLET PO SCH (08:11)
[2019-04-15] MEDS: OMEPRAZOLE 20 MG CAPSULE PO SCH (08:11)
[2019-04-15 08:12] VITALS: BP 109/71
[2019-04-15] MEDS ORDERED: BENZ1TAB10 PO (10:53)
[2019-04-15] MEDS ORDERED: DOCU-275 PO (12:09)
== END 2019-04-15 14:00 | disposition home or self-care (01) | DRG 885 ==
LOC: B3A 21:57
PROVIDERS: ADMIT Psychiatry & Neurology Psychiatry; ATTEND Psychiatry & Neurology Psychiatry
DX: F20.0 Paranoid schizophrenia (principal); R45.851 Suicidal ideations; K21.9 Gastro-esophageal reflux disease without esophagitis; K59.00 Constipation, unspecified; G47.00 Insomnia, unspecified
CPT/HCPCS: 84436; 84439; 84443

== ENCOUNTER 2019-05-18 12:00 | Inpatient (IN) | payer MEDICARE, MEDICAID ==
[~2019-05-18] VITALS: Ht 162.6 cm; Wt 74.5 kg
[~2019-05-18 12:00] MED LIST changes: +BENZ1TAB10 PO; +DOCU-275 PO
[2019-05-18 12:51] VITALS: BP 126/79
[2019-05-18 14:07] VITALS: BP 137/78
[2019-05-18 16:02] VITALS: BP 131/90
[2019-05-18] MEDS: HALOPERIDOL 5 MG TABLET PO PRN (16:22)
[2019-05-18] MEDS: LORazepam 2 MG TABLET PO PRN (16:22)
[2019-05-18] MEDS ORDERED: ALBUTEROL SULFATE HFA 90 MCG/PUFF 8 GM INHALER IH PRN (18:45)
[2019-05-18] MEDS ORDERED: BACITRACIN 28.4 GM OINTMENT TP PRN (18:45)
[2019-05-18] MEDS ORDERED: BENZOCAINE/MENTHOL LOZENGE MM PRN (18:45)
[2019-05-18] MEDS ORDERED: ACETAMINOPHEN 325 MG TABLET PO PRN (18:45)
[2019-05-18] MEDS ORDERED: ONDANSETRON HCL 4 MG TABLET PO PRN (18:45)
[2019-05-18] MEDS ORDERED: LOPERAMIDE HCL 2 MG CAPSULE PO PRN (18:45)
[2019-05-18] MEDS ORDERED: IBUPROFEN 600 MG TABLET PO PRN (18:45)
[2019-05-18] MEDS ORDERED: CloNIDine HCL 0.1 MG TABLET PO PRN (18:45)
[2019-05-18] MEDS ORDERED: MAG HYDROX/AL HYDROX/SIMETH ES 30 ML SUSPENSION UDCUP PO PRN (18:45)
[2019-05-18] MEDS: ZOLPIDEM TARTRATE 10 MG TABLET PO PRN (20:08)
[2019-05-19 00:42] VITALS: BP 124/85
[2019-05-19] MEDS: LORazepam 2 MG TABLET PO PRN ×3 (01:20→13:22)
[2019-05-19 07:42] LABS: AMPHET/METH SCREEN,URINE NEGATIVE (NEGATIVE); BARBITURATE SCREEN, URINE NEGATIVE (NEGATIVE); BENZODIAZEPINES SCREEN,URINE NEGATIVE (NEGATIVE); CANNABINOID SCREEN,URINE NEGATIVE (NEGATIVE); COCAINE SCREEN,URINE NEGATIVE (NEGATIVE); METHADONE SCREEN, URINE NEGATIVE (NEGATIVE); OPIATE SCREEN,URINE NEGATIVE (NEGATIVE)
[2019-05-19 07:44] LABS: APPEARANCE,URINE CLOUDY (CLEAR); BILIRUBIN,URINE NEGATIVE (NEGATIVE); GLUCOSE, URINE (UA) NEGATIVE (NEGATIVE); KETONES,URINE NEGATIVE (NEGATIVE); LEUKOCYTE ESTERASE ,URINE NEGATIVE (NEGATIVE); NITRATE,URINE NEGATIVE (NEGATIVE); OCCULT BLOOD,URINE LARGE (NEGATIVE); PROTEIN,URINE NEGATIVE (NEGATIVE); UROBILINOGEN,URINE 0.2 mg/dL (<=1.0)
[2019-05-19 07:45] LABS: PHENCYCLIDINE SCREEN,URINE NEGATIVE (NEGATIVE)
[2019-05-19 08:08] LABS: BACTERIA,URINE None Seen /HPF (None Seen); SQUAMOUS EPITHELIAL CELL,UR Many /LPF (None Seen); WBC,URINE None Seen /HPF (0-5)
[2019-05-19 08:14] VITALS: BP 122/74
[2019-05-19] MEDS: OMEPRAZOLE 20 MG CAPSULE PO SCH (08:21)
[2019-05-19] MEDS: DOCUSATE SODIUM 100 MG CAPSULE PO SCH (08:21)
[2019-05-19] MEDS: BENZTROPINE MESYLATE 1 MG TABLET PO SCH (10:20)
[2019-05-19] MEDS: CloZAPine 100 MG TABLET PO SCH ×2 (10:21→17:40)
[2019-05-19] MEDS: MAGNESIUM HYDROXIDE SUSPENSION 30 ML UDCUP PO PRN (10:41)
[2019-05-19 17:38] VITALS: BP 122/67
[2019-05-19] MEDS: HALOPERIDOL 10 MG TABLET PO SCH (20:53)
[2019-05-19 20:54] VITALS: BP 118/89
[2019-05-19] MEDS: BENZTROPINE MESYLATE 2 MG TABLET PO SCH (20:54)
[2019-05-20 05:46] VITALS: BP 125/75
[2019-05-20 07:09] LABS: BASOPHILS % (AUTO) 0.9 % (0.0-2.0); HEMOGLOBIN 12.3 g/dL (12.0-16.0); LYMPHOCYTES # (AUTO) 2.3 K/uL (1.0-4.8); LYMPHOCYTES % (AUTO) 39.6 % (22.0-44.0); MEAN CORPUSCULAR HEMOGLOBIN 29.3 pg (26.0-34.0); MEAN CORPUSCULAR HGB CONC 33.4 G/dL (31.0-37.0); MEAN CORPUSCULAR VOLUME 88 fL (80-100); MONOCYTES # (AUTO) 0.6 K/uL (0.1-1.0); MONOCYTES % (AUTO) 10.5 % (2.0-9.0); NEUTROPHILS # (AUTO) 2.8 K/uL (1.8-7.7); PLATELET COUNT (AUTO) 221 K/uL (150-450); RED BLOOD CELL COUNT(AUTO) 4.22 MIL/uL (4.00-5.20); RED CELL DISTRIBUTION WIDTH 13.3 % (11.5-14.5)
[2019-05-20 08:24] VITALS: BP 123/71
[2019-05-20] MEDS: BENZTROPINE MESYLATE 1 MG TABLET PO SCH (09:45)
[2019-05-20] MEDS: DOCUSATE SODIUM 100 MG CAPSULE PO SCH (09:46)
[2019-05-20] MEDS: OMEPRAZOLE 20 MG CAPSULE PO SCH (09:46)
[2019-05-20] MEDS: CloZAPine 100 MG TABLET PO SCH ×2 (09:49→16:21)
[2019-05-20] MEDS: HALOPERIDOL 5 MG TABLET PO PRN (12:15)
[2019-05-20 12:22] VITALS: BP 105/75
[2019-05-20] MEDS: LORazepam 1 MG TABLET PO PRN (16:21)
[2019-05-20 16:44] VITALS: BP 118/83
[2019-05-20] MEDS: MAGNESIUM HYDROXIDE SUSPENSION 30 ML UDCUP PO PRN (17:08)
[2019-05-20] MEDS: HALOPERIDOL 10 MG TABLET PO SCH (20:21)
[2019-05-20] MEDS: BENZTROPINE MESYLATE 2 MG TABLET PO SCH (20:21)
[2019-05-20] MEDS: ZOLPIDEM TARTRATE 10 MG TABLET PO PRN (20:22)
[2019-05-21 04:37] VITALS: BP 116/77
[2019-05-21] MEDS: CloZAPine 100 MG TABLET PO SCH ×2 (08:00→16:02)
[2019-05-21] MEDS: OMEPRAZOLE 20 MG CAPSULE PO SCH (08:00)
[2019-05-21] MEDS: BENZTROPINE MESYLATE 1 MG TABLET PO SCH (08:00)
[2019-05-21] MEDS: DOCUSATE SODIUM 100 MG CAPSULE PO SCH (08:00)
[2019-05-21] MEDS: LORazepam 1 MG TABLET PO PRN ×2 (08:08→15:01)
[2019-05-21 08:13] VITALS: BP 119/69
[2019-05-21] MEDS: PETROLATUM,WHITE 28 GM JELLY TP PRN (13:23)
[2019-05-21 16:23] VITALS: BP 156/83
[2019-05-21] MEDS: BENZTROPINE MESYLATE 2 MG TABLET PO SCH (20:15)
[2019-05-21] MEDS: ZOLPIDEM TARTRATE 10 MG TABLET PO PRN (20:15)
[2019-05-21] MEDS: HALOPERIDOL 10 MG TABLET PO SCH (20:15)
[2019-05-22 02:11] VITALS: BP 120/73
[2019-05-22 08:04] VITALS: BP 117/70
[2019-05-22] MEDS: OMEPRAZOLE 20 MG CAPSULE PO SCH (08:57)
[2019-05-22] MEDS: DOCUSATE SODIUM 100 MG CAPSULE PO SCH (08:58)
[2019-05-22] MEDS: CloZAPine 100 MG TABLET PO SCH ×2 (08:58→16:12)
[2019-05-22] MEDS: BENZTROPINE MESYLATE 1 MG TABLET PO SCH (08:58)
[2019-05-22] MEDS: LORazepam 1 MG TABLET PO PRN ×2 (09:02→17:01)
[2019-05-22 16:52] VITALS: BP 128/78
[2019-05-22] MEDS: ZOLPIDEM TARTRATE 10 MG TABLET PO PRN (20:37)
[2019-05-22] MEDS: BENZTROPINE MESYLATE 2 MG TABLET PO SCH (20:37)
[2019-05-22] MEDS: HALOPERIDOL 10 MG TABLET PO SCH (20:37)
[2019-05-23 01:56] VITALS: BP 112/60
[2019-05-23] MEDS: CloZAPine 100 MG TABLET PO SCH ×2 (08:03→16:24)
[2019-05-23] MEDS: LORazepam 1 MG TABLET PO PRN ×2 (08:04→16:24)
[2019-05-23] MEDS: OMEPRAZOLE 20 MG CAPSULE PO SCH (08:04)
[2019-05-23] MEDS: BENZTROPINE MESYLATE 1 MG TABLET PO SCH (08:04)
[2019-05-23] MEDS: DOCUSATE SODIUM 100 MG CAPSULE PO SCH (08:04)
[2019-05-23 08:17] VITALS: BP 118/68
[2019-05-23] MEDS: PETROLATUM,WHITE 28 GM JELLY TP PRN (10:41)
[2019-05-23] MEDS: HALOPERIDOL 5 MG TABLET PO PRN (12:03)
[2019-05-23 16:09] VITALS: BP 135/80
[2019-05-23] MEDS: BENZTROPINE MESYLATE 2 MG TABLET PO SCH (20:52)
[2019-05-23] MEDS: HALOPERIDOL 10 MG TABLET PO SCH (20:53)
[2019-05-23 22:37] VITALS: BP 113/72
[2019-05-24 04:47] VITALS: BP 101/61
[2019-05-24] MEDS: LORazepam 1 MG TABLET PO PRN (06:56)
[2019-05-24] MEDS: BENZTROPINE MESYLATE 1 MG TABLET PO SCH (08:11)
[2019-05-24] MEDS: OMEPRAZOLE 20 MG CAPSULE PO SCH (08:11)
[2019-05-24] MEDS: DOCUSATE SODIUM 100 MG CAPSULE PO SCH (08:11)
[2019-05-24] MEDS: CloZAPine 100 MG TABLET PO SCH (08:11)
[2019-05-24] MEDS: HALOPERIDOL 5 MG TABLET PO PRN (12:49)
[2019-05-24 13:08] VITALS: BP 112/84
[2019-05-24] MEDS ORDERED: HALO10 PO (13:23)
[2019-05-24] MEDS ORDERED: BENZ2TAB10 PO (13:23)
[2019-05-24] MEDS ORDERED: CLOZ100 PO ×2 (13:23→13:25)
[2019-05-24] MEDS ORDERED: BENZ1TAB10 PO (13:23)
== END 2019-05-24 16:55 | disposition home or self-care (01) | DRG 885 ==
LOC: B3A 12:00
PROVIDERS: ADMIT Psychiatry & Neurology Child & Adolescent Psychiatry; ATTEND Psychiatry & Neurology Child & Adolescent Psychiatry
DX: F20.0 Paranoid schizophrenia (principal); R45.851 Suicidal ideations; K21.9 Gastro-esophageal reflux disease without esophagitis; K59.00 Constipation, unspecified; Z79.899 Other long term (current) drug therapy
CPT/HCPCS: Q0162